=== PATIENT | female | born 1950 | race Two or more races ===

== ENCOUNTER 2016-12-11 08:07 | Day surgery (SDC) | payer OTHER, MEDICAID ==
[~2016-12-11] VITALS: Ht 160 cm; Wt 79.8 kg
[~2016-12-11 08:07] MED LIST: ASCO500T11 PO; ASPI325T4 PO; CAR3125T PO; CLOP75TA28 PO; DOC100C PO; INSLANTI SC; INSUINJ9 SC; IODIXANOL 320MG/ML 100ML BTL IV ONE; LEVO750T64 PO; LIDOCAINE 2%HCL (LOCAL ANESTH.) INJ 20ML MDV ONE; LISI10TA6 PO; METF-372 PO; OMEP20CA74 PO; RANI-229 PO; RANI300C7 PO; SITA100T7 PO; SUCR1TAB PO; TRIA75TA55 PO
[2016-12-11] MEDS ORDERED: fentaNYL CITRATE 100 MCG/2 ML VL ONE (08:45)
[2016-12-11] MEDS ORDERED: ANGIOMAX 250 MG VIAL IV ONE (08:45)
[2016-12-11] MEDS ORDERED: SODIUM CHL 0.9% 50 ML ONE (08:46)
[2016-12-11] MEDS ORDERED: MIDAZOLAM HCL 1MG/1ML-2 ML VIAL ONE (08:46)
[2016-12-11] MEDS ORDERED: CLOPIDOGREL BISULFATE 75 MG TAB PO SCH (10:00)
== END 2016-12-11 14:50 | disposition home or self-care (01) ==
LOC: CATH 08:07
PROVIDERS: ATTEND Internal Medicine
DX: I20.9 Angina pectoris, unspecified (principal); Z95.1 Presence of aortocoronary bypass graft; F41.9 Anxiety disorder, unspecified; F32.9 Major depressive disorder, single episode, unspecified; N39.0 Urinary tract infection, site not specified; Z91.013 Allergy to seafood; Z88.6 Allergy status to analgesic agent; I25.2 Old myocardial infarction; I63.9 Cerebral infarction, unspecified
CPT/HCPCS: 36247; 82962; 93005; C1725; C1760; C1769; C1887; C1894; J0583; J1644; J2250; J3010; J7030; Q9967; 99152; 99153

== ENCOUNTER 2018-03-27 18:38 | Emergency (ER) | payer OTHER, MEDICAID ==
[~2018-03-27] VITALS: Ht 157.5 cm; Wt 77.1 kg
[~2018-03-27 18:38] MED LIST changes: -IODIXANOL 320MG/ML 100ML BTL IV ONE; -LIDOCAINE 2%HCL (LOCAL ANESTH.) INJ 20ML MDV ONE
[2018-03-27] MEDS ORDERED: ONDANSETRON HCL 4 MG/2 ML VIAL IV ONE (20:45)
[2018-03-27] MEDS ORDERED: HYDROmorphone HCL 2 MG/ML VL IV ONE ×2 (20:45→23:45)
[2018-03-28 00:21] VITALS: BP 146/52
== END 2018-03-28 00:42 | disposition short-term general hospital (02) ==
LOC: EDBD 18:38 → ER 18:42
DX: S42.222A 2-part displaced fracture of surgical neck of left humerus, initial encounter for closed fracture (principal); S50.02XA Contusion of left elbow, initial encounter; E11.9 Type 2 diabetes mellitus without complications; E78.5 Hyperlipidemia, unspecified; I10 Essential (primary) hypertension; J45.909 Unspecified asthma, uncomplicated; Z86.73 Personal history of transient ischemic attack (TIA), and cerebral infarction without residual deficits; Z79.4 Long term (current) use of insulin; Z79.899 Other long term (current) drug therapy; Z88.6 Allergy status to analgesic agent; Z91.013 Allergy to seafood; W01.0XXA Fall on same level from slipping, tripping and stumbling without subsequent striking against object, initial encounter; Y93.89 Activity, other specified; Y99.8 Other external cause status; Y92.009 Unspecified place in unspecified non-institutional (private) residence as the place of occurrence of the external cause
CPT/HCPCS: 29105; 73030; 73070; 93005; 96374; 96375; 96376; 99285; J1170; J2405

== ENCOUNTER 2021-08-13 20:11 | Emergency (ER) | payer OTHER, MEDICAID ==
[~2021-08-13] VITALS: Ht 157.5 cm; Wt 89.1 kg
[~2021-08-13 20:11] MED LIST changes: +LISI-716 PO; -LISI10TA6 PO; -RANI-229 PO; +RANI300T PO
[2021-08-13 22:26] LABS: Basophils # (auto) 0 10 ^3/uL (0-0.2); Basophils % (auto) 0.4 % (0.0-2.0); Eosinophils # (auto) 0.3 10 ^3/uL (0-0.8); Eosinophils % (auto) 3.8 % (0.0-7.0); Hemoglobin 11.4 g/dL (12.2-16.2); Lymphocytes # (auto) 3.1 10 ^3/uL (0.4-5.4); Lymphocytes % (auto) 41.4 % (10.0-50.0); Mean Corpuscular Hemoglobin 29.7 pg (28.0-32.0); Mean Corpuscular Hgb Conc. 32.6 g/dL (32.0-36.0); Mean Corpuscular Volume 91.2 fL (80.0-100.0); Monocytes # (auto) 0.4 10 ^3/uL (0-1.3); Monocytes % (auto) 5.8 % (0.0-12.0); Neutrophils # (auto) 3.6 10 ^3/uL (1.6-8.6); Neutrophils % (auto) 48.6 % (37.0-80.0); Nucleated Red Blood Cells % 0.1 %; Red Blood Cells 3.84 10^6/uL (4.0-5.20); Red Cell Distribution Width 13.5 % (11.8-14.3); White Blood Cell 7.4 10^3/uL (4.4-10.8)
[2021-08-13 22:43] LABS: Albumin 3.6 g/dL (3.4-5.0); Calcium 8.7 mg/dL (8.5-10.1); Potassium 4.5 mmol/L (3.5-5.1)
[2021-08-13 22:47] LABS: Bilirubin, Total 0.2 mg/dL (0.2-1.0); Total Protein 7.6 g/dL (6.4-8.2)
[2021-08-14 00:25] LABS: Urine Bacteria NONE SEEN /hpf (None Seen); Urine Blood TRACE /uL (Negative); Urine Specific Gravity 1.018 (1.001-1.035); Urine WBC 1 /hpf (0 - 5)
[2021-08-14 01:33] VITALS: BP 147/68
== END 2021-08-14 05:00 | disposition left against medical advice (07) ==
LOC: ER 20:11
DX: I10 Essential (primary) hypertension (principal); Z53.21 Procedure and treatment not carried out due to patient leaving prior to being seen by health care provider
CPT/HCPCS: 36415; 80053; 81001; 84484; 85025; 93005

== ENCOUNTER 2025-01-16 11:06 | Inpatient (IN) | payer MEDICARE, MEDICAID ==
[~2025-01-16] VITALS: Ht 157.5 cm; Wt 84.6 kg
[~2025-01-16 11:06] MED LIST changes: -ASPI325T4 PO; +ASPI325T6 PO; +LEVO750T40 PO; -LEVO750T64 PO; -LISI-716 PO; +LISI10TA34 PO
--- NOTE | 2025-01-16 11:46 | ED.PDOC ---
History of Present Illness(SKN HPI Comments 74y F who presents to the ED for chief complaint of wound care. Pt presents with caregiver who states pt had a wound to the L great toe for the past 1x month after suffering cut from unknown cause. Pt was seen by podiatry and admitted for wound care and discharged Wednesday, 2 days prior. Pt caregiver called [facility] who sent outpatient antibiotics and Pt was seen at urgent care today and sent to the ED for further evaluation. Pt now in the ED, has drainage from wound. PT otherwise denies any other symptoms at this time. Chief Complaint: Wound Check Time Seen by MD: 11:35 Primary Care Provider: HIRAM History of Present Illness: Medications, Allergies Allergies: Coded Allergies: Ceftriaxone (Verified Allergy, Unknown, 09/25/15) Morphine (Unverified Allergy, Unknown, 12/08/16) Shrimp Flavor Agent (non-screening) (Verified Allergy, Unknown, 12/08/16) Home Meds Reported Medications Triamterene & Hydrochlorothiaz (Maxzide) 1 Tab Tab, 1 TAB PO DAILY, #30 TAB 5 Refills 12/08/16 Ascorbic Acid (VITAMIN C TABLET) 500 Mg Tb, 1 TAB PO DAILY, #30 TAB 3 Refills 12/08/16 Ranitidine Hcl (Ranitidine Hcl) 300 Mg Cap, 1 CAP PO DAILY, #30 CAP 3 Refills 12/08/16 Levofloxacin Hemihydrate (LEVOFLOXACIN) 750 Mg Tab, 750 MG PO DAILY, MG 12/08/16 Sucralfate (Sucralfate) 1 Gm Tab, 1 GM PO DAILY, GM 12/08/16 Lisinopril (Lisinopril) 10 Mg Tab, 10 MG PO DAILY, TAB 10/26/15 Aspirin (Aspirin) 325 Mg Tab, 1 TAB PO DAILY, #30 TAB 5 Refills 10/26/15 Carvedilol (Coreg) 3.125 Mg Tab, 1 TAB PO BID, #180 TAB 1 Refill 10/26/15 Docusate Sodium (COLACE CAPSULE) 100 Mg Cp, 100 MG PO HS, CP 10/26/15 Omeprazole (PRILOSEC) 20 Mg Cap, 40 MG PO DAILY, CAP 10/26/15 Clopidogrel Bisulfate (Plavix) 75 Mg Tab, 1 TAB PO DAILY, #90 TAB 1 Refill 10/26/15 Sitagliptin Phosphate (Januvia) 100 Mg Tab, 1 TAB PO DAILY, #30 TAB 5 Refills 10/26/15 Ranitidine Hcl (Ranitidine Hcl) 300 Mg Tab, 1 TAB PO QPM, #90 TAB 3 Refills 10/26/15 Metformin Hydrochloride (Metformin Hcl) 1,000 Mg Tab, 1000 MG PO BID 04/15/12 Insulin Glulisine (Apidra Solostar) Solostar Inj, 5 SC TIDWM 04/15/12 Insulin Glargine (Lantus) 100 Units/Ml Vial, 40 UNITS SC BID 04/15/12 Information Source: Patient, Friend Mode of Arrival: Wheelchair Brought in by: caregiver Severity: Moderate Timing: Weeks Past Medical History PAST MEDICAL HISTORY: Asthma, CVA, Depression, DM, High Lipids, HTN Surgical History: 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: No 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 Family History Family History: No family hx of Cancer, No family hx of DM, No family hx of HTN Social History Smoker: Non-Smoker Alcohol: Denies ETOH Use Drugs: Denies Drug Use Lives In: Home Constitutional: denies: chills, diaphoresis, fatigue, fever, malaise, sweats, weakness, others EENTM: denies: blurred vision, double vision, ear bleeding, ear discharge, ear drainage, ear pain, ear ringing, eye pain, eye redness, hearing loss, mouth pain, mouth swelling, nasal discharge, nose bleeding, nose congestion, nose pain, photophobia, tearing, throat pain, throat swelling, voice changes, others Respiratory: denies: cough, hemoptysis, orthopnea, SOB at rest, shortness of breath, SOB with excertion, stridor, wheezing, others Cardiovascular: denies: chest pain, dizzy spells, diaphoresis, Dyspnea on exertion, edema, irregular heart beat, left arm pain, lightheadedness, palpitations, PND, syncope, others Gastrointestinal: denies: abdomen distended, abdominal pain, blood streaked bowels, constipated, diarrhea, dysphagia, difficulty swallowing, hematemesis, melena, nausea, poor appetite, poor fluid intake, rectal bleeding, rectal pain, vomiting, others Genitourinary: denies: abnormal vagina bleeding, burning, dyspareunia, dysuria, flank pain, frequency, hematuria, incontinence, pain, , vagina discharge, urgency, others Neurological: denies: dizziness, fainting, headache, left sided numbness, left sided weakness, numbness, paresthesia, pre-existing deficit, right sided numbness, right sided weakness, seizure, speech problems, tingling, tremors, weakness, others Musculoskeletal: denies: back pain, gout, joint pain, joint swelling, muscle pain, muscle stiffness, neck pain, others Integumetry: reports: wounds (L great toe); denies: bruises, change in color, change in hair/nails, dryness, laceration, lesions, lumps, rash, others Allergic/Immunocompromised: denies: Difficulty Healing, Frequent Infections, Hives, Itching, others Hematologic/Lymphatic: denies: anemia, blood clots, easy bleeding, easy bruising, swollen glands, others Endocrine: denies: excessive hunger, excessive sweating, excessive thirst, excessive urination, flushing, intolerance to cold, intolerance to heat, unexpl ained weight gain, unexplained weight loss, others Psychiatric: denies: anxiety, bipolar disorder, depression, hopeless, panic disorder, schizophrenia, sleepless, suicidal, others All Other Systems: Reviewed and Negative Physical Exam General Appearance: No Apparent Distress, Normal HEENT: Normal ENT Inspection, Pharynx Normal, TMs Normal Neck: Full Range of Motion, Non-Tender, Normal, Normal Inspection Respiratory: Chest Non-Tender, Lungs Clear, No Accessory Muscle Use, No Respiratory Distress, Normal Breath Sounds Cardiovascular: No Edema, No JVD, No Murmur, No Gallop, Normal Peripheral Pulses, Regular Rate/Rhythm Breast Exam: Deferred Gastrointestinal: No Organomegaly, Non Tender, No Pulsatile Mass, Normal Bowel Sounds, Soft Genitalia: Deferred Pelvic: Deferred Rectal: Deferred Extremities: No calf tenderness, Normal capillary refill, Normal inspection, Normal range of motion, Non-tender, No pedal edema Musculoskeletal : Apperance: Normal Neurologic: Alert, greens tier II-XII nml as Tested, No Motor Deficits, Normal Affect, Normal Mood, No Sensory Deficits Cerebellar Function: Normal Reflexes: Normal Skin: Wounds (2 fiuld filler blisters 1x1 cm to lst metatarsal joint, cap refill less than 3 sec, neurovasculary intact) Lymphatic: No Adenopathy Was a procedure done? Was a procedure done?: No Differential Diagnosis (INTG) Differential Diagnosis: Puncture Wound Abscess: Abscess, Bacteremia, Cellulitis Differential Diagnosis: Osteomyelitis X-Ray, Labs, Meds, VS Vital Signs Date Time Temp Pulse Resp B/P (MAP) Pulse Ox O2 Delivery O2 Flow Rate FiO2 01/16/25 16:20 97.0 59 16 163/67 (99) 100 97.0 01/16/25 11:09 96.9 70 16 150/75 98 96.9 Lab Test 01/16/25 15:08 01/16/25 13:59 01/16/25 13:50 01/16/25 13:18 Range/Units Erythrocyte Sedimentation Rate 46 H 0-20 mm/hr Thyroid Stimulating Hormone (TSH) 1.46 0.55-4.78 uIU/mL Lactic Acid Level 0.8 0.4-2.0 mmol/L White Blood Count 7.2 4.4-10.8 10^3/uL Red Blood Count 3.76 L 4.0-5.20 10^6/uL Hemoglobin 11.5 L 12.2-16.2 g/dL Hematocrit 36.3 36.0-46.0 % Mean Corpuscular Volume 96.4 80.0-100.0 fL Mean Corpuscular Hemoglobin 30.5 28.0-32.0 pg Mean Corpuscular Hemoglobin Concent 31.7 L 32.0-36.0 g/dL Red Cell Distribution Width 14.6 H 11.8-14.3 % Platelet Count 341 140-450 10^3/uL Mean Platelet Volume 7.9 6.9-10.8 fL Neutrophils (%) (Auto) 53.4 37.0-80.0 % Lymphocytes (%) (Auto) 33.9 10.0-50.0 % Monocytes (%) (Auto) 8.5 0.0-12.0 % Eosinophils (%) (Auto) 3.5 0.0-7.0 % Basophils (%) (Auto) 0.7 0.0-2.0 % Neutrophils # (Auto) 3.8 1.6-8.6 10 ^3/uL Lymphocytes # (Auto) 2.4 0.4-5.4 10 ^3/uL Monocytes # (Auto) 0.6 0-1.3 10 ^3/uL Eosinophils # (Auto) 0.2 0-0.8 10 ^3/uL Basophils # (Auto) 0.1 0-0.2 10 ^3/uL Nucleated Red Blood Cells 0.1 % Prothrombin Time 10.2 9.3-11.8 sec Prothrombin Time INR 0.96 0.9-1.15 Activated Partial Thromboplast Time 25.1 24.5-34.5 SEC Sodium Level 138 136-145 mmol/L Potassium Level 4.9 3.5-5.1 mmol/L Chloride Level 108 H 98-107 mmol/L Carbon Dioxide Level 20 20-31 mmol/L Anion Gap 10 5-15 Blood Urea Nitrogen 29 H 9-23 mg/dL Creatinine 1.20 H 0.550-1.02 mg/dL Glomerular Filtration Rate Calc 47 >90 mL/min BUN/Creatinine Ratio 24.2 H 10.0-20.0 Serum Glucose 396 H 74-106 mg/dL Hemoglobin A1c 10.2 H <5.7 % A1C Calcium Level 9.0 8.7-10.4 mg/dL Phosphorus Level 3.9 2.4-5.1 mg/dL Magnesium Level 2.0 1.6-2.6 mg/dL C-Reactive Protein High Sensitivity 1.66 H <1.0 mg/dL Triglycerides Level 215 H < 150 mg/dL Cholesterol Level 134 < 200 mg/dL LDL Cholesterol 73 < 100 mg/dL HDL Cholesterol 32 L 40-59 mg/dL Vitamin B12 Level 680 211-911 pg/mL Vitamin D 25-Hydroxy 43.8 30.0-100 ng/mL Microbiology Date/Time Source Procedure Growth Status 01/16/25 13:59 Blood Blood Culture - Final NO GROWTH AFTER 5 DAYS OF INCUBATION. Complete 01/16/25 13:51 Blood Blood Culture - Final NO GROWTH AFTER 5 DAYS OF INCUBATION. [facility] [id number] [place] [address] Ph: [phone] DIAGNOSTIC IMAGING Diagnostic Imaging Report : [id number] Signed PATIENT: KP COMBS ACCT: [id number] UNIT: [id number] : 1950 LOC: ER ROOM / BED: / AGE / SEX: 74 / F ADM STATUS: REG ER SERVICE 1145 ORDERING PHYSICIAN: HONORIO TORRES NP PROCEDURE(s): LFTCT - CT L FOOT WO CONTRAST REASON: Toe pain & R/o OM of the great toe ORDER NUMBER(s): [id number], ACCESSION NUMBER(s): [id number] CLINICAL INDICATION: Toe pain R/o OM of the great toe. TECHNIQUE: Noncontrast CT of the left foot was performed. Sagittal and coronal reformatted images are provided. COMPARISON: None CT Dose: CTDI volume is 7.75 mGy. Dose-length product is 195.1 mGy*cm FINDINGS: No acute fracture. There is some cortical destruction in the 1st metatarsal head, adjacent to soft tissue swelling and subcutaneous gas in the great toe at the level of the IP joint. There are 2nd, 3rd, 4th and 5th hammertoe deformities. There is midfoot and forefoot arthrosis. There is fatty replacement in the muscles of the lower extremity. IMPRESSION: 1. Findings which may represent osteomyelitis in the 1st metatarsal bone, adjace nt to soft tissue inflammatory changes which may reflect cellulitis. MRI of the left foot is recommended for further evaluation. 2. Hammertoe deformities. All CT scans at this medical facility are performed using dose modulation techniques as appropriate to a performed exam including the following: Automated exposure control was utilized; adjustment of the MA and/or KV according to patient size; and use of iterative reconstruction technique. ATED BY: CHINEDU LU MD DICTATED DATE/TIME: 01/16/25 125 SIGNED BY: CHINEDU LU MD SIGNED DATE/TIME: 01/16/25 125 CC: X-Ray, Labs, Meds, VS Comment Patient arrives alert and oriented, ABC's intact, afebrile, vital signs stable, saturating well in room air Peripheral IV insertion+ labs were ordered. CBC was ordered to exclude anemia, blood loss, or infection. BMP was ordered to exclude electrolyte abnormalities, renal failure, dehydration, hyperglycemia Acid, sed rate, CRP, blood cultures were ordered Diagnostic imaging ordered by me and results interpreted by radiology : CT L foot 1. Findings which may represent osteomyelitis in the 1st metatarsal bone, adjace nt to soft tissue inflammatory changes which may reflect cellulitis. MRI of the left foot is recommended for further evaluation. 2. Hammertoe deformities. Patient well appearing. VSS. Given History, Exam, and Workup I have low suspicion for Necrotizing Fasciitis, Abscess, or DVT as cause of symptoms. Presentation consistent with Ostomyelitis Interventions: Vancomycin 1g IV Admit for IV abx, tissue evaluation/possible debridement, and continued monitoring Time of 1ST Reevaluation: 12:05 Reevaluation 1ST: Improved Patient Education/Counseling: Diagnosis, Treatment Family Education/Counseling: Diagnosis, Treatment SEPSIS Sepsis Screen Date sepsis recognized/suspect: Jan 16, 2025 Time Sepsis recognized/suspect: 1113 Recent Procedure: No On Antibiotic Therapy: No Respiratory Rate >20: No Heart Rate >90: No Temp<36 C (96.8 F) or >38.3 C: No SBP <90 or MAP <65 mmHG: No New Acute Mental Status Change: No Is the patient on CPAP, BIPAP,: No Physician Orders Ct L Foot Wo Contrast (01/16/25 11:45) Vital Signs Date Time Temp Pulse Resp B/P (MAP) Pulse Ox O2 Delivery O2 Flow Rate FiO2 01/16/25 16:20 97.0 59 16 163/67 (99) 100 97.0 01/16/25 11:09 96.9 70 16 150/75 98 96.9 Laboratory Tests Test 01/16/25 13:18 01/16/25 13:50 White Blood Count 7.2 10^3/uL (4.4-10.8) Lactic Acid Level 0.8 mmol/L (0.4-2.0) Departure 1 Departure Time of Disposition: 13:23 Impression: Primary Impression: Osteomyelitis of great toe of left foot Disposition: ADMITTED INPATIENT Condition: Fair Critical Care Note Critical Care Time?: No Stability Stability form required: No Heart Score Heart Score: Heart Score Response (Comments) Value History N/A 0 EKG N/A 0 Age N/A 0 Risk Factors N/A 0 Troponin N/A 0 Total 0 I personally scribed for HONORIO TORRES NP ([email or web address]) on 01/16/25 at 11:46. Electronically submitted by Feliberto Restrepo ([email or web address]). I personally scribed for HONORIO TORRES NP ([email or web address]) on 01/16/25 at 12:13. Electronically submitted by Feliberto Restrepo ([employer] I personally scribed for HONORIO TORRES NP ([email or web address]) on 01/16/25 at 13:12. Electronically submitted by Feliberto Restrepo ([email or web address]). HONORIO TORRES NP Jan 16, 2025 11:46
--- NOTE | 2025-01-16 12:54 | DVH ---
CLINICAL INDICATION: Toe pain R/o OM of the great toe. TECHNIQUE: Noncontrast CT of the left foot was performed. Sagittal and coronal reformatted images are provided. COMPARISON: None CT Dose: CTDI volume is 7.75 mGy. Dose-length product is 195.1 mGy*cm FINDINGS: No acute fracture. There is some cortical destruction in the 1st metatarsal head, adjacent to soft tissue swelling and subcutaneous gas in the great toe at the level of the IP joint. There are 2nd, 3rd, 4th and 5th hammertoe deformities. There is midfoot and forefoot arthrosis. There is fatty replacement in the muscles of the lower extremity. IMPRESSION: 1. Findings which may represent osteomyelitis in the 1st metatarsal bone, adjacent to soft tissue inflammatory changes which may reflect cellulitis. MRI of the left foot is recommended for further evaluation. 2. Hammertoe deformities. All CT scans at this medical facility are performed using dose modulation techniques as appropriate to a performed exam including the following: Automated exposure control was utilized; adjustment of the MA and/or KV according to patient size; and use of iterative reconstruction technique.
[2025-01-16] MEDS ORDERED: VANCOMYCIN PER PHARMACY 0 MG IV SCH ×2 (13:30→16:45)
[2025-01-16 13:36] LABS: Hematocrit 36.3 % (36.0-46.0); Hemoglobin 11.5 g/dL (12.2-16.2); Mean Corpuscular Hemoglobin 30.5 pg (28.0-32.0); Mean Corpuscular Volume 96.4 fL (80.0-100.0); Nucleated Red Blood Cells % 0.1 %
[2025-01-16 13:43] LABS: Potassium 4.9 mmol/L (3.5-5.1); Sodium 138 mmol/L (136-145)
[2025-01-16 13:44] LABS: Anion Gap 10 (5-15); Carbon Dioxide 20 mmol/L (20-31)
[2025-01-16 13:47] LABS: Chloride 108 mmol/L (98-107)
[2025-01-16 13:50] LABS: BUN/Creatinine Ratio 24.2 (10.0-20.0); Blood Urea Nitrogen 29 mg/dL (9-23); Glucose 396 mg/dL (74-106)
[2025-01-16 13:52] LABS: Calcium 9.0 mg/dL (8.7-10.4)
--- NOTE | 2025-01-16 16:41 | DVHHPRES ---
History of Present Illness Resident Creating Document: BYRON YOO RESIDENT History of Present Illness Kelly Mcarthur is a 74 year old female patient who presents to the ED with chief complaint of nausea, non bloody vomiting with c;ear emesis, fever, headaches and non healing left foot wound, which started 1 week before her admission. PAtient went to seek assistance at another hospital 1 week ago due to these symptoms, was hospitalized, but did not improve her symptoms after discharge. Denies any other associated symptoms. Past medical history: Hypertension, dyslipidemia, diabetes, CAD s/p CABG in 2015 and PCI (last one 2023), asthma, brain bleed in 2015, diabetic foot s/p right toes amputation, arthritis and CKD Surgical history: CABG 2015, PCI 2023, multiple staged right toes amputation last one 9 years ago, right ankle repair with plates placed. Family history: mother and father had heart disease Social history: Lives in [place] alone, has cargiver that goes from 4pm until 4 am (NOK son, Emre Rhodes). Denies current tobacco, alcohol and other drug abuse. Allergies: Ceftriaxone, morphine, shrimp Home medication: Does not recall PAtient seen and examined at bedside. Currently has no new complains. Patient admitted for further management Past Medical History Per HPI Past Surgical History Per HPI Family History PEr HPI Past Social History Per HPI Review of Systems Review of Systems Per HPI Allergies: Coded Allergies: Ceftriaxone (Verified Allergy, Unknown, 09/25/15) Morphine (Unverified Allergy, Unknown, 12/08/16) Shrimp Flavor Agent (non-screening) (Verified Allergy, Unknown, 12/08/16) Medications Current Medications Medications Dose Ordered Sig/Bree Route Start Time Stop Time Status Last Admin Dose Admin Vancomycin HCl 0 ml @ 0 mls/hr PER PHARMACY IV 01/16/25 13:30 UNV Exam Vital Signs Vital Signs Date Time Temp Pulse Resp B/P (MAP) Pulse Ox O2 Delivery O2 Flow Rate FiO2 01/16/25 16:20 97.0 59 16 163/67 (99) 100 97.0 Exam Patient lying in bed, in no acute distress General: Lucid, afebrile, mucosae are moist Cardiovascular: Normal S1 and S2. No murmurs, gallops or rubs Respiratory: Normal ventilation mechanics. Clear lung sounds on auscultation Abdomen: Soft, nontender, no organomegaly, normal bowel sounds MSK/skin: Mobilizes 4 limbs. Skin is dry and warm. Right toes amputaed, no purulent discharge nor erythema. Left foot has erythema on first metatarsal region. Diminished pedial and posterior tibial pulses. Neurological: Oriented in 3 spheres. No motor no sensitive deficits. Pupils are isocoric and reactive Labs/Xrays Labs Test 01/16/25 15:08 01/16/25 13:50 01/16/25 13:18 Range/Units Lactic Acid Level 0.8 0.4-2.0 mmol/L White Blood Count 7.2 4.4-10.8 10^3/uL Red Blood Count 3.76 L 4.0-5.20 10^6/uL Hemoglobin 11.5 L 12.2-16.2 g/dL Hematocrit 36.3 36.0-46.0 % Mean Corpuscular Volume 96.4 80.0-100.0 fL Mean Corpuscular Hemoglobin 30.5 28.0-32.0 pg Mean Corpuscular Hemoglobin Concent 31.7 L 32.0-36.0 g/dL Red Cell Distribution Width 14.6 H 11.8-14.3 % Platelet Count 341 140-450 10^3/uL Mean Platelet Volume 7.9 6.9-10.8 fL Neutrophils (%) (Auto) 53.4 37.0-80.0 % Lymphocytes (%) (Auto) 33.9 10.0-50.0 % Monocytes (%) (Auto) 8.5 0.0-12.0 % Eosinophils (%) (Auto) 3.5 0.0-7.0 % Basophils (%) (Auto) 0.7 0.0-2.0 % Neutrophils # (Auto) 3.8 1.6-8.6 10 ^3/uL Lymphocytes # (Auto) 2.4 0.4-5.4 10 ^3/uL Monocytes # (Auto) 0.6 0-1.3 10 ^3/uL Eosinophils # (Auto) 0.2 0-0.8 10 ^3/uL Basophils # (Auto) 0.1 0-0.2 10 ^3/uL Nucleated Red Blood Cells 0.1 % Sodium Level 138 136-145 mmol/L Potassium Level 4.9 3.5-5.1 mmol/L Chloride Level 108 H 98-107 mmol/L Carbon Dioxide Level 20 20-31 mmol/L Anion Gap 10 5-15 Blood Urea Nitrogen 29 H 9-23 mg/dL Creatinine 1.20 H 0.550-1.02 mg/dL Glomerular Filtration Rate Calc 47 >90 mL/min BUN/Creatinine Ratio 24.2 H 10.0-20.0 Serum Glucose 396 H 74-106 mg/dL Calcium Level 9.0 8.7-10.4 mg/dL C-Reactive Protein High Sensitivity 1.66 H <1.0 mg/dL SEPSIS Sepsis Screen Date sepsis recognized/suspect: Jan 16, 2025 Time Sepsis recognized/suspect: 1112 Recent Procedure: No On Antibiotic Therapy: No Respiratory Rate >20: No Heart Rate >90: No Temp<36 C (96.8 F) or >38.3 C: No SBP <90 or MAP <65 mmHG: No New Acute Mental Status Change: No Is the patient on CPAP, BIPAP,: No Physician Orders Ct L Foot Wo Contrast (01/16/25 11:45) Blood Culture (01/16/25 13:20) Erythrocyte Sedimentation Rate (01/16/25 13:20) Vancomycin Per Pharmacy (01/16/25 13:30) Admit (01/16/25 16:31) Code Status (01/16/25 16:31) Acetaminophen Tablet (Tylenol Tablet) (01/16/25 16:45) Ondansetron Hcl (Zofran) (01/16/25 16:45) Complete Blood Count (01/17/25 04:00) Comprehensive Metabolic Panel (01/17/25 04:00) Echo 2d Mode Cardiac Dop (01/16/25 16:31) Morphine Sulfate Injection (01/16/25 16:45) Lovenox 40mg (01/17/25 10:00) Oxygen By Nasal Cannula (01/16/25 16:31) Stat Ekg For Chest Pain (01/16/25 16:31) Notify Md Of Changes From Base (01/16/25 16:31) Elementary Vocal 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 Teacher For 24 Hours (01/16/25 16:31) Emergency Dysrhythmia Protocol (01/16/25 16:31) Rhythm Strips Once Every Shift (01/16/25 16:31) Urine Bacterial Culture (01/16/25 16:31) Respiratory Culture W/ Gs (01/16/25 16:31) Vitamin D, 25-Hydroxy (01/16/25 16:31) Vitamin B12 (01/16/25 16:31) Urinalysis (01/16/25 16:31) Thyroid Stimulating Hormone (01/16/25 16:31) PTPTT (01/16/25 16:31) Phosphorus (01/16/25 16:31) Magnesium (01/16/25 16:31) Lipid Panel (01/16/25 16:) Lactic Acid W/ Reflex Order (01/16/25 16:31) Hemoglobin A1c (01/16/25 16:31) Vancomycin (01/16/25 16:45) Zosyn Extended Infusion (01/16/25 22:00) NS (01/16/25 16:45) NS (01/16/25 16:45) *Podiatry Consult [facility](Dvmg) (01/16/25 16:31) * Wound Consult (01/16/25 ) Ascorbic Acid Tablet (Vitamin C Tablet) (01/17/25 10:00) Carvedilol Tablet (Coreg Tablet) (01/16/25 22:00) Clopidogrel Bisulfate (Plavix) (01/17/25 10:00) Docusate Sodium Capsule (Colace Capsule) (01/16/25 22:00) Insulin Lantus (Glargine) (Lantus) (01/16/25 22:00) Sucralfate Tab (Carafate Tab) (01/17/25 10:00) (Nf) Aspirin (01/17/25 10:00) (Nf) Lisinopril (01/17/25 10:00) (Nf) Omeprazole (Prilosec) (01/17/25 10:00) Wound Culture W/ Gs (01/16/25 16:31) Vital Signs Date Time Temp Pulse Resp B/P (MAP) Pulse Ox O2 Delivery O2 Flow Rate FiO2 01/16/25 16:20 97.0 59 16 163/67 (99) 100 97.0 01/16/25 11:09 96.9 70 16 150/75 98 96.9 Laboratory Tests Test 01/16/25 13:18 01/16/25 13:50 White Blood Count 7.2 10^3/uL (4.4-10.8) Lactic Acid Level 0.8 mmol/L (0.4-2.0) Assessment/Plan Assessment/Plan ASSESSMENT Osteomyelitis Cellulitis Diabetic foot complicated with osteomyelitis LEVI hemodynamically mediated (VMN) on CKD CAD s/p CABG and PCI Hypertension Dyslipidemia Diabetes Asthma History of hemorrhagic stroke Obese PLAN Admitted patient to [facility] Completed left foot CT: Osteomyelitis of 1st metatarsal and cellulitis Consulted podiatry and wound care Ordered cultures Currently under empiric IV antibiotics (Vancomycin and Zosyn) Ordered IV fluids Ordered echocardiogram and lower limb duplex US Goals of care discussed with patient for over 18 minutes: Full code status Discussed plan with Dr Robertson, patient and nurses: Admitted to [facility]. Under empiric IV antibiotics, IV fluids and with wound car. Consulted podiatry. Plan discussed with: Patient, Other My Orders Orders - BYRON YOO RESIDENT Procedure Category Date Status Time Admit ADMIT 01/16/25 Verified 16:31 Code Status CODE 01/16/25 Verified 16:31 Acetaminophen Tablet PHA 01/16/25 Verified (Tylenol Tablet) 16:45 Ondansetron Hcl PHA 01/16/25 Verified (Zofran) 16:45 Complete Blood Count LAB 01/17/25 Verified 04:00 Comprehensive LAB 01/17/25 Verified Metabolic Panel 04:00 Echo 2d Mode Cardiac US 01/16/25 Verified DOP 16:31 Morphine Sulfate PHA 01/16/25 Verified Injection 16:45 Lovenox 40mg PHA 01/17/25 Verified 10:00 Oxygen By Nasal RT 01/16/25 Verified Cannula 16:31 Stat Ekg For Chest [facility] 01/16/25 Verified Pain 16:31 Notify Of Changes [facility] 01/16/25 Verified From Base 16:31 Elementary Vocal Music Teacher For [facility] 01/16/25 Verified 24 Hours 16:31 Emergency Dysrhythmia [facility] 01/16/25 Verified Protocol 16:31 Rhythm Strips Once [facility] 01/16/25 Verified Every Shift 16:31 Urine Bacterial [facility] 01/16/25 Verified Culture 16:31 Respiratory Culture [facility] 01/16/25 Verified W/ Gs 16:31 Vitamin D, 25-Hydroxy LAB 01/16/25 Verified 16:31 Vitamin B12 LAB 01/16/25 Verified 16:31 Urinalysis LAB 01/16/25 Verified 16:31 Thyroid Stimulating LAB 01/16/25 Verified Hormone 16:31 PTPTT LAB 01/16/25 Verified 16:31 Phosphorus LAB 01/16/25 Verified 16:31 Magnesium LAB 01/16/25 Verified 16:31 Lipid Panel LAB 01/16/25 Verified 16:31 Lactic Acid W/ Reflex LAB 01/16/25 Verified Order 16:31 Hemoglobin A1c LAB 01/16/25 Verified 16:31 Vancomycin PHA 01/16/25 Verified 16:45 Zosyn Extended PHA 01/16/25 Verified Infusion 22:00 NS PHA 01/16/25 Verified 16:45 NS PHA 01/16/25 Verified 16:45 *Podiatry Consult CONS 01/16/25 Verified [facility]uss[facility](Dvmg) 16:31 * Wound Consult CONS 01/16/25 Verified Ascorbic Acid Tablet PHA 01/17/25 Verified (Vitamin C Tablet) 10:00 Carvedilol Tablet PHA 01/16/25 Verified (Coreg Tablet) 22:00 Clopidogrel Bisulfate PHA 01/17/25 Verified (Plavix) 10:00 Docusate Sodium PHA 01/16/25 Verified Capsule (Colace 22:00 Insulin Lantus PHA 01/16/25 Verified (Glargine) (Lantus) 22:00 Sucralfate Tab PHA 01/17/25 Verified (Carafate Tab) 10:00 (Nf) Aspirin PHA 01/17/25 Verified 10:00 (Nf) Lisinopril PHA 01/17/25 Verified 10:00 (Nf) Omeprazole PHA 01/17/25 Verified (Prilosec) 10:00 Wound Culture W/ Gs [facility] 01/16/25 Verified 16:31 Date of Service: Jan 16, 2025 Billing Provider: KALEIGH DO MD Common Visit Codes: [id number] INP/OBS CARE (HIGH) Secondary Visit Codes: 90225-[id number] CARE PLAN 30 MINUTES BYRON YOO RESIDENT Jan 16, 2025 16:41
[2025-01-16] MEDS ORDERED: DEXTROSE (50%) 50ML SYRG IV PRN ×2 (16:45→19:45)
[2025-01-16] MEDS ORDERED: MORPHINE SULFATE INJ 2 MG/ml SYRG IV PRN (16:45)
[2025-01-16] MEDS: ACCU-CHEK COMFORT CURVE STRIP VI SCH ×2 (17:00→22:24)
[2025-01-16] MEDS ORDERED: InsuLIN REG 1unit/0.01ml Soln (100units/ml) SC SCH (17:00)
[2025-01-16 17:08] LABS: Magnesium 2.0 mg/dL (1.6-2.6); Triglycerides 215.0 mg/dL (< 150)
[2025-01-16 17:09] LABS: Cholesterol 134.0 mg/dL (< 200)
[2025-01-16 17:10] LABS: HDL Cholesterol 32.0 mg/dL (40-59)
[2025-01-16 17:12] LABS: INR 0.96 (0.9-1.15); Partial Thromboplastin Time 25.1 SEC (24.5-34.5); Prothrombin Time 10.2 sec (9.3-11.8)
[2025-01-16] MEDS: SODIUM CHLORIDE 0.9% 1,000 ML IV SCH (19:41)
[2025-01-16] MEDS: SODIUM CHLORIDE 0.9% 500 ML IV ONE (19:58)
[2025-01-16] MEDS: PIPERACILLIN-TAZOB 3.375GM 100 ML IV ONE (19:59)
[2025-01-16 20:19] LABS: Urine Protein, UAD TRACE (Negative)
[2025-01-16 20:37] VITALS: BP 117/69; PULSE 67; RESP 16; RESP 18; TEMP 97.2; O2SAT 97
[2025-01-16] MEDS: INSULIN LANTUS (GLARGINE) 1 /0.01ml (100units/ml) SC SCH (21:00)
[2025-01-16] MEDS: DOCUSATE SOD 100 MG CAP PO SCH (22:00)
[2025-01-16] MEDS ORDERED: INSULIN LANTUS (GLARGINE) 1 /0.01ml (100units/ml) SC SCH (22:00)
[2025-01-16] MEDS: VANCOMYCIN 1GM/250ML KIT 250 ML IV ONE (22:19)
[2025-01-16] MEDS: InsuLIN REG 1unit/0.01ml Soln (100units/ml) SC SCH (22:21)
[2025-01-17] VITALS (11 sets, daily range): BP systolic 151–161; BP diastolic 47–84; PULSE 61–79; RESP 14–20; TEMP 97.5–98.6; O2SAT 94–98
[2025-01-17] MEDS: PIPERACILLIN-TAZOB 3.375GM 100 ML IV SCH (01:07)
[2025-01-17] MEDS: ACETAMINOPHEN 325 MG TAB PO PRN (02:48)
[2025-01-17 06:36] LABS: Hematocrit 31.2 % (36.0-46.0); Hemoglobin 10.6 g/dL (12.2-16.2); Mean Corpuscular Hemoglobin 30.8 pg (28.0-32.0); Mean Corpuscular Volume 90.4 fL (80.0-100.0); Nucleated Red Blood Cells % 0.0 %
[2025-01-17 07:06] LABS: Alanine Aminotransferase 22 U/L (7-40); Alkaline Phosphatase 68 U/L (46-116); Anion Gap 13 (5-15); BUN/Creatinine Ratio 27.2 (10.0-20.0); Calcium 8.8 mg/dL (8.7-10.4); Carbon Dioxide 21 mmol/L (20-31); Potassium 4.4 mmol/L (3.5-5.1); Sodium 142 mmol/L (136-145); Total Protein 6.9 g/dL (5.7-8.2)
[2025-01-17 07:08] LABS: Albumin 3.7 g/dL (3.2-4.8); Bilirubin, Total 0.3 mg/dL (0.2-1.0)
[2025-01-17 07:09] LABS: Blood Urea Nitrogen 31 mg/dL (9-23); Chloride 108 mmol/L (98-107); Glucose 116 mg/dL (74-106)
--- NOTE | 2025-01-17 08:19 | DVH ---
Bilateral Lower Extremity Arterial Duplex Clinical History: PAD Comparison: None Technique: Duplex Doppler evaluation including color Doppler and spectral/pulsed waveform analysis of the lower extremity arteries was performed. Findings: RIGHT: Peak systolic velocities are as follows: HEEL SPRAYER FIRST 176 cm/s Deep femoral 242 cm/s SFA proximal 150 cm/s SFA mid-portion 136 cm/s SFA distal 112 cm/s Popliteal 77 cm/s Posterior tibial 43 cm/s Anterior tibial 48 cm/s Peroneal N/V cm/s Dorsalis pedis 116 cm/s The waveforms are monophasic with diastolic flow. LEFT: Peak systolic velocities are as follows: HEEL SPRAYER FIRST 165 cm/s Deep femoral 152 cm/s SFA proximal 107 cm/s SFA mid-portion 124 cm/s SFA distal 125 cm/s Popliteal 173 cm/s Posterior tibial 131 cm/s Anterior tibial 108 cm/s Peroneal N/V cm/s Dorsalis pedis 143 cm/s The waveforms are monophasic with diastolic flow. IMPRESSION: 20-49% stenosis of bilateral common femoral arteries, right proximal superficial femoral artery, left popliteal artery based on peak systolic velocity criteria. Bilateral Abnormal monophasic arterial waveforms are present suggesting underlying peripheral arterial disease. REFERENCE VALUES, [facility] ([facility]) vascular Imaging Lab Criteria: Peak systolic velocity ranges (in cm/sec) are as follows: <150 cm/s - <20 % stenosis 150-200 cm/s - 20-49% stenosis 200-300 cm/s - 50-75% stenosis >300 cm/s -> 75% stenosis
[2025-01-17] MEDS ORDERED: LIDOCAINE 1% INJ PF 5ML AMP ONE (08:37)
[2025-01-17] MEDS ORDERED: GLYCOPYRROLATE 0.2 MG/ML 1ML VIAL ONE (08:37)
[2025-01-17] MEDS ORDERED: PROPOFOL 10 MG/ML 20 ML IV ONE (08:37)
[2025-01-17] MEDS ORDERED: ONDANSETRON HCL 4 MG/2 ML VIAL ONE (08:37)
--- NOTE | 2025-01-17 09:04 | DVHCONRES ---
Date Seen: Jan 17, 2025 Reason for Consultation Left foot wound History of Present Illness Kelly Mcarthur is a 74 year old female patient who presents to the ED with chief complaint of nausea, non bloody vomiting with c;ear emesis, fever, headaches and non healing left foot wound, which started 1 week before her ad mission. PAtient went to seek assistance at another hospital 1 week ago due to these symptoms, was hospitalized, but did not improve her symptoms after discharge. Denies any other associated symptoms. Past Medical History See H&P Past Surgical History See H&P Family History: Cancer G8 MOTHER G8 FATHER FH: heart attack G8 FATHER Family history: Diabetes mellitus G8 MOTHER G8 FATHER Allergies: Coded Allergies: Ceftriaxone (Verified Allergy, Unknown, 09/25/15) Morphine (Unverified Allergy, Unknown, 12/08/16) Shrimp Flavor Agent (non-screening) (Verified Allergy, Unknown, 12/08/16) Home Meds Reported Medications Triamterene & Hydrochlorothiaz (Maxzide) 1 Tab Tab, 1 TAB PO DAILY, #30 TAB 5 Refills 12/08/16 Ascorbic Acid (VITAMIN C TABLET) 500 Mg Tb, 1 TAB PO DAILY, #30 TAB 3 Refills 12/08/16 Ranitidine Hcl (Ranitidine Hcl) 300 Mg Cap, 1 CAP PO DAILY, #30 CAP 3 Refills 12/08/16 Levofloxacin Hemihydrate (LEVOFLOXACIN) 750 Mg Tab, 750 MG PO DAILY, MG 12/08/16 Sucralfate (Sucralfate) 1 Gm Tab, 1 GM PO DAILY, GM 12/08/16 Lisinopril (Lisinopril) 10 Mg Tab, 10 MG PO DAILY, TAB 10/26/15 Aspirin (Aspirin) 325 Mg Tab, 1 TAB PO DAILY, #30 TAB 5 Refills 10/26/15 Carvedilol (Coreg) 3.125 Mg Tab, 1 TAB PO BID, #180 TAB 1 Refill 10/26/15 Docusate Sodium (COLACE CAPSULE) 100 Mg Cp, 100 MG PO HS, CP 10/26/15 Omeprazole (PRILOSEC) 20 Mg Cap, 40 MG PO DAILY, CAP 10/26/15 Clopidogrel Bisulfate (Plavix) 75 Mg Tab, 1 TAB PO DAILY, #90 TAB 1 Refill 10/26/15 Sitagliptin Phosphate (Januvia) 100 Mg Tab, 1 TAB PO DAILY, #30 TAB 5 Refills 10/26/15 Ranitidine Hcl (Ranitidine Hcl) 300 Mg Tab, 1 TAB PO QPM, #90 TAB 3 Refills 10/26/15 Metformin Hydrochloride (Metformin Hcl) 1,000 Mg Tab, 1000 MG PO BID 04/15/12 Insulin Glulisine (Apidra Solostar) Solostar Inj, 5 SC TIDWM 04/15/12 Insulin Glargine (Lantus) 100 Units/Ml Vial, 40 UNITS SC BID 04/15/12 Current Medications Current Medications Medications (Trade) Dose Ordered Sig/Bree Route PRN Reason Start Time Stop Time Status Last Admin Vancomycin HCl 0 ml @ 0 mls/hr PER PHARMACY IV 01/16/25 13:30 01/16/25 17:47 DC Acetaminophen (Tylenol Tablet) 325 mg Q4HP PRN PO MILD PAIN (1-3 PAIN SCALE) 01/16/25 16:45 01/17/25 02:48 Ondansetron HCl (Zofran) 4 mg Q4HP PRN IV NAUSEA / VOMITING 01/16/25 16:45 Morphine Sulfate 2 mg Q4HPRN PRN IV SEVERE PAIN (7-10 PAIN SCALE) 01/16/25 16:45 Hold Enoxaparin Sodium (Lovenox) 40 mg DAILY SC 01/17/25 10:00 Vancomycin HCl 0 ml @ 0 mls/hr PER PHARMACY IV 01/16/25 16:45 Piperacillin Sod/ Tazobactam Sod 100 ml @ 25 mls/hr Q8H IV 01/17/25 02:00 01/17/25 01:07 Sodium Chloride 1,000 ml @ 75 mls/hr [id number] IV 01/16/25 16:45 Ascorbic Acid (Vitamin C Tablet) 500 mg DAILY PO 01/17/25 10:00 Carvedilol (Coreg Tablet) 3.125 mg BID PO 01/16/25 22:00 Hold Clopidogrel Bisulfate (Plavix) 75 mg DAILY PO 01/17/25 10:00 Future Hold Docusate Sodium (Colace Capsule) 100 mg HS PO 01/16/25 22:00 Insulin Glargine (Lantus) 40 units BID SC 01/16/25 22:00 01/16/25 19:54 DC Sucralfate (Carafate Tab) 1 gm DAILY PO 01/17/25 10:00 Future Hold Aspirin 325 mg DAILY PO 01/17/25 10:00 01/17/25 02:37 DC Lisinopril (Zestril Tablet) 10 mg DAILY PO 01/17/25 10:00 Future Hold Patient Own Medication 40 mg DAILY PO 01/17/25 10:00 Future Hold Diagnostic Test (Pha) (Accu-Chek Comfort Curve T) 1 strip ACHS 01/16/25 17:00 01/16/25 20:51 DC 01/16/25 17:00 Insulin Human Regular (InsuLIN R) ACHS SC 01/16/25 17:00 01/16/25 19:48 DC Dextrose 50 ml UD PRN IV Blood Sugar LESS THAN 60 01/16/25 16:45 Cancel Diagnostic Test (Pha) (Accu-Chek Comfort Curve T) 1 strip IQ4HR 01/16/25 20:00 01/17/25 04:30 Insulin Human Regular (InsuLIN R) IQ4HR SC 01/16/25 20:00 01/17/25 01:08 Dextrose 50 ml UD PRN IV Blood Sugar LESS THAN 60 01/16/25 19:45 Insulin Glargine (Lantus) 40 units BID SC 01/16/25 21:00 01/16/25 22:25 Aspirin (Ecotrin Enteric Coated Tablet) 81 mg DAILY PO 01/17/25 10:00 Vital Signs Vital Signs Date Time Temp Pulse Resp B/P (MAP) Pulse Ox O2 Delivery O2 Flow Rate FiO2 01/17/25 05:00 97.6 79 14 151/47 (81) 95 97.6 01/16/25 20:37 Room Air* 0 21 Physical Exam Dermatological: Skin is dry with mild erythema and some maceration around the wound site No gross deformities noted Mild non-pitting edema present bilaterally Foot plantar foot wound with cellulitis and purulent drainage Vascular: Dorsalis pedis and posterior tibial pulses are 1+ bilaterally Capillary refill is under 2 seconds Skin temperature is warm bilaterally Neurologic: Protective sensation is absent on the plantar forefoot bilaterally Monofilament testing reveals decreased sensation in multiple plantar sites Musculoskeletal: Range of motion at the ankle and MTP joints is within normal limits. Strength is 5/5 in all tested muscle groups. Gait is antalgic due to offloading of the affected limb. Labs/Diagnostic Data Labs Test 01/17/25 05:43 01/17/25 05:14 01/16/25 20:07 01/16/25 15:08 Range/Units White Blood Count 8.3 4.4-10.8 10^3/uL Red Blood Count 3.45 L 4.0-5.20 10^6/uL Hemoglobin 10.6 L 12.2-16.2 g/dL Hematocrit 31.2 #L 36.0-46.0 % Mean Corpuscular Volume 90.4 # 80.0-100.0 fL Mean Corpuscular Hemoglobin 30.8 28.0-32.0 pg Mean Corpuscular Hemoglobin Concent 34.1 32.0-36.0 g/dL Red Cell Distribution Width 13.8 11.8-14.3 % Platelet Count 306 140-450 10^3/uL Mean Platelet Volume 7.6 6.9-10.8 fL Neutrophils (%) (Auto) 72.3 37.0-80.0 % Lymphocytes (%) (Auto) 17.6 10.0-50.0 % Monocytes (%) (Auto) 7.4 0.0-12.0 % Eosinophils (%) (Auto) 2.3 0.0-7.0 % Basophils (%) (Auto) 0.4 0.0-2.0 % Neutrophils # (Auto) 6.0 1.6-8.6 10 ^3/uL Lymphocytes # (Auto) 1.5 0.4-5.4 10 ^3/uL Monocytes # (Auto) 0.6 0-1.3 10 ^3/uL Eosinophils # (Auto) 0.2 0-0.8 10 ^3/uL Basophils # (Auto) 0 0-0.2 10 ^3/uL Nucleated Red Blood Cells 0.0 % Sodium Level 142 136-145 mmol/L Potassium Level 4.4 3.5-5.1 mmol/L Chloride Level 108 H 98-107 mmol/L Carbon Dioxide Level 21 20-31 mmol/L Anion Gap 13 5-15 Blood Urea Nitrogen 31 H 9-23 mg/dL Creatinine 1.14 H 0.550-1.02 mg/dL Glomerular Filtration Rate Calc 50 >90 mL/min BUN/Creatinine Ratio 27.2 H 10.0-20.0 Serum Glucose 116 H 74-106 mg/dL Calcium Level 8.8 8.7-10.4 mg/dL Total Bilirubin 0.3 0.2-1.0 mg/dL Aspartate Amino Transferase (AST) 25 13-40 U/L Alanine Aminotransferase (ALT) 22 7-40 U/L Alkaline Phosphatase 68 46-116 U/L Total Protein 6.9 5.7-8.2 g/dL Albumin 3.7 3.2-4.8 g/dL Random Vancomycin Level 12.8 H 5-10 ug/mL POC Glucose 120 H 70-106 mg/dl Urine Color Light-yellow Yellow Urine Clarity Clear Clear Urine pH 6.0 5.0-9.0 Urine Specific [place] 1.018 1.001-1.035 Urine Protein Trace H Negative Urine Ketones Negative Negative Urine Blood 3+ H Negative /uL Urine Nitrite 1+ H Negative Urine Bilirubin Negative Negative Urine Urobilinogen Normal Negative mg/dL Urine Leukocyte Esterase 2+ Negative /uL Urine RBC 47 0 - 4 /hpf Urine Microscopic WBC 37 H 0-5 /HPF Urine Squamous Epithelial Cells Few <5 /hpf Urine Bacteria Few H None Seen /hpf Urine Glucose 4+ H Normal mg/dL Erythrocyte Sedimentation Rate 46 H 0-20 mm/hr Test 01/16/25 13:59 01/16/25 13:50 01/16/25 13:18 Range/Units Thyroid Stimulating Hormone (TSH) 1.46 0.55-4.78 uIU/mL Lactic Acid Level 0.8 0.4-2.0 mmol/L Prothrombin Time 10.2 9.3-11.8 sec Prothrombin Time INR 0.96 0.9-1.15 Activated Partial Thromboplast Time 25.1 24.5-34.5 SEC Hemoglobin A1c 10.2 H <5.7 % A1C Phosphorus Level 3.9 2.4-5.1 mg/dL Magnesium Level 2.0 1.6-2.6 mg/dL C-Reactive Protein High Sensitivity 1.66 H <1.0 mg/dL Triglycerides Level 215 H < 150 mg/dL Cholesterol Level 134 < 200 mg/dL LDL Cholesterol 73 < 100 mg/dL HDL Cholesterol 32 L 40-59 mg/dL Vitamin B12 Level 680 211-911 pg/mL Vitamin D 25-Hydroxy 43.8 30.0-100 ng/mL Problems(with codes): (1) Partial bowel obstruction (2) Acute abdominal pain (3) NSTEMI (non-ST elevated myocardial infarction) (4) Acute severe exacerbation of asthma (5) Hematemesis (6) Moderate malnutrition (7) Dehydration (8) Chronic anemia (9) Essential hypertension (10) Osteomyelitis of great toe of left foot (11) Acute bronchitis (12) Acute gastritis (13) Chronic back pain (14) Diabetes uncontrolled (15) Diabetic ulcer of left foot associated with diabetes mellitus due to underlying condition (16) Cellulitis of left foot (17) Hyperlipidemia (18) Diabetes mellitus (19) SWELLING OF LIMB (20) SEPTICEMIA NOS Plan/Recommendation ASSESSMENT: Patient is a 74 year old seen on the floor for a worsening ulcer PLAN: - The patients chart was reviewed, clinical findings were discussed with the patient, the etiologies of the conditions were discussed in detail, and a treatment plan was agreed to at this time, with both oral and written instructions provided. - reviewed advanced imaging - discussed plan is to perform an incision and drainage - patient has been NPO since midnight - take him to the OR today - we will get cultures in the OR - can weightbear as tolerated in postoperative shoe All questions were answered and concerns addressed to the patient's satisfaction. The patient was given the phone number to the clinic and was told how to make contact with the clinic should any concerns or questions arise. Patient understands that if any questions or concerns arise prior to the next appointment, we should be contacted immediately. FOLLOW-UP: Continue to follow while inpatient Plan discussed with: Patient Visit Coding Podiatry Date of Service if different f: Jan 17, 2025 Billing Provider: NINA WALTON DPM Podiatry Common Visit Codes: CONSULT ONLY Podiatry Consult Codes: 84205-PL/OBS [id number] NEW/EST HI 80 NINA WALTON DPM Jan 17, 2025 09:04
[2025-01-17] MEDS ORDERED: KETAMINE 50mg/ML 1ml syringe ONE (09:54)
[2025-01-17] MEDS ORDERED: SUCRALFATE 1 GM TAB PO SCH (10:00)
[2025-01-17] MEDS ORDERED: CLOPIDOGREL BISULFATE 75 MG TAB PO SCH (10:00)
[2025-01-17] MEDS: BUPIVACAINE 0.5% P/F INJ 10 ML VIAL ONE (10:04)
--- NOTE | 2025-01-17 10:19 | DVHOP2 ---
Operative Report - 2 Report Details Date: 01/17/25 Preop Diagnosis: 1. Left foot osteomyelitis 2. Left foot abscess 3. Left foot cellulitis 4. Left foot diabetic ulcer Postop Diagnosis: Same as preop Surgeon: Nina Walton MD Anesthesiologist: See anesthesia Anesthesia: Mac Consent: The patient was informed of the risks and benefits of the procedure. These include but are not limited to complications of anesthesia, postoperative infection, incomplete relief of symptoms, recurrence of symptoms, damage to blood vessels, nerves and tendons, deep venous thrombosis, pulmonary embolism and possible need for repeat surgery in the future. Complications: None Estimated Blood Loss: Minimal Fluids: See anesthesia Findings: Consistent with diagnosis Indications for Surgery: Worsening foot wound Name of Procedure Performed 1. Left foot I&D to bone () 2. Left foot bone biopsy () Procedure Details Procedure Details: PRE-PROCEDURE INFORMATION: In the pre-op holding area, the extremity to be operated on was clearly marked and the patient verified correct laterality of the marking. The patient was transferred to the OR table and placed in a supine position. A timeout was performed in which identification of the correct patient, procedure, location, and materials was done. The left foot and leg were prepped and draped in normal sterile fashion. DESCRIPTION OF PROCEDURE: Attention was directed to the left where area of fluctuance was noted. An incision was made over this area and was deepened through blunt dissection. The incision was deepened to the level of abscess and bone. Care was taken to the dissection to avoid any neurovascular and tendinous structures. The incision was deepened to the bone, and the abscess appeared to be purulent fluid consistent with pus. The cortices of the bone was then removed with rongeur an all necrotic tissue. After the abscess was drained, the area was irrigated with 3 L normal saline using cysto tubing. Deep cultures were then obtained from the wound. The area was then inspected and any areas of tracking, especially along the tendons were also drained. A bone biopsy was then taken of the 1st metatarsal which was deepened to the muscle belly and tendons. The bone was then sent to pathology to determine the extent of osteomyelitis. The wound was packed with Betadine-soaked gauze and we will need to be closed at a later date. POSTOPERATIVE INFORMATION: The patient tolerated the above noted procedure and anesthesia well and was transferred to the PACU with vital signs stable, and vascular status intact with capillary refill intact to all digits. Bone biopsy was taken deep cultures were taken. Patient will return to the OR on Wednesday for delayed closure. Patient will need 6 weeks IV antibiotics. Specimen: First metatarsal Condition Good Disposition Still a Patient Visit Coding Podiatry Date of Service if different f: Jan 17, 2025 Billing Provider: NINA WALTON DPM Podiatry Common Visit Codes: PROCEDURE ONLY NINA WALTON DPM Jan 17, 2025 10:19
[2025-01-17] MEDS ORDERED: HYDROmorphone HCL 2 MG/ML VL/or syr IV PRN (10:30)
[2025-01-17] MEDS ORDERED: fentaNYL CITRATE 100 MCG/2 ML VL IV PRN (10:30)
[2025-01-17] MEDS ORDERED: FLUMAZENIL 0.1 MG/ML INJ 10ML MDV IV PRN (10:30)
[2025-01-17] MEDS ORDERED: NALOXONE HCL 0.4 MG/ML VIAL IV PRN (10:30)
[2025-01-17] MEDS ORDERED: hydrALAZINE HCL 20 MG/ML VL IV PRN (10:30)
[2025-01-17] MEDS ORDERED: ONDANSETRON HCL 4 MG/2 ML VIAL IV PRN (10:30)
[2025-01-17] MEDS: VANCOMYCIN 500mg/100mL 100 ML IV SCH (11:33)
[2025-01-17] MEDS: ASPirin-EC 81 mg tab PO SCH (11:34)
[2025-01-17] MEDS: ENOXAPARIN SOD 40 MG/0.4 ML SYRINGE SC SCH (11:34)
[2025-01-17] MEDS: ASCORBIC ACID 500 MG TAB PO SCH (11:34)
[2025-01-17] MEDS: HYDROcodone-ACET 5/325MG TAB PO PRN (12:37)
--- NOTE | 2025-01-17 13:44 | ECG ---
[facility] Test Date: 2025-01-17 Test Time: 09:39:46 Pat Name: KP COMBS Department: Room: 0279 A Gender: F Patent Litigation Associate: MELVIN : 1950 Requested By: CHARLI SHUKLA Order Number: [id number] Reading MD: Oswaldo Cowan Measurements Intervals [place] Rate: 69 P: 47 UT: 238 QRS: 87 QRSD: 86 T: 61 QT: 414 QTc: 443 Interpretive Statements Sinus rhythm with 1st degree AV block Septal infarct , age undetermined Electronically Signed On 01-17-2025 17:38:16 PST by Oswaldo Cowan Please click the below link to view image of tracing.
--- NOTE | 2025-01-17 15:55 | DVHPNRES ---
Progress Note Date Seen: Jan 17, 2025 Resident Creating Document: MARK WOOTEN Medical Necessity Reason Pt with a Central, PICC or Fol: No Subjective Review of Systems Patient is a 74-year-old Portuguese-speaking female with past medical history of HTN, HLD, DM, diabetic foot, arthritis, CAD, PCI, asthma and CKD, presented to [facility] ED with complaint of nausea, non-bloody vomiting with clear emesis, fever, headaches, and a non-healing left foot wound that started one week prior to admission. The patient sought care at another hospital one week ago for these symptoms and was hospitalized but did not experience improvement after discharge. She denies any other associated symptoms. On evaluation today, patient is afebrile, blood pressure was 151/47 mmHg. Labs show normocytic anemia, creatinine 1.14 and serum glucose 116. Foot CT shows osteomyelitis in the 1st metatarsal bone, adjacent to soft tissue inflammatory changes which may reflect cellulitis and hammertoe deformities. Past medical history: Hypertension, dyslipidemia, diabetes, CAD s/p CABG in 2015 and PCI (last one 2023), asthma, brain bleed in 2015, diabetic foot s/p right toes amputation, arthritis and CKD Surgical history: CABG 2015, PCI 2023, multiple staged right toes amputation last one 9 years ago, right ankle repair with plates placed. Family history: mother and father had heart disease Social history: Lives in [place] alone, has cargiver that goes from 4pm until 4 am (NOK son, Emre Rhodes). Denies current tobacco, alcohol and other drug abuse. Allergies: Ceftriaxone, morphine, shrimp Home medication: Does not recall Patient seen and examined at bedside. Patient is alert and oriented to time, place person and responding to all questions. Eyes: No Pain, No Vision change, No Conjunctivae inflammation, No Eyelid inflammation, No Other, No Redness ENT: No Ear pain, No Ear discharge, No Nose pain, No Nose discharge, No Nose congestion, No Mouth pain, No Mouth swelling, No Throat pain, No Throat swelling, No Other Cardiovascular: No Chest Pain, No Palpitations, No Orthopnea, No Paroxysmal No Dyspnea, No Edema, No Lt Headedness, No Other Respiratory: No Cough, No Dry, No Shortness of breath, No SOB with exertion, No Wheezing, No Hemoptysis, No Pleuritic Pain, No Sputum, No Other Gastrointestinal: Nausea, Vomiting, No Abdominal Pain, No Diarrhea, No Constipation, No Melena, No Hematochezia, No Other Genitourinary: No Dysuria, No Frequency, No Incontinence, No Hematuria, No Retention, No Other Musculoskeletal: No other, No neck pain, No shoulder pain, No arm pain, No back pain, No hand pain, leg pain, foot pain Skin: No Rash, No Lesions, No Jaundice, No Bruising, No Other Objective vital signs Vital Sign Date Time Temp Pulse Resp B/P (MAP) Pulse Ox O2 Delivery O2 Flow Rate FiO2 01/17/25 12:50 98.1 70 18 158/84 (108) 96 98.1 01/17/25 10:15 Room Air 0 98 Total Intake and Output 01/16/25 01/16/25 01/17/25 15:00 23:00 07:00 Intake Total 350 ml Output Total 0 ml Balance 350 ml medications Current Medications Medications Dose Ordered Sig/Bree Route Start Time Stop Time Status Last Admin Dose Admin Acetaminophen 325 mg Q4HP PRN PO 01/16/25 16:45 01/17/25 02:48 325 MG Ondansetron HCl 4 mg Q4HP PRN IV 01/16/25 16:45 Enoxaparin Sodium 40 mg DAILY SC 01/17/25 10:00 01/17/25 11:34 40 MG Vancomycin HCl 0 ml @ 0 mls/hr PER PHARMACY IV 01/16/25 16:45 Piperacillin Sod/ Tazobactam Sod 100 ml @ 25 mls/hr Q8H IV 01/17/25 02:00 01/17/25 13:41 25 MLS/HR Sodium Chloride 1,000 ml @ 75 mls/hr [id number] IV 01/16/25 16:45 Ascorbic Acid 500 mg DAILY PO 01/17/25 10:00 01/17/25 11:34 500 MG Carvedilol 3.125 mg BID PO 01/16/25 22:00 Hold Clopidogrel Bisulfate 75 mg DAILY PO 01/17/25 10:00 Hold Docusate Sodium 100 mg HS PO 01/16/25 22:00 Sucralfate 1 gm DAILY PO 01/17/25 10:00 Hold Lisinopril 10 mg DAILY PO 01/17/25 10:00 Hold Patient Own Medication 40 mg DAILY PO 01/17/25 10:00 Hold Dextrose 50 ml UD PRN IV 01/16/25 16:45 Cancel Diagnostic Test (Pha) 1 strip IQ4HR 01/16/25 20:00 01/17/25 11:34 1 STRIP Insulin Human Regular IQ4HR SC 01/16/25 20:00 01/17/25 01:08 15 UNITS Dextrose 50 ml UD PRN IV 01/16/25 19:45 Insulin Glargine 40 units BID SC 01/16/25 21:00 01/16/25 22:25 40 UNITS Aspirin 81 mg DAILY PO 01/17/25 10:00 01/17/25 11:34 81 MG Vancomycin HCl 100 ml @ 200 mls/hr Q12H IV 01/17/25 10:00 01/17/25 11:33 200 MLS/HR Acetaminophen/ Hydrocodone Bitart 1 tab Q8HPRN PRN PO 01/17/25 11:45 01/17/25 12:37 1 TAB Examination General Appearance: Cooperative. Well developed. Well nourished. NAD Head Exam: Normal inspection Neck Exam: Normal inspection. Non-tender. Normal alignment Pulmonary/Respiratory: Chest non-tender. Clear bilateral breath sounds, no crackles, no wheezing. Cardiovascular/Chest: Regular rate and rhythm. No murmurs. No JVD. Peripheral Pulses: 2+ Radial (R). 2+ Radial (L). 2+ Pedal (R). 2+ Pedal (L) Abdominal Exam: Normal bowel sounds. Soft. normal abdomen, no visible veins, Nontender. No hepatospenomegaly. No masses Ankle Exam: Negative ankle edema Lower extremities: Negative lower extremity edema Neuro/Mental Status: A&O x4. Coherent. Thoughts/Psych: Normal thought pattern. Appropriate mood and affect. Good judgement and insight MSK/skin exam: Mobilizes 4 limbs. Skin is dry and warm. Right toes amputaed, no purulent discharge nor erythema. Left foot has erythema on first metatarsal region. Diminished pedial and posterior tibial pulses. laboratory and microbiology Laboratory Tests 01/17/25 05:43 Test 01/17/25 05:43 Range/Units Serum Glucose 116 H 74-106 mg/dL Microbiology Date/Time Source Procedure Growth Status 01/16/25 20:07 Voided Urine Urine Culture - Preliminary Resulted 01/16/25 13:59 Blood Blood Culture - Preliminary NO GROWTH AFTER 24 HOURS OF INCUBATION. Resulted Labs and/or images reviewed: Labs reviewed by me, Image(s) reviewed by me Problem List/Assessment/Plan Problem List/Assessment/Plan Left foot osteomyelitis in the 1st metatarsal bone Left foot abscess in the 1st metatarsal bone Left foot cellulitis in the 1st metatarsal bone Left foot diabetic ulcer in the 1st metatarsal bone Type 2 diabetes mellitus with hyperglycemia, uncontrolled Hammertoe deformities Status post incision and drainage to bone and bone biopsy Foot CT: Findings which may represent osteomyelitis in the 1st metatarsal bone, adjacent to soft tissue inflammatory changes which may reflect cellulitis. Hammertoe deformities. Bilateral Lower Extremity Arterial Duplex: 20-49% stenosis of bilateral common femoral arteries, right proximal superficial femoral artery, left popliteal artery based on peak systolic velocity criteria. Pain management with Tylenol and [place] Vancomycin per pharmacy Zosyn IV q8h IV NS 75 MLS/HR Zofran 4 MG Iv q4h Colace 100 MG PO hs Vitamin C 500 MG PO daily Accu-check Insulin Lantus Moderate Insulin SS Dextrose 50% dyringe Cretinine Wound consult Podiatry consult Lovenox 40 MG SC daily History of hemorrhagic stroke Aspirin 81 mg p.o. 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 Valdez Plan discussed with: Patient Date of Service: Jan 17, 2025 Billing Provider: KALEIGH VALDEZ MD Common Visit Codes: [id number] INP/OBS CARE(HIGH) MARK WOOTEN RESIDENT Jan 17, 2025 15:55 FREEDOM SINGH RESIDENT Jan 19, 2025 16:29
--- NOTE | 2025-01-17 19:31 | DVHSR ---
APPROVED REPORT EXAM: Two-dimensional and M-mode echocardiogram with Doppler and color Doppler. Blood Pressure: 151/47 mmHg INDICATION Sepsis RISK FACTORS Height: 5'2, Weight: 180 DIMENSIONS LVDd 5.1 (3.8-5.7cm) LA (2D) 4.2 (1.9-4.0cm) Aortic Root 2.6 (2.0-3.7cm) LVDs 3.3 (2.5-4.0cm) LA (MM) (1.9-4.0cm) Aortic Cusp Exc 0.7 (1.5-2.0cm) EF (%) 63.0 (55-70%) Rt. Atrium 4.1 (1.9-4.0cm) Asc. Aorta 3.4 cm IVSd 0.8 (0.7-1.1cm) RV (D) (1.8-2.4cm) PWd 1.0 (0.7-1.1cm) Mitral Valve Mitral Mitral Stenosis E wave 0.89m/s MV Mean GR. mmHg A wave 0.89m/s MV Peak GR. mmHg E/A ratio 1.0 2D MVA cm2 DECEL Time 113ms PRESS 1/2 Time ms Aortic Valve Aortic Valve Aortic Stenosis V1 1.01m/s AO Mean GR. 5mmHg V2 1.45m/s AO Peak GR. 8mmHg LVOT Diameter 1.9 (1.8-2.4cm) Doppler TRISTA 1.97cm2 Other Information Technically limited study due to body habitus and patient position. Conclusion Sinus rhythm. Biatrial enlargement. Mild aortic root enlargement. Mild aortic sclerosis. Left ventricular function is borderline at 45 to 50% with normal RV function. Doppler is unremarkable. No pericardial effusion masses or vegetations.
[2025-01-18] VITALS (8 sets, daily range): BP systolic 135–163; BP diastolic 63–73; PULSE 58–68; RESP 16–19; TEMP 97.9–98.4; O2SAT 94–99
[2025-01-18] MEDS: VANCOMYCIN 500mg/100mL 100 ML IV SCH (01:18)
[2025-01-18] MEDS ORDERED: LISINOPRIL 5 MG TAB PO ONE (02:30)
[2025-01-18] MEDS: LISINOPRIL 5 MG TAB PO ONE (03:25)
[2025-01-18 06:15] LABS: Hematocrit 32.4 % (36.0-46.0); Hemoglobin 11.0 g/dL (12.2-16.2); Mean Corpuscular Hemoglobin 31.0 pg (28.0-32.0); Mean Corpuscular Volume 91.5 fL (80.0-100.0); Nucleated Red Blood Cells % 0.1 %
[2025-01-18 06:33] LABS: Alanine Aminotransferase 21 U/L (7-40); Albumin 3.8 g/dL (3.2-4.8); Alkaline Phosphatase 73 U/L (46-116); Anion Gap 11 (5-15); BUN/Creatinine Ratio 20.9 (10.0-20.0); Calcium 9.2 mg/dL (8.7-10.4); Chloride 104 mmol/L (98-107); Potassium 4.5 mmol/L (3.5-5.1); Total Protein 7.2 g/dL (5.7-8.2)
[2025-01-18 06:34] LABS: Bilirubin, Total 0.4 mg/dL (0.2-1.0)
[2025-01-18 06:35] LABS: Blood Urea Nitrogen 27 mg/dL (9-23); Carbon Dioxide 20 mmol/L (20-31); Glucose 275 mg/dL (74-106); Sodium 135 mmol/L (136-145)
[2025-01-18] MEDS: LISINOPRIL 5 MG TAB PO SCH (10:58)
--- NOTE | 2025-01-18 16:41 | DVHPNRES ---
Progress Note Date Seen: Jan 18, 2025 Resident Creating Document: MARK WOOTEN Medical Necessity Reason Pt with a Central, PICC or Fol: No Subjective Review of Systems Patient is a 74-year-old Indonesian-speaking female with past medical history of HTN, HLD, DM, diabetic foot, arthritis, CAD, PCI, asthma and CKD, presented to [facility] ED with complaint of nausea, non-bloody vomiting with clear emesis, fever, headaches, and a non-healing left foot wound that started one week prior to admission. The patient sought care at another hospital one week ago for these symptoms and was hospitalized but did not experience improvement after discharge. She denies any other associated symptoms. On evaluation today, patient is afebrile, blood pressure was 151/47 mmHg. Labs show normocytic anemia, creatinine 1.14 and serum glucose 116. Foot CT shows osteomyelitis in the 1st metatarsal bone, adjacent to soft tissue inflammatory changes which may reflect cellulitis and hammertoe deformities. On 01/18/25, Patient was seen and examined at bedside. Overnight events were reviewed. The patient reports improvement in her symptoms after procedure. A PICC line is recommended for long-term access. The consult has been initiated for PICC line placement Past medical history: Hypertension, dyslipidemia, diabetes, CAD s/p CABG in 2015 and PCI (last one 2023), asthma, brain bleed in 2015, diabetic foot s/p right toes amputation, arthritis and CKD Surgical history: CABG 2015, PCI 2023, multiple staged right toes amputation last one 9 years ago, right ankle repair with plates placed. Family history: mother and father had heart disease Social history: Lives in [place] alone, has cargiver that goes from 4pm until 4 am (NOK son, Emre Rhodes). Denies current tobacco, alcohol and other drug abuse. Allergies: Ceftriaxone, morphine, shrimp Home medication: Does not recall Patient seen and examined at bedside. Patient is alert and oriented to time, place person and responding to all questions. Eyes: No Pain, No Vision change, No Conjunctivae inflammation, No Eyelid inflammation, No Other, No Redness ENT: No Ear pain, No Ear discharge, No Nose pain, No Nose discharge, No Nose congestion, No Mouth pain, No Mouth swelling, No Throat pain, No Throat swelling, No Other Cardiovascular: No Chest Pain, No Palpitations, No Orthopnea, No Paroxysmal No Dyspnea, No Edema, No Lt Headedness, No Other Respiratory: No Cough, No Dry, No Shortness of breath, No SOB with exertion, No Wheezing, No Hemoptysis, No Pleuritic Pain, No Sputum, No Other Gastrointestinal: Nausea, Vomiting, No Abdominal Pain, No Diarrhea, No Constipation, No Melena, No Hematochezia, No Other Genitourinary: No Dysuria, No Frequency, No Incontinence, No Hematuria, No Retention, No Other Musculoskeletal: No other, No neck pain, No shoulder pain, No arm pain, No back pain, No hand pain, leg pain, foot pain Skin: No Rash, No Lesions, No Jaundice, No Bruising, No Other Objective vital signs Vital Sign Date Time Temp Pulse Resp B/P (MAP) Pulse Ox O2 Delivery O2 Flow Rate FiO2 01/18/25 13:00 98.4 65 17 154/70 (98) 97 98.4 01/18/25 07:55 Room Air* 0 21 Total Intake and Output 01/17/25 01/17/25 01/18/25 15:00 23:00 07:00 Intake Total 265 ml 600 ml 1000 ml Balance 265 ml 600 ml 1000 ml medications Current Medications Medications Dose Ordered Sig/Bree Route Start Time Stop Time Status Last Admin Dose Admin Acetaminophen 325 mg Q4HP PRN PO 01/16/25 16:45 01/18/25 01:27 325 MG Ondansetron HCl 4 mg Q4HP PRN IV 01/16/25 16:45 Enoxaparin Sodium 40 mg DAILY SC 01/17/25 10:00 01/18/25 10:58 40 MG Vancomycin HCl 0 ml @ 0 mls/hr PER PHARMACY IV 01/16/25 16:45 Piperacillin Sod/ Tazobactam Sod 100 ml @ 25 mls/hr Q8H IV 01/17/25 02:00 01/18/25 10:57 25 MLS/HR Sodium Chloride 1,000 ml @ 75 mls/hr [id number] IV 01/16/25 16:45 01/18/25 11:12 75 MLS/HR Ascorbic Acid 500 mg DAILY PO 01/17/25 10:00 01/18/25 10:57 500 MG Carvedilol 3.125 mg BID PO 01/16/25 22:00 Hold Clopidogrel Bisulfate 75 mg DAILY PO 01/17/25 10:00 Hold Docusate Sodium 100 mg HS PO 01/16/25 22:00 Sucralfate 1 gm DAILY PO 01/17/25 10:00 Hold Lisinopril 10 mg DAILY PO 01/17/25 10:00 01/18/25 10:58 10 MG Patient Own Medication 40 mg DAILY PO 01/17/25 10:00 Hold Dextrose 50 ml UD PRN IV 01/16/25 16:45 Cancel Diagnostic Test (Pha) 1 strip IQ4HR 01/16/25 20:00 01/18/25 12:11 1 STRIP Insulin Human Regular IQ4HR SC 01/16/25 20:00 01/18/25 12:14 2 UNITS Dextrose 50 ml UD PRN IV 01/16/25 19:45 Insulin Glargine 40 units BID SC 01/16/25 21:00 Hold 01/18/25 10:55 40 UNITS Aspirin 81 mg DAILY PO 01/17/25 10:00 01/18/25 10:57 81 MG Acetaminophen/ Hydrocodone Bitart 1 tab Q8HPRN PRN PO 01/17/25 11:45 01/17/25 12:37 1 TAB Vancomycin HCl 100 ml @ 200 mls/hr Q12H IV 01/18/25 01:00 01/18/25 14:36 200 MLS/HR Examination General Appearance: Cooperative. Well developed. Well nourished. NAD Head Exam: Normal inspection Neck Exam: Normal inspection. Non-tender. Normal alignment Pulmonary/Respiratory: Chest non-tender. Clear bilateral breath sounds, no crackles, no wheezing. Cardiovascular/Chest: Regular rate and rhythm. No murmurs. No JVD. Peripheral Pulses: 2+ Radial (R). 2+ Radial (L). 2+ Pedal (R). 2+ Pedal (L) Abdominal Exam: Normal bowel sounds. Soft. normal abdomen, no visible veins, Nontender. No hepatospenomegaly. No masses Ankle Exam: Negative ankle edema Lower extremities: Negative lower extremity edema Neuro/Mental Status: A&O x4. Coherent. Thoughts/Psych: Normal thought pattern. Appropriate mood and affect. Good judgement and insight MSK/skin exam: Mobilizes 4 limbs. Skin is dry and warm. Right toes amputaed, no purulent discharge nor erythema. Left foot has erythema on first metatarsal region. Diminished pedial and posterior tibial pulses. laboratory and microbiology Laboratory Tests 01/18/25 05:05 Test 01/18/25 05:05 Range/Units Serum Glucose 275 H 74-106 mg/dL Microbiology Date/Time Source Procedure Growth Status 01/17/25 11:02 Foot Left Gram Stain - Final Resulted 01/17/25 11:02 Foot Left Anaerobic Culture - Preliminary No growth Resulted 01/17/25 11:02 Foot Left Aerobic Culture - Preliminary Resulted 01/16/25 20:07 Voided Urine Urine Culture - Final Complete 01/16/25 13:59 Blood Blood Culture - Preliminary NO GROWTH AFTER 48 HOURS OF INCUBATION. Resulted Labs and/or images reviewed: Labs reviewed by me, Image(s) reviewed by me Problem List/Assessment/Plan Problem List/Assessment/Plan Left foot osteomyelitis in the 1st metatarsal bone Left foot abscess in the 1st metatarsal bone Left foot cellulitis in the 1st metatarsal bone Left foot diabetic ulcer in the 1st metatarsal bone Type 2 diabetes mellitus with hyperglycemia, uncontrolled Hammertoe deformities Status post incision and drainage to bone and bone biopsy Echocardiogram: Sinus rhythm. Biatrial enlargement. Mild aortic root enlargement. Mild aortic sclerosis. Left ventricular function is borderline at 45 to 50% with normal RV function. Doppler is unremarkable. No pericardial effusion masses or vegetations. Foot CT: Findings which may represent osteomyelitis in the 1st metatarsal bone, adjacent to soft tissue inflammatory changes which may reflect cellulitis. Hammertoe deformities. Bilateral Lower Extremity Arterial Duplex: 20-49% stenosis of bilateral common femoral arteries, right proximal superficial femoral artery, left popliteal artery based on peak systolic velocity criteria. Pain management with Tylenol and [place] Vancomycin per pharmacy Zosyn IV q8h IV NS 75 MLS/HR Zofran 4 MG Iv q4h Colace 100 MG PO hs Vitamin C 500 MG PO daily Accu-check Insulin Lantus Moderate Insulin SS Dextrose 50% dyringe Cretinine Podiatry consult Lovenox 40 MG SC daily MRSA screen negative Blood culture negative Urine culture negative Wound culture Anaerobic negative History of hemorrhagic stroke Aspirin 81 mg p.o. 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 Do Plan discussed with: Patient, Son Dietary Evaluation Review Comments: Nutrition Recommendation: 1) Pankaj 1 pk BID 2) CCHo 60gm + cardiac diet 3) Monitor PO intake, lab values, weight trend, and I/O Expected Outcomes/Goals: Wound to improve Intake to meet >75% estimated needs FU 3-5 days Date of Service: Jan 18, 2025 Billing Provider: KALEIGH DO MD Common Visit Codes: [id number] INP/OBS CARE(HIGH) MARK WOOTEN RESIDENT Jan 18, 2025 16:41
[2025-01-18] MEDS ORDERED: PANTOPRAZOLE 40 MG TAB PO SCH (20:00)
[2025-01-18] MEDS: PANTOPRAZOLE 40 MG TAB PO SCH (21:50)
[2025-01-19] VITALS (7 sets, daily range): BP systolic 129–157; BP diastolic 60–89; PULSE 56–68; RESP 17–18; TEMP 97.1–97.9; O2SAT 95–98
[2025-01-19 07:09] LABS: Hematocrit 31.6 % (36.0-46.0); Hemoglobin 10.7 g/dL (12.2-16.2); Mean Corpuscular Hemoglobin 30.9 pg (28.0-32.0); Mean Corpuscular Volume 91.2 fL (80.0-100.0); Nucleated Red Blood Cells % 0.1 %
[2025-01-19 07:30] LABS: Alanine Aminotransferase 22 U/L (7-40); Albumin 3.5 g/dL (3.2-4.8); Alkaline Phosphatase 62 U/L (46-116); Anion Gap 10 (5-15); BUN/Creatinine Ratio 23.7 (10.0-20.0); Bilirubin, Total 0.3 mg/dL (0.2-1.0); Calcium 9.0 mg/dL (8.7-10.4); Carbon Dioxide 23 mmol/L (20-31); Glucose 86 mg/dL (74-106); Potassium 4.3 mmol/L (3.5-5.1); Sodium 144 mmol/L (136-145); Total Protein 6.8 g/dL (5.7-8.2)
[2025-01-19 07:37] LABS: Blood Urea Nitrogen 31 mg/dL (9-23); Chloride 111 mmol/L (98-107)
--- NOTE | 2025-01-19 11:57 | DVHPNRES ---
Progress Note Date Seen: Jan 19, 2025 Resident Creating Document: MARK WOOTEN Medical Necessity Reason Pt with a Central, PICC or Fol: No Subjective Review of Systems Patient is a 74-year-old Hebrew-speaking female with past medical history of HTN, HLD, DM, diabetic foot, arthritis, CAD, PCI, asthma and CKD, presented to [facility] ED with complaint of nausea, non-bloody vomiting with clear emesis, fever, headaches, and a non-healing left foot wound that started one week prior to admission. The patient sought care at another hospital one week ago for these symptoms and was hospitalized but did not experience improvement after discharge. She denies any other associated symptoms. On evaluation today, patient is afebrile, blood pressure was 151/47 mmHg. Labs show normocytic anemia, creatinine 1.14 and serum glucose 116. Foot CT shows osteomyelitis in the 1st metatarsal bone, adjacent to soft tissue inflammatory changes which may reflect cellulitis and hammertoe deformities. On 01/18/25, Patient was seen and examined at bedside. Overnight events were reviewed. The patient reports improvement in her symptoms after procedure. A PICC line is recommended for long-term access. The consult has been initiated for PICC line placement On 01/19/25, Patient was seen and examined at bedside. Overnight events were reviewed. The patient underwent delayed closure of the left foot wound today as planned. The wound was previously packed with Betadine-soaked gauze and now closed after thorough irrigation and debridement. Past medical history: Hypertension, dyslipidemia, diabetes, CAD s/p CABG in 2015 and PCI (last one 2023), asthma, brain bleed in 2015, diabetic foot s/p right toes amputation, arthritis and CKD Surgical history: CABG 2015, PCI 2023, multiple staged right toes amputation last one 9 years ago, right ankle repair with plates placed. Family history: mother and father had heart disease Social history: Lives in [place] alone, has cargiver that goes from 4pm until 4 am (NOK son, Emre Rhodes). Denies current tobacco, alcohol and other drug abuse. Allergies: Ceftriaxone, morphine, shrimp Home medication: Does not recall Patient seen and examined at bedside. Patient is alert and oriented to time, place person and responding to all questions. Eyes: No Pain, No Vision change, No Conjunctivae inflammation, No Eyelid inflammation, No Other, No Redness ENT: No Ear pain, No Ear discharge, No Nose pain, No Nose discharge, No Nose congestion, No Mouth pain, No Mouth swelling, No Throat pain, No Throat swelling, No Other Cardiovascular: No Chest Pain, No Palpitations, No Orthopnea, No Paroxysmal No Dyspnea, No Edema, No Lt Headedness, No Other Respiratory: No Cough, No Dry, No Shortness of breath, No SOB with exertion, No Wheezing, No Hemoptysis, No Pleuritic Pain, No Sputum, No Other Gastrointestinal: Nausea, Vomiting, No Abdominal Pain, No Diarrhea, No Constipation, No Melena, No Hematochezia, No Other Genitourinary: No Dysuria, No Frequency, No Incontinence, No Hematuria, No Retention, No Other Musculoskeletal: No other, No neck pain, No shoulder pain, No arm pain, No back pain, No hand pain, leg pain, foot pain Skin: No Rash, No Lesions, No Jaundice, No Bruising, No Other Objective vital signs Vital Sign Date Time Temp Pulse Resp B/P (MAP) Pulse Ox O2 Delivery O2 Flow Rate FiO2 01/19/25 09:00 97.1 68 17 149/89 (109) 96 97.1 01/19/25 08:00 Room Air* 0 21 Total Intake and Output 01/18/25 01/18/25 01/19/25 15:00 23:00 07:00 Intake Total 600 ml 1280 ml 600 ml Balance 600 ml 1280 ml 600 ml medications Current Medications Medications Dose Ordered Sig/Bree Route Start Time Stop Time Status Last Admin Dose Admin Acetaminophen 325 mg Q4HP PRN PO 01/16/25 16:45 01/19/25 00:31 325 MG Ondansetron HCl 4 mg Q4HP PRN IV 01/16/25 16:45 Enoxaparin Sodium 40 mg DAILY SC 01/17/25 10:00 01/18/25 10:58 40 MG Vancomycin HCl 0 ml @ 0 mls/hr PER PHARMACY IV 01/16/25 16:45 Piperacillin Sod/ Tazobactam Sod 100 ml @ 25 mls/hr Q8H IV 01/17/25 02:00 01/19/25 11:29 25 MLS/HR Sodium Chloride 1,000 ml @ 75 mls/hr [id number] IV 01/16/25 16:45 01/19/25 11:31 75 MLS/HR Ascorbic Acid 500 mg DAILY PO 01/17/25 10:00 01/18/25 10:57 500 MG Carvedilol 3.125 mg BID PO 01/16/25 22:00 Hold Clopidogrel Bisulfate 75 mg DAILY PO 01/17/25 10:00 Hold Docusate Sodium 100 mg HS PO 01/16/25 22:00 Sucralfate 1 gm DAILY PO 01/17/25 10:00 Hold Lisinopril 10 mg DAILY PO 01/17/25 10:00 01/18/25 10:58 10 MG Dextrose 50 ml UD PRN IV 01/16/25 16:45 Cancel Diagnostic Test (Pha) 1 strip IQ4HR 01/16/25 20:00 01/19/25 11:31 1 STRIP Insulin Human Regular IQ4HR SC 01/16/25 20:00 01/19/25 00:38 6 UNITS Dextrose 50 ml UD PRN IV 01/16/25 19:45 Insulin Glargine 40 units BID SC 01/16/25 21:00 01/18/25 10:55 40 UNITS Aspirin 81 mg DAILY PO 01/17/25 10:00 01/18/25 10:57 81 MG Acetaminophen/ Hydrocodone Bitart 1 tab Q8HPRN PRN PO 01/17/25 11:45 01/17/25 12:37 1 TAB Vancomycin HCl 100 ml @ 200 mls/hr Q12H IV 01/18/25 01:00 01/19/25 01:06 200 MLS/HR Pantoprazole Sodium 40 mg Q24H PO 01/18/25 22:00 01/18/25 21:50 40 MG Examination General Appearance: Cooperative. Well developed. Well nourished. NAD Head Exam: Normal inspection Neck Exam: Normal inspection. Non-tender. Normal alignment Pulmonary/Respiratory: Chest non-tender. Clear bilateral breath sounds, no crackles, no wheezing. Cardiovascular/Chest: Regular rate and rhythm. No murmurs. No JVD. Peripheral Pulses: 2+ Radial (R). 2+ Radial (L). 2+ Pedal (R). 2+ Pedal (L) Abdominal Exam: Normal bowel sounds. Soft. normal abdomen, no visible veins, Nontender. No hepatospenomegaly. No masses Ankle Exam: Negative ankle edema Lower extremities: Negative lower extremity edema Neuro/Mental Status: A&O x4. Coherent. Thoughts/Psych: Normal thought pattern. Appropriate mood and affect. Good judgement and insight MSK/skin exam: Mobilizes 4 limbs. Skin is dry and warm. Right toes amputaed, no purulent discharge nor erythema. Left foot has erythema on first metatarsal region. Diminished pedial and posterior tibial pulses. laboratory and microbiology Laboratory Tests 01/19/25 06:05 Test 01/19/25 06:05 Range/Units Serum Glucose 86 74-106 mg/dL Microbiology Date/Time Source Procedure Growth Status 01/17/25 11:02 Foot Left Gram Stain - Final Resulted 01/17/25 11:02 Foot Left Anaerobic Culture - Preliminary Resulted 01/17/25 11:02 Foot Left Aerobic Culture - Preliminary Resulted 01/16/25 20:07 Voided Urine Urine Culture - Final Complete 01/16/25 13:59 Blood Blood Culture - Preliminary NO GROWTH AFTER 48 HOURS OF INCUBATION. Resulted Labs and/or images reviewed: Labs reviewed by me, Image(s) reviewed by me Problem List/Assessment/Plan Problem List/Assessment/Plan Left foot osteomyelitis in the 1st metatarsal bone Left foot abscess in the 1st metatarsal bone Left foot cellulitis in the 1st metatarsal bone Left foot diabetic ulcer in the 1st metatarsal bone Type 2 diabetes mellitus with hyperglycemia, uncontrolled Hammertoe deformities Status post incision and drainage to bone and bone biopsy Echocardiogram: Sinus rhythm. Biatrial enlargement. Mild aortic root enlargement. Mild aortic sclerosis. Left ventricular function is borderline at 45 to 50% with normal RV function. Doppler is unremarkable. No pericardial effusion masses or vegetations. Foot CT: Findings which may represent osteomyelitis in the 1st metatarsal bone, adjacent to soft tissue inflammatory changes which may reflect cellulitis. Hammertoe deformities. Bilateral Lower Extremity Arterial Duplex: 20-49% stenosis of bilateral common femoral arteries, right proximal superficial femoral artery, left popliteal artery based on peak systolic velocity criteria. Pain management with Tylenol and [place] Vancomycin per pharmacy Zosyn IV q8h IV NS 75 MLS/HR Zofran 4 MG Iv q4h Colace 100 MG PO hs Vitamin C 500 MG PO daily Accu-check Insulin Lantus Moderate Insulin SS Dextrose 50% dyringe Cretinine Podiatry consult Lovenox 40 MG SC daily MRSA screen negative Blood culture negative Urine culture negative Wound culture Anaerobic negative History of hemorrhagic stroke Aspirin 81 mg p.o. 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 Do Plan discussed with: Patient Dietary Evaluation Review Comments: Nutrition Recommendation: 1) Pankaj 1 pk BID 2) CCHo 60gm + cardiac diet 3) Monitor PO intake, lab values, weight trend, and I/O Expected Outcomes/Goals: Wound to improve Intake to meet >75% estimated needs FU 3-5 days Date of Service: Jan 19, 2025 Billing Provider: KALEIGH DO MD Common Visit Codes: [id number] INP/OBS CARE(HIGH) MARK WOOTEN RESIDENT Jan 19, 2025 11:57 KALEIGH DO MD Jan 23, 2025 20:25
[2025-01-20] VITALS (8 sets, daily range): BP systolic 135–172; BP diastolic 62–78; PULSE 58–72; RESP 16–19; TEMP 97.1–98; O2SAT 96–99
[2025-01-20 07:03] LABS: Hematocrit 35.1 % (36.0-46.0); Hemoglobin 11.4 g/dL (12.2-16.2); Mean Corpuscular Hemoglobin 30.2 pg (28.0-32.0); Mean Corpuscular Volume 92.8 fL (80.0-100.0); Nucleated Red Blood Cells % 0.2 %
[2025-01-20 07:18] LABS: Alanine Aminotransferase 20 U/L (7-40); Albumin 3.5 g/dL (3.2-4.8); Anion Gap 9 (5-15); BUN/Creatinine Ratio 18.8 (10.0-20.0); Bilirubin, Total 0.4 mg/dL (0.2-1.0); Calcium 8.7 mg/dL (8.7-10.4); Carbon Dioxide 22 mmol/L (20-31); Glucose 75 mg/dL (74-106); Potassium 4.5 mmol/L (3.5-5.1); Sodium 144 mmol/L (136-145); Total Protein 6.8 g/dL (5.7-8.2)
[2025-01-20 07:19] LABS: Blood Urea Nitrogen 25 mg/dL (9-23); Chloride 113 mmol/L (98-107)
[2025-01-20 07:34] LABS: Alkaline Phosphatase 58 U/L (46-116)
[2025-01-20] MEDS ORDERED: SODIUM CHLORIDE 0.9% 500 ML IV ONE (09:00)
[2025-01-20] MEDS: INSULIN LANTUS (GLARGINE) 1 /0.01ml (100units/ml) SC SCH (10:56)
--- NOTE | 2025-01-20 15:25 | DVHPNRES ---
Progress Note Date Seen: Jan 20, 2025 Resident Creating Document: OMAR MACEDO Medical Necessity Reason Pt with a Central, PICC or Fol: No Subjective Review of Systems Patient was seen today at bedside Labs and chart reviewed Serum creatinine 1.33 Blood sugar around 8:00 a.m. was 76, reduced dose of Lantus Wound culture possible anaerobes and few lactobacillus species Patient is due for wound closure on Wednesday01/22/2025 by Podiatry Objective vital signs Vital Sign Date Time Temp Pulse Resp B/P (MAP) Pulse Ox O2 Delivery O2 Flow Rate FiO2 01/20/25 13:00 97.4 62 16 162/78 (106) 98 97.4 01/20/25 07:50 Room Air* 0 21 Total Intake and Output 01/19/25 01/19/25 01/20/25 15:00 23:00 07:00 Intake Total 540 ml 960 ml 400 ml Balance 540 ml 960 ml 400 ml medications Current Medications Medications Dose Ordered Sig/Bree Route Start Time Stop Time Status Last Admin Dose Admin Acetaminophen 325 mg Q4HP PRN PO 01/16/25 16:45 01/19/25 00:31 325 MG Ondansetron HCl 4 mg Q4HP PRN IV 01/16/25 16:45 Enoxaparin Sodium 40 mg DAILY SC 01/17/25 10:00 01/20/25 10:47 40 MG Vancomycin HCl 0 ml @ 0 mls/hr PER PHARMACY IV 01/16/25 16:45 Piperacillin Sod/ Tazobactam Sod 100 ml @ 25 mls/hr Q8H IV 01/17/25 02:00 01/20/25 10:41 25 MLS/HR Sodium Chloride 1,000 ml @ 75 mls/hr [id number] IV 01/16/25 16:45 01/19/25 11:31 75 MLS/HR Ascorbic Acid 500 mg DAILY PO 01/17/25 10:00 01/20/25 10:46 500 MG Carvedilol 3.125 mg BID PO 01/16/25 22:00 Hold Clopidogrel Bisulfate 75 mg DAILY PO 01/17/25 10:00 Hold Docusate Sodium 100 mg HS PO 01/16/25 22:00 Sucralfate 1 gm DAILY PO 01/17/25 10:00 Hold Lisinopril 10 mg DAILY PO 01/17/25 10:00 01/20/25 10:46 10 MG Dextrose 50 ml UD PRN IV 01/16/25 16:45 Cancel Diagnostic Test (Pha) 1 strip IQ4HR 01/16/25 20:00 01/20/25 12:00 1 STRIP Insulin Human Regular IQ4HR SC 01/16/25 20:00 01/20/25 12:00 3 UNITS Dextrose 50 ml UD PRN IV 01/16/25 19:45 Aspirin 81 mg DAILY PO 01/17/25 10:00 01/20/25 10:46 81 MG Acetaminophen/ Hydrocodone Bitart 1 tab Q8HPRN PRN PO 01/17/25 11:45 01/17/25 12:37 1 TAB Vancomycin HCl 100 ml @ 200 mls/hr Q12H IV 01/18/25 01:00 01/20/25 13:21 200 MLS/HR Pantoprazole Sodium 40 mg Q24H PO 01/18/25 22:00 01/19/25 22:10 40 MG Insulin Glargine 20 units BID SC 01/20/25 10:00 01/20/25 10:56 20 UNITS Examination General examination- awake, alert, oriented HEENT- PEERLA, no acute nasal discharge Cardiovascular- S1-S2 audible, rate and rhythm regular, no murmur Respiratory- CTAB, no wheeze or rhonchi Gastrointestinal-nontender, bowel sound+. Nondistended Musculoskeletal-no acute joint swelling or tenderness or redness Lower extremity- bandage in the left foot, status post incision and drainage of the wound of the left foot Neurological- cranial nerves intact, no acute dysarthria or dysphagia Psychiatry- denies depression or SI or HI Skin- no acute rash or purpura laboratory and microbiology Laboratory Tests 01/20/25 05:51 Test 01/20/25 05:51 Range/Units Serum Glucose 75 74-106 mg/dL Microbiology Date/Time Source Procedure Growth Status 01/17/25 11:02 Foot Left Gram Stain - Final Resulted 01/17/25 11:02 Foot Left Anaerobic Culture - Preliminary Resulted 01/17/25 11:02 Foot Left Aerobic Culture - Preliminary Resulted 01/16/25 20:07 Voided Urine Urine Culture - Final Complete 01/16/25 13:59 Blood Blood Culture - Preliminary NO GROWTH AFTER 72 HOURS OF INCUBATION. Resulted Problem List/Assessment/Plan Problem List/Assessment/Plan Problem List/Assessment/Plan Left foot osteomyelitis in the 1st metatarsal bone Left foot abscess in the 1st metatarsal bone Left foot cellulitis in the 1st metatarsal bone Left foot diabetic ulcer in the 1st metatarsal bone Type 2 diabetes mellitus with hyperglycemia, uncontrolled Hammertoe deformities Status post incision and drainage to bone and bone biopsy Echocardiogram: Sinus rhythm. Biatrial enlargement. Mild aortic root enlargement. Mild aortic sclerosis. Left ventricular function is borderline at 45 to 50% with normal RV function. Doppler is unremarkable. No pericardial effusion masses or vegetations. Foot CT: Findings which may represent osteomyelitis in the 1st metatarsal bone, adjacent to soft tissue inflammatory changes which may reflect cellulitis. Hammertoe deformities. Bilateral Lower Extremity Arterial Duplex: 20-49% stenosis of bilateral common femoral arteries, right proximal superficial femoral artery, left popliteal artery based on peak systolic velocity criteria. Pain management with Tylenol and [place] Vancomycin per pharmacy Zosyn IV q8h IV NS 75 MLS/HR Zofran 4 MG Iv q4h Colace 100 MG PO hs Vitamin C 500 MG PO daily Accu-check Insulin Lantus Moderate Insulin SS Cretinine Podiatry consult Lovenox 40 MG SC daily MRSA screen negative Blood culture negative Urine culture negative Wound culture possible anaerobes and few lactobacillus species -patient is due for wound closure on 01/23/2020 History of hemorrhagic stroke Aspirin 81 mg p.o. 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 Valdez Plan discussed with: Patient Plan discussed with: Patient, Other (RN) My Orders My Orders Orders - OMAR MACEDO RESIDENT Procedure Category Date Status Time Insulin Lantus PHA 01/20/25 In Process (Glargine) (Lantus) 10:00 Dietary Evaluation Review Comments: Nutrition Recommendation: 1) Pankaj 1 pk BID 2) CCHo 60gm + cardiac diet 3) Monitor PO intake, lab values, weight trend, and I/O Expected Outcomes/Goals: Wound to improve Intake to meet >75% estimated needs FU 3-5 days Date of Service: Jan 20, 2025 Billing Provider: KALEIGH VALDEZ MD Common Visit Codes: [id number] INP/OBS CARE(HIGH) OMAR MACEDO RESIDENT Jan 20, 2025 15:25 KALEIGH VALDEZ MD Jan 23, 2025 21:25
[2025-01-21] VITALS (7 sets, daily range): BP systolic 143–153; BP diastolic 62–74; PULSE 61–71; RESP 16–19; TEMP 97.1–97.6; O2SAT 96–100
[2025-01-21 06:59] LABS: Hematocrit 33.5 % (36.0-46.0); Hemoglobin 11.0 g/dL (12.2-16.2); Mean Corpuscular Hemoglobin 30.4 pg (28.0-32.0); Mean Corpuscular Volume 92.1 fL (80.0-100.0); Nucleated Red Blood Cells % 0.2 %
[2025-01-21 07:07] LABS: Potassium 4.8 mmol/L (3.5-5.1); Sodium 143 mmol/L (136-145)
[2025-01-21 07:08] LABS: Anion Gap 9 (5-15); Calcium 8.8 mg/dL (8.7-10.4); Carbon Dioxide 22 mmol/L (20-31)
[2025-01-21 07:09] LABS: Chloride 112 mmol/L (98-107)
[2025-01-21 07:13] LABS: BUN/Creatinine Ratio 22.6 (10.0-20.0)
[2025-01-21 07:14] LABS: Magnesium 1.9 mg/dL (1.6-2.6)
[2025-01-21 07:15] LABS: Blood Urea Nitrogen 28 mg/dL (9-23); Glucose 145 mg/dL (74-106)
--- NOTE | 2025-01-21 11:37 | DVHPNRES ---
Progress Note Date Seen: Jan 21, 2025 Resident Creating Document: MARK WOOTEN Medical Necessity Reason Pt with a Central, PICC or Fol: No Subjective Review of Systems Patient is a 74-year-old Turkmen-speaking female with past medical history of HTN, HLD, DM, diabetic foot, arthritis, CAD, PCI, asthma and CKD, presented to [facility] ED with complaint of nausea, non-bloody vomiting with clear emesis, fever, headaches, and a non-healing left foot wound that started one week prior to admission. The patient sought care at another hospital one week ago for these symptoms and was hospitalized but did not experience improvement after discharge. She denies any other associated symptoms. On evaluation today, patient is afebrile, blood pressure was 151/47 mmHg. Labs show normocytic anemia, creatinine 1.14 and serum glucose 116. Foot CT shows osteomyelitis in the 1st metatarsal bone, adjacent to soft tissue inflammatory changes which may reflect cellulitis and hammertoe deformities. On 01/18/25, Patient was seen and examined at bedside. Overnight events were reviewed. The patient reports improvement in her symptoms after procedure. A PICC line is recommended for long-term access. The consult has been initiated for PICC line placement On 01/19/25, Patient was seen and examined at bedside. Overnight events were reviewed. The patient underwent delayed closure of the left foot wound today as planned. The wound was previously packed with Betadine-soaked gauze and now closed after thorough irrigation and debridement. On 01/21/25, Patient was seen today at bedside. Labs and chart were reviewed. Serum creatinine is 1.24. Wound culture shows possible anaerobes and few lactobacillus species. The patient is scheduled for wound closure on 01/22/2025, by Podiatry. Past medical history: Hypertension, dyslipidemia, diabetes, CAD s/p CABG in 2016 and PCI (last one 2023), asthma, brain bleed in 2016, diabetic foot s/p right toes amputation, arthritis and CKD Surgical history: CABG 2015, PCI 2023, multiple staged right toes amputation last one 9 years ago, right ankle repair with plates placed. Family history: mother and father had heart disease Social history: Lives in [place] alone, has cargiver that goes from 4pm until 4 am (NOK son, Emre Rhodes). Denies current tobacco, alcohol and other drug abuse. Allergies: Ceftriaxone, morphine, shrimp Home medication: Does not recall Patient seen and examined at bedside. Patient is alert and oriented to time, place person and responding to all questions. Eyes: No Pain, No Vision change, No Conjunctivae inflammation, No Eyelid inflammation, No Other, No Redness ENT: No Ear pain, No Ear discharge, No Nose pain, No Nose discharge, No Nose congestion, No Mouth pain, No Mouth swelling, No Throat pain, No Throat swelling, No Other Cardiovascular: No Chest Pain, No Palpitations, No Orthopnea, No Paroxysmal No Dyspnea, No Edema, No Lt Headedness, No Other Respiratory: No Cough, No Dry, No Shortness of breath, No SOB with exertion, No Wheezing, No Hemoptysis, No Pleuritic Pain, No Sputum, No Other Gastrointestinal: Nausea, Vomiting, No Abdominal Pain, No Diarrhea, No Constipation, No Melena, No Hematochezia, No Other Genitourinary: No Dysuria, No Frequency, No Incontinence, No Hematuria, No Retention, No Other Musculoskeletal: No other, No neck pain, No shoulder pain, No arm pain, No back pain, No hand pain, leg pain, foot pain Skin: No Rash, No Lesions, No Jaundice, No Bruising, No Other Objective vital signs Vital Sign Date Time Temp Pulse Resp B/P (MAP) Pulse Ox O2 Delivery O2 Flow Rate FiO2 01/21/25 10:15 143/66 01/21/25 08:50 97.6 61 18 97 97.6 01/21/25 08:10 Room Air* 0 21 Total Intake and Output 01/20/25 01/20/25 01/21/25 15:00 23:00 07:00 Intake Total 200 ml 400 ml 540 ml Balance 200 ml 400 ml 540 ml medications Current Medications Medications Dose Ordered Sig/Bree Route Start Time Stop Time Status Last Admin Dose Admin Acetaminophen 325 mg Q4HP PRN PO 01/16/25 16:45 01/19/25 00:31 325 MG Ondansetron HCl 4 mg Q4HP PRN IV 01/16/25 16:45 Enoxaparin Sodium 40 mg DAILY SC 01/17/25 10:00 01/21/25 10:12 40 MG Vancomycin HCl 0 ml @ 0 mls/hr PER PHARMACY IV 01/16/25 16:45 Piperacillin Sod/ Tazobactam Sod 100 ml @ 25 mls/hr Q8H IV 01/17/25 02:00 01/21/25 10:10 25 MLS/HR Sodium Chloride 1,000 ml @ 75 mls/hr [id number] IV 01/16/25 16:45 01/21/25 03:25 75 MLS/HR Ascorbic Acid 500 mg DAILY PO 01/17/25 10:00 01/21/25 10:16 500 MG Carvedilol 3.125 mg BID PO 01/16/25 22:00 Hold Clopidogrel Bisulfate 75 mg DAILY PO 01/17/25 10:00 Hold Docusate Sodium 100 mg HS PO 01/16/25 22:00 Sucralfate 1 gm DAILY PO 01/17/25 10:00 Hold Lisinopril 10 mg DAILY PO 01/17/25 10:00 01/21/25 10:15 10 MG Dextrose 50 ml UD PRN IV 01/16/25 16:45 Cancel Diagnostic Test (Pha) 1 strip IQ4HR 01/16/25 20:00 01/21/25 08:15 1 STRIP Insulin Human Regular IQ4HR SC 01/16/25 20:00 01/20/25 20:00 12 UNITS Dextrose 50 ml UD PRN IV 01/16/25 19:45 Aspirin 81 mg DAILY PO 01/17/25 10:00 01/21/25 10:16 81 MG Acetaminophen/ Hydrocodone Bitart 1 tab Q8HPRN PRN PO 01/17/25 11:45 01/17/25 12:37 1 TAB Vancomycin HCl 100 ml @ 200 mls/hr Q12H IV 01/18/25 01:00 01/21/25 01:00 200 MLS/HR Pantoprazole Sodium 40 mg Q24H PO 01/18/25 22:00 01/20/25 22:29 40 MG Insulin Glargine 20 units BID SC 01/20/25 10:00 01/21/25 10:23 20 UNITS Examination General Appearance: Cooperative. Well developed. Well nourished. NAD Head Exam: Normal inspection Neck Exam: Normal inspection. Non-tender. Normal alignment Pulmonary/Respiratory: Chest non-tender. Clear bilateral breath sounds, no crackles, no wheezing. Cardiovascular/Chest: Regular rate and rhythm. No murmurs. No JVD. Peripheral Pulses: 2+ Radial (R). 2+ Radial (L). 2+ Pedal (R). 2+ Pedal (L) Abdominal Exam: Normal bowel sounds. Soft. normal abdomen, no visible veins, Nontender. No hepatospenomegaly. No masses Ankle Exam: Negative ankle edema Lower extremities: Negative lower extremity edema Neuro/Mental Status: A&O x4. Coherent. Thoughts/Psych: Normal thought pattern. Appropriate mood and affect. Good judgement and insight MSK/skin exam: Mobilizes 4 limbs. Skin is dry and warm. Right toes amputaed, no purulent discharge nor erythema. Left foot has erythema on first metatarsal region. Diminished pedial and posterior tibial pulses. laboratory and microbiology Laboratory Tests 01/21/25 06:27 Test 01/21/25 06:27 Range/Units Serum Glucose 145 H 74-106 mg/dL Microbiology Date/Time Source Procedure Growth Status 01/17/25 11:02 Foot Left Gram Stain - Final Resulted 01/17/25 11:02 Foot Left Anaerobic Culture - Preliminary Resulted 01/17/25 11:02 Foot Left Aerobic Culture - Preliminary Resulted 01/16/25 20:07 Voided Urine Urine Culture - Final Complete 01/16/25 13:59 Blood Blood Culture - Preliminary NO GROWTH AFTER 72 HOURS OF INCUBATION. Resulted Labs and/or images reviewed: Labs reviewed by me, Image(s) reviewed by me Problem List/Assessment/Plan Problem List/Assessment/Plan Left foot osteomyelitis in the 1st metatarsal bone Left foot abscess in the 1st metatarsal bone Left foot cellulitis in the 1st metatarsal bone Left foot diabetic ulcer in the 1st metatarsal bone Type 2 diabetes mellitus with hyperglycemia, uncontrolled Hammertoe deformities Status post incision and drainage to bone and bone biopsy Wound closure on Wednesday01/22/25 by Podiatry Echocardiogram: Sinus rhythm. Biatrial enlargement. Mild aortic root enlargement. Mild aortic sclerosis. Left ventricular function is borderline at 45 to 50% with normal RV function. Doppler is unremarkable. No pericardial effusion masses or vegetations. Foot CT: Findings which may represent osteomyelitis in the 1st metatarsal bone, adjacent to soft tissue inflammatory changes which may reflect cellulitis. Hammertoe deformities. Bilateral Lower Extremity Arterial Duplex: 20-49% stenosis of bilateral common femoral arteries, right proximal superficial femoral artery, left popliteal artery based on peak systolic velocity criteria. Pain management with Tylenol and [place] Vancomycin per pharmacy Zosyn IV q8h IV NS 75 MLS/HR Zofran 4 MG Iv q4h Colace 100 MG PO hs Vitamin C 500 MG PO daily Accu-check Insulin Lantus Moderate Insulin SS Dextrose 50% dyringe Cretinine Podiatry consult Lovenox 40 MG SC daily MRSA screen negative Blood culture negative Urine culture negative Wound culture Anaerobic negative History of hemorrhagic stroke Aspirin 81 mg p.o. daily Plavix 71 MG PO daily hold CAD s/p CABG and PCI Hypertension monitor BP Dyslipidemia monitor Asthma LEVI on CKD due to VMN Monitor renal function Avoid nephrotoxic drugs Obesity, BMI 33.1 kg/m2 I have counseled the patient on healthy lifestyle modifications Diet: Diabetes DVT prophylaxis: Lovenox 40mg Goals of care: Full code, discussed for >30 minutes on 01/21/25 Plan discussed with patient Plan discussed with Dr. Do Plan discussed with: Patient Dietary Evaluation Review Comments: Nutrition Recommendation: 1) Pankaj 1 pk BID 2) CCHo 60gm + cardiac diet 3) Monitor PO intake, lab values, weight trend, and I/O Expected Outcomes/Goals: Wound to improve Intake to meet >75% estimated needs FU 3-5 days Date of Service: Jan 21, 2025 Billing Provider: KALEIGH DO MD Common Visit Codes: [id number] INP/OBS CARE(HIGH) MARK WOOTEN RESIDENT Jan 21, 2025 11:37
[2025-01-22 01:00] VITALS: BP 133/69; PULSE 67; RESP 18; TEMP 97.7; O2SAT 98
[2025-01-22 05:00] VITALS: BP 153/67; PULSE 67; RESP 18; TEMP 97.8; O2SAT 98
--- NOTE | 2025-01-22 07:30 | DVH ---
CLINICAL INFORMATION: 74 years old, Female; pre-op. TECHNIQUE: Single AP portable chest radiograph was obtained. COMPARISON: XR CHEST 1 VIEW on DOS: 01/10/25 FINDINGS: Interstitial opacities in the left upper lung appears slightly increased compared to the prior exam. No focal consolidation. No other significant interval change. IMPRESSION: Interstitial opacities in the left upper lung, may be slightly increased compared to the prior exam. Possibly infectious or inflammatory in nature. No focal consolidation. Correlate with clinical findings.
[2025-01-22 08:29] LABS: Hematocrit 32.6 % (36.0-46.0); Hemoglobin 10.8 g/dL (12.2-16.2); Mean Corpuscular Hemoglobin 30.3 pg (28.0-32.0); Mean Corpuscular Volume 91.4 fL (80.0-100.0); Nucleated Red Blood Cells % 0.0 %
[2025-01-22 08:46] LABS: Alanine Aminotransferase 23 U/L (7-40); Alkaline Phosphatase 57 U/L (46-116); Anion Gap 10 (5-15); BUN/Creatinine Ratio 18.8 (10.0-20.0); Carbon Dioxide 24 mmol/L (20-31); Glucose 83 mg/dL (74-106); Potassium 4.6 mmol/L (3.5-5.1)
[2025-01-22 08:47] LABS: Total Protein 6.7 g/dL (5.7-8.2)
[2025-01-22 08:48] LABS: Albumin 3.6 g/dL (3.2-4.8); Bilirubin, Total 0.4 mg/dL (0.2-1.0); Blood Urea Nitrogen 25 mg/dL (9-23); Calcium 8.7 mg/dL (8.7-10.4); Chloride 113 mmol/L (98-107); Sodium 147 mmol/L (136-145)
[2025-01-22 08:49] LABS: INR 0.98 (0.9-1.15); Partial Thromboplastin Time 23.7 SEC (24.5-34.5); Prothrombin Time 10.4 sec (9.3-11.8)
[2025-01-22 09:00] VITALS: BP 168/70; PULSE 67; RESP 16; TEMP 97.6; O2SAT 97
[2025-01-22] MEDS ORDERED: LIDOCAINE 1% INJ PF 5ML AMP ONE (12:00)
[2025-01-22] MEDS ORDERED: fentaNYL CITRATE 100 MCG/2 ML VL ONE (12:00)
[2025-01-22] MEDS ORDERED: MIDAZOLAM HCL 2MG/2ML 2ml VIAL (1mg/ml) ONE (12:00)
[2025-01-22] MEDS ORDERED: KETAMINE 50mg/ML 1ml syringe ONE (12:00)
[2025-01-22] MEDS ORDERED: ONDANSETRON HCL 4 MG/2 ML VIAL ONE (12:00)
[2025-01-22] MEDS ORDERED: PROPOFOL 10 MG/ML 20 ML IV ONE (12:00)
[2025-01-22] MEDS ORDERED: KETOROLAC TROMETH 30 MG/ML 1ML VIAL IV ONE (12:15)
[2025-01-22] MEDS ORDERED: HYDROmorphone HCL 2 MG/ML VL/or syr IV PRN ×2 (12:15)
[2025-01-22] MEDS ORDERED: METOCLOPRAMIDE HCL 5MG/ml INJ 2ml VIAL IV PRN (12:15)
[2025-01-22] MEDS: VANCOMYCIN HCL 1000 MG VL ONE (12:21)
[2025-01-22 12:26] VITALS: PULSE 70; RESP 17; O2SAT 97
--- NOTE | 2025-01-22 12:48 | DVHPN2 ---
Subjective Kelly Mcarthur is a 74 year old female patient who presents to the ED with chief complaint of nausea, non bloody vomiting with c;ear emesis, fever, headaches and non healing left foot wound, which started 1 week before her admission. PAtient went to seek assistance at another hospital 1 week ago due to these symptoms, was hospitalized, but did not improve her symptoms after discharge. Denies any other associated symptoms. Changes from previous H/P or p: No Changes Objective Vitals Vital Signs Date Time Temp Pulse Resp B/P (MAP) Pulse Ox O2 Delivery O2 Flow Rate FiO2 01/22/25 12: 97.0 70 17 151/50 (83) 97 97.0 01/22/25 12:26 Room Air 0 97 Intake/Output Intake and Output 01/22/25 07:00 Intake Total 1675 ml Balance 1675 ml Intake Oral 950 ml IV Total 725 ml # Voids 4 # Bowel Movements 1 Exam Dermatological: Skin is dry with mild erythema and some maceration around the wound site No gross deformities noted Mild non-pitting edema present bilaterally Left hallux medial ulceration with cellulitis Vascular: Dorsalis pedis and posterior tibial pulses are 1+ bilaterally Capillary refill is under 2 seconds Skin temperature is warm bilaterally Neurologic: Protective sensation is absent on the plantar forefoot bilaterally Monofilament testing reveals decreased sensation in multiple plantar sites Musculoskeletal: Range of motion at the ankle and MTP joints is within normal limits. Strength is 5/5 in all tested muscle groups. Gait is antalgic due to offloading of the affected limb. Medications Current Medications Medications Dose Ordered Sig/Bree Route Start Time Stop Time Status Last Admin Dose Admin Acetaminophen 325 mg Q4HP PRN PO 01/16/25 16:45 01/19/25 00:31 325 MG Ondansetron HCl 4 mg Q4HP PRN IV 01/16/25 16:45 Enoxaparin Sodium 40 mg DAILY SC 01/17/25 10:00 01/21/25 10:12 40 MG Vancomycin HCl 0 ml @ 0 mls/hr PER PHARMACY IV 01/16/25 16:45 Piperacillin Sod/ Tazobactam Sod 100 ml @ 25 mls/hr Q8H IV 01/17/25 02:00 01/22/25 10:11 25 MLS/HR Sodium Chloride 1,000 ml @ 75 mls/hr [id number] IV 01/16/25 16:45 01/21/25 03:25 75 MLS/HR Ascorbic Acid 500 mg DAILY PO 01/17/25 10:00 01/21/25 10:16 500 MG Carvedilol 3.125 mg BID PO 01/16/25 22:00 Hold Clopidogrel Bisulfate 75 mg DAILY PO 01/17/25 10:00 Hold Docusate Sodium 100 mg HS PO 01/16/25 22:00 Sucralfate 1 gm DAILY PO 01/17/25 10:00 Hold Lisinopril 10 mg DAILY PO 01/17/25 10:00 01/21/25 10:15 10 MG Dextrose 50 ml UD PRN IV 01/16/25 16:45 Cancel Diagnostic Test (Pha) 1 strip IQ4HR 01/16/25 20:00 01/22/25 08:09 1 STRIP Insulin Human Regular IQ4HR SC 01/16/25 20:00 01/21/25 20:48 9 UNITS Dextrose 50 ml UD PRN IV 01/16/25 19:45 Aspirin 81 mg DAILY PO 01/17/25 10:00 01/21/25 10:16 81 MG Acetaminophen/ Hydrocodone Bitart 1 tab Q8HPRN PRN PO 01/17/25 11:45 01/17/25 12:37 1 TAB Vancomycin HCl 100 ml @ 200 mls/hr Q12H IV 01/18/25 01:00 01/22/25 01:58 200 MLS/HR Pantoprazole Sodium 40 mg Q24H PO 01/18/25 22:00 01/21/25 20:55 40 MG Insulin Glargine 20 units BID SC 01/20/25 10:00 01/21/25 20:49 20 UNITS Hydromorphone HCl 0.5 mg Q10M PRN IV 01/22/25 12:15 01/22/25 12:56 Laboratory Results Laboratory Tests 01/22/25 08:07 Chemistry Test 01/22/25 08:07 Albumin 3.6 g/dL (3.2-4.8) Calcium Level 8.7 mg/dL (8.7-10.4) Total Protein 6.7 g/dL (5.7-8.2) Coagulation Test 01/22/25 08:07 Prothrombin Time 10.4 sec (9.3-11.8) Prothrombin Time INR 0.98 (0.9-1.15) Activated Partial Thromboplast Time 23.7 SEC (24.5-34.5) L LFT Test 01/22/25 08:07 Alanine Aminotransferase (ALT) 23 U/L (7-40) Alkaline Phosphatase 57 U/L (46-116) Aspartate Amino Transferase (AST) 24 U/L (13-40) Total Bilirubin 0.4 mg/dL (0.2-1.0) Urinalysis Test 01/16/25 20:07 Urine Color Light-yellow (Yellow) Urine Clarity Clear (Clear) Urine pH 6.0 (5.0-9.0) Urine Specific [place] 1.018 (1.001-1.035) Urine Protein Trace (Negative) H Urine Ketones Negative (Negative) Urine Blood 3+ /uL (Negative) H Urine Nitrite 1+ (Negative) H Urine Bilirubin Negative (Negative) Urine Urobilinogen Normal mg/dL (Negative) Urine Leukocyte Esterase 2+ /uL (Negative) Urine RBC 47 /hpf (0 - 4) Urine Microscopic WBC 37 /HPF (0-5) H Urine Squamous Epithelial Cells Few /hpf (<5) Urine Bacteria Few /hpf (None Seen) H Urine Glucose 4+ mg/dL (Normal) H Microbiology Microbiology Date/Time Source Procedure Growth Status 01/17/25 11:02 Foot Left Gram Stain - Final Resulted 01/17/25 11:02 Foot Left Anaerobic Culture - Preliminary Resulted 01/17/25 11:02 Foot Left Aerobic Culture - Final Resulted 01/16/25 20:07 Voided Urine Urine Culture - Final Complete 01/16/25 13:59 Blood Blood Culture - Final NO GROWTH AFTER 5 DAYS OF INCUBATION. Complete Assessment/Plan Assessment/Plan ASSESSMENT: Patient is a 74 year old seen on the floor follow up s/p foot I&D PLAN: - The patients chart was reviewed, clinical findings were discussed with the patient, the etiologies of the conditions were discussed in detail, and a treatment plan was agreed to at this time, with both oral and written instructions provided. - reviewed advanced imaging - reviewed all of the labs and pathology - discussed plan is to perform a subsequent incision and drainage - patient has been NPO since midnight - take him to the OR today - it was determined that multiple I&Ds will be necessary to save the limb - can DC home after surgery today All questions were answered and concerns addressed to the patient's satisfaction. The patient was given the phone number to the clinic and was told how to make contact with the clinic should any concerns or questions arise. Patient understands that if any questions or concerns arise prior to the next appointment, we should be contacted immediately. FOLLOW-UP: Continue to follow while inpatient Plan discussed with: Patient My Orders Orders - NINA WALTON DPM Procedure Category Date Status Time Npo After Midnight HOLLY 01/21/25 In Process 22:11 Obtain Consent For: ORDERS 01/21/25 Transmitted 22:11 Consistent DIET 01/22/25 [facility] L[facility] Problem List: (1) Hematemesis (2) Dehydration (3) Acute abdominal pain (4) Essential hypertension (5) NSTEMI (non-ST elevated myocardial infarction) (6) Chronic anemia (7) Partial bowel obstruction (8) Moderate malnutrition (9) Acute severe exacerbation of asthma (10) Osteomyelitis of great toe of left foot (11) Acute bronchitis (12) Acute gastritis (13) Chronic back pain (14) Diabetes uncontrolled (15) Diabetic ulcer of left foot associated with diabetes mellitus due to underlying condition (16) Cellulitis of left foot (17) Hyperlipidemia (18) Diabetes mellitus (19) SWELLING OF LIMB (20) SEPTICEMIA NOS Visit Coding Podiatry Date of Service if different f: Jan 22, 2025 Billing Provider: NINA WALTON DPM Podiatry Common Visit Codes: PROCEDURE ONLY NINA WALTON DPM Jan 22, 2025 12:48
--- NOTE | 2025-01-22 12:49 | DVHOP2 ---
Operative Report - 2 Report Details Date: 01/22/25 Preop Diagnosis: 1. Left foot osteomyelitis 2. Left foot abscess 3. Left foot cellulitis 4. Left foot diabetic ulcer Postop Diagnosis: Same as preop Surgeon: Nina Walton MD Anesthesiologist: See anesthesia Anesthesia: Mac Consent: The patient was informed of the risks and benefits of the procedure. These include but are not limited to complications of anesthesia, postoperative infection, incomplete relief of symptoms, recurrence of symptoms, damage to blood vessels, nerves and tendons, deep venous thrombosis, pulmonary embolism and possible need for repeat surgery in the future. Complications: None Estimated Blood Loss: Minimal Fluids: See anesthesia Findings: Consistent with diagnosis Indications for Surgery: Worsening foot wound Name of Procedure Performed 1. Left foot I&D to bone (63466) 2. Left foot delayed closure (30851) Procedure Details Procedure Details: PRE-PROCEDURE INFORMATION: In the pre-op holding area, the extremity to be operated on was clearly marked and the patient verified correct laterality of the marking. The patient was transferred to the OR table and placed in a supine position. A timeout was performed in which identification of the correct patient, procedure, location, and materials was done. The left foot and leg were prepped and draped in normal sterile fashion. DESCRIPTION OF PROCEDURE: Attention was directed to the left where where previous incision was made. An incision was made over this area and was deepened through blunt dissection. The incision was deepened to the level of abscess and bone. Care was taken to the dissection to avoid any neurovascular and tendinous structures. The incision was deepened to the bone, and the abscess appeared to be purulent fluid consistent with pus. The cortices of the bone was then removed with rongeur an all necrotic tissue. After the abscess was drained, the area was irrigated with 3 L normal saline using cysto tubing. The area was then inspected and any areas of tracking, especially along the tendons were also drained. A delayed closure was then performed using 2-0 nylon after was deemed appropriate with no longer concern for infection. POSTOPERATIVE INFORMATION: The patient tolerated the above noted procedure and anesthesia well and was transferred to the PACU with vital signs stable, and vascular status intact with capillary refill intact to all digits. Can weightbear as tolerated in the postoperative shoe. Recommend 6 weeks IV antibiotics. Follow up with me in 1 week. Condition Good Disposition Still a Patient Visit Coding Podiatry Date of Service if different f: Jan 22, 2025 Billing Provider: NINA WALTON DPM Podiatry Common Visit Codes: PROCEDURE ONLY NINA WALTON DPM Jan 22, 2025 12:49
[2025-01-22] MEDS: LIDOCAINE 1% HCL (LOCAL ANESTH.) INJ 20ML MDV ONE (12:50)
[2025-01-22] MEDS: BUPIVACAINE HCL 50 ML ONE (12:50)
--- NOTE | 2025-01-22 15:29 | DVHPNRES ---
Progress Note Date Seen: Jan 22, 2025 Resident Creating Document: MARK WOOTEN Medical Necessity Reason Pt with a Central, PICC or Fol: No Subjective Review of Systems Patient is a 74-year-old Latvian-speaking female with past medical history of Hypertension, dyslipidemia, diabetes, CAD s/p CABG in 2015 and PCI (last one 2023), asthma, brain bleed in 2016, diabetic foot s/p right toes amputation, arthritis and CKD, presented to [facility] ED with complaint of nausea, non-bloody vomiting with clear emesis, fever, headaches, and a non- healing left foot wound that started one week prior to admission. The patient sought care at another hospital one week ago for these symptoms and was hospitalized but did not experience improvement after discharge. She denies any other associated symptoms. Upon admission, patient is afebrile, blood pressure was 151/47 mmHg. Labs show normocytic anemia, creatinine 1.14 and serum glucose 116. Foot CT shows osteomyelitis in the 1st metatarsal bone, adjacent to soft tissue inflammatory changes which may reflect cellulitis and hammertoe deformities. On 01/17/25, Patient presented left foot incision and drainage and left foot biopsy (for anatomy and culture) On 01/18/25, The patient reports improvement in her symptoms after procedure. A PICC line is recommended for long-term access. The consult has been initiated for PICC line placement On 01/19/25, Continue monitoring BMP On 01/21/25, Serum creatinine is 1.24. Wound culture shows possible anaerobes and few lactobacillus species. The patient is scheduled for wound closure on 01/22/2025, by Podiatry. On 01/22/25, Patient is status post left foot delayed wound closure performed by Podiatry earlier today. No new complaints reported. Denies pain, fever, or shortness of breath. Patient was waiting for clear by nephrology for PICC line insertion due to elevated creatinine (1.33 mg/dL) for planned 6-week IV antibiotic therapy. Surgical history: CABG 2015, PCI 2023, multiple staged right toes amputation last one 9 years ago, right ankle repair with plates placed. Family history: mother and father had heart disease Social history: Lives in [place] alone, has caregiver that goes from 4pm until 4 am (NOK son, Emre Rhodes). Denies current tobacco, alcohol and other drug abuse. Allergies: Ceftriaxone, morphine, shrimp Home medication: Does not recall Patient seen and examined at bedside. Patient is alert and oriented to time, place person and responding to all questions. Eyes: No Pain, No Vision change, No Conjunctivae inflammation, No Eyelid inflammation, No Other, No Redness ENT: No Ear pain, No Ear discharge, No Nose pain, No Nose discharge, No Nose congestion, No Mouth pain, No Mouth swelling, No Throat pain, No Throat swelling, No Other Cardiovascular: No Chest Pain, No Palpitations, No Orthopnea, No Paroxysmal No Dyspnea, No Edema, No Lt Headedness, No Other Respiratory: No Cough, No Dry, No Shortness of breath, No SOB with exertion, No Wheezing, No Hemoptysis, No Pleuritic Pain, No Sputum, No Other Gastrointestinal: Nausea, Vomiting, No Abdominal Pain, No Diarrhea, No Constipation, No Melena, No Hematochezia, No Other Genitourinary: No Dysuria, No Frequency, No Incontinence, No Hematuria, No Retention, No Other Musculoskeletal: No other, No neck pain, No shoulder pain, No arm pain, No back pain, No hand pain, leg pain, foot pain Skin: No Rash, No Lesions, No Jaundice, No Bruising, No Other Objective vital signs Vital Sign Date Time Temp Pulse Resp B/P (MAP) Pulse Ox O2 Delivery O2 Flow Rate FiO2 01/22/25 12:55 64 12 133/43 (73) 97 01/22/25 12:26 97.0 97.0 01/22/25 12:26 Room Air 0 97 Total Intake and Output 01/21/25 01/21/25 01/22/25 15:00 23:00 07:00 Intake Total 100 ml 975 ml 600 ml Balance 100 ml 975 ml 600 ml medications Current Medications Medications Dose Ordered Sig/Bree Route Start Time Stop Time Status Last Admin Dose Admin Acetaminophen 325 mg Q4HP PRN PO 01/16/25 16:45 01/19/25 00:31 325 MG Ondansetron HCl 4 mg Q4HP PRN IV 01/16/25 16:45 Enoxaparin Sodium 40 mg DAILY SC 01/17/25 10:00 01/21/25 10:12 40 MG Vancomycin HCl 0 ml @ 0 mls/hr PER PHARMACY IV 01/16/25 16:45 Piperacillin Sod/ Tazobactam Sod 100 ml @ 25 mls/hr Q8H IV 01/17/25 02:00 01/22/25 10:11 25 MLS/HR Sodium Chloride 1,000 ml @ 75 mls/hr [id number] IV 01/16/25 16:45 01/21/25 03:25 75 MLS/HR Ascorbic Acid 500 mg DAILY PO 01/17/25 10:00 01/21/25 10:16 500 MG Carvedilol 3.125 mg BID PO 01/16/25 22:00 Hold Clopidogrel Bisulfate 75 mg DAILY PO 01/17/25 10:00 Hold Docusate Sodium 100 mg HS PO 01/16/25 22:00 Sucralfate 1 gm DAILY PO 01/17/25 10:00 Hold Lisinopril 10 mg DAILY PO 01/17/25 10:00 01/21/25 10:15 10 MG Dextrose 50 ml UD PRN IV 01/16/25 16:45 Cancel Diagnostic Test (Pha) 1 strip IQ4HR 01/16/25 20:00 01/22/25 08:09 1 STRIP Insulin Human Regular IQ4HR SC 01/16/25 20:00 01/21/25 20:48 9 UNITS Dextrose 50 ml UD PRN IV 01/16/25 19:45 Aspirin 81 mg DAILY PO 01/17/25 10:00 01/21/25 10:16 81 MG Acetaminophen/ Hydrocodone Bitart 1 tab Q8HPRN PRN PO 01/17/25 11:45 01/17/25 12:37 1 TAB Vancomycin HCl 100 ml @ 200 mls/hr Q12H IV 01/18/25 01:00 01/22/25 13:49 200 MLS/HR Pantoprazole Sodium 40 mg Q24H PO 01/18/25 22:00 01/21/25 20:55 40 MG Insulin Glargine 20 units BID SC 01/20/25 10:00 01/21/25 20:49 20 UNITS Examination General Appearance: Cooperative. Well developed. Well nourished. NAD Head Exam: Normal inspection Neck Exam: Normal inspection. Non-tender. Normal alignment Pulmonary/Respiratory: Chest non-tender. Clear bilateral breath sounds, no crackles, no wheezing. Cardiovascular/Chest: Regular rate and rhythm. No murmurs. No JVD. Peripheral Pulses: 2+ Radial (R). 2+ Radial (L). 2+ Pedal (R). 2+ Pedal (L) Abdominal Exam: Normal bowel sounds. Soft. normal abdomen, no visible veins, Nontender. No hepatospenomegaly. No masses Ankle Exam: Negative ankle edema Lower extremities: Negative lower extremity edema Neuro/Mental Status: A&O x4. Coherent. Thoughts/Psych: Normal thought pattern. Appropriate mood and affect. Good judgement and insight MSK/skin exam: Mobilizes 4 limbs. Skin is dry and warm. Right toes amputaed, no purulent discharge nor erythema. Left foot has erythema on first metatarsal region. Diminished pedial and posterior tibial pulses. laboratory and microbiology Laboratory Tests 01/22/25 08:07 Test 01/22/25 08:07 Range/Units Serum Glucose 83 74-106 mg/dL Microbiology Date/Time Source Procedure Growth Status 01/17/25 11:02 Foot Left Gram Stain - Final Complete 01/17/25 11:02 Anaerobic Culture - Final Bacteroides fragilis Lactobacillus acidophilus Complete 01/17/25 11:02 Foot Left Aerobic Culture - Final Complete 01/16/25 20:07 Voided Urine Urine Culture - Final Complete 01/16/25 13:59 Blood Blood Culture - Final NO GROWTH AFTER 5 DAYS OF INCUBATION. Complete Labs and/or images reviewed: Labs reviewed by me, Image(s) reviewed by me Problem List/Assessment/Plan Problem List/Assessment/Plan Left foot osteomyelitis in the 1st metatarsal bone Left foot abscess in the 1st metatarsal bone Left foot cellulitis in the 1st metatarsal bone Left foot diabetic ulcer in the 1st metatarsal bone Type 2 diabetes mellitus with hyperglycemia, uncontrolled Hammertoe deformities Status post Left foot incision and drainage to bone and bone biopsy Status post Left foot delayed wound closure on 01/22/25 Podiatry consult: Weightbearing as tolerated in postoperative shoe. Recommend 6 weeks IV antibiotics. Follow-up with surgeon in 1 week. Renal US: Echogenic kidneys compatible with medical renal disease. Chest X-ray: Interstitial opacities in the left upper lung, may be slightly increased compared to the prior exam. Possibly infectious or inflammatory in nature. No focal consolidation. Correlate with clinical findings. Echocardiogram: Sinus rhythm. Biatrial enlargement. Mild aortic root enlargement. Mild aortic sclerosis. Left ventricular function is borderline at 45 to 50% with normal RV function. Doppler is unremarkable. No pericardial effusion masses or vegetations. Foot CT: Findings which may represent osteomyelitis in the 1st metatarsal bone, adjacent to soft tissue inflammatory changes which may reflect cellulitis. Hammertoe deformities. Bilateral Lower Extremity Arterial Duplex: 20-49% stenosis of bilateral common femoral arteries, right proximal superficial femoral artery, left popliteal artery based on peak systolic velocity criteria. Pain management with Tylenol and [place] Vancomycin per pharmacy Zosyn IV q8h IV NS 75 MLS/HR Zofran 4 MG Iv q4h Colace 100 MG PO hs Vitamin C 500 MG PO daily Accu-check Insulin Lantus Moderate Insulin SS Dextrose 50% dyringe Lovenox 40 MG SC daily MRSA screen negative Blood culture negative Urine Bacterial Culture: >100,000 CFU/mL Mixed Indu, >3 [place] Types Wound culture Anaerobic culture Bacteroides fraglis, lactobacillus acidophilus. pending PICC line insertion clearance by nephrology for IV antibiotics despite elevated creatinine (1.33 mg/dL) LEVI on CKD due to VMN Monitor renal function Avoid nephrotoxic drugs History of hemorrhagic stroke Monitor CAD s/p CABG and PCI Patient currently on aspirin and atorvastatin. Discontinued clopidogrel since last PCI was over one year ago. Hypertension monitor BP Dyslipidemia monitor Asthma, non exacerbated Monitor Obesity, BMI 33.1 kg/m2 I have counseled the patient on healthy lifestyle modifications Diet: Diabetes DVT prophylaxis: Lovenox 40mg Goals of care: Full code, discussed for >30 minutes Plan discussed with patient Plan discussed with Dr. Valdez Plan discussed with: Patient, Other (Nurses) My Orders My Orders Orders - MARK WOOTEN RESIDENT Procedure Category Date Status Time Chest Xray 1 View XY 01/22/25 Resulted 03:21 *Dr. Ocasio Group CONS 01/22/25 Transmitted -[place] 10:29 Dietary Evaluation Review Comments: Nutrition Recommendation: 1) Pankaj 1 pk BID 2) CCHo 60gm + cardiac diet 3) Monitor PO intake, lab values, weight trend, and I/O Expected Outcomes/Goals: Wound to improve Intake to meet >75% estimated needs FU 3-5 days Date of Service: Jan 22, 2025 Billing Provider: KALEIGH VALDEZ MD Common Visit Codes: [id number] INP/OBS CARE(HIGH) MARK WOOTEN RESIDENT Jan 22, 2025 15:29 BYRON YOO RESIDENT Jan 22, 2025 19:44
--- NOTE | 2025-01-22 15:51 | DVHCONRES ---
Date Seen: Jan 22, 2025 Resident Creating Document: KURTIS CHANEY RESIDENT Referring Physician Dr Ngo Reason for Consultation Clearance for PICC line History of Present Illness Kelly Mcarthur is a 74 year old female patient who presents to the ED with chief complaint of nausea, non bloody vomiting with clear emesis, fever, headaches and non healing left foot wound, which started 1 week before her admis timothy. PAtient went to seek assistance at another hospital 1 week ago due to these symptoms, was hospitalized, but did not improve her symptoms after discharge. Denies any other associated symptoms. PMH: HTN, DLD, DM, CAD s/p CABG in 2015 and PCI (last one 2023), asthma, CVA 2015, diabetic foot s/p right toes amputation, arthritis and CKD PSH: CABG 2015, PCI 2023, multiple right toes amputation last one 9 years ago, right ankle repair with plates placed. Family history: mother and father had heart disease Social history: Lives in [place] alone, has caregiver that goes from 4pm until 4 am (NOK son, Emre Rhodes). Denies current tobacco, alcohol and other drug abuse. Allergies: Ceftriaxone, morphine, shrimp Patient seen and examined at bedside. Currently has no new complains. Family History: Cancer G8 MOTHER G8 FATHER FH: heart attack G8 FATHER Family history: Diabetes mellitus G8 MOTHER G8 FATHER Allergies: Coded Allergies: Ceftriaxone (Verified Allergy, Unknown, 09/25/15) Morphine (Unverified Allergy, Unknown, 12/08/16) Shrimp Flavor Agent (non-screening) (Verified Allergy, Unknown, 12/08/16) Home Meds Reported Medications Triamterene & Hydrochlorothiaz (Maxzide) 1 Tab Tab, 1 TAB PO DAILY, #30 TAB 5 Refills 12/08/16 Ascorbic Acid (VITAMIN C TABLET) 500 Mg Tb, 1 TAB PO DAILY, #30 TAB 3 Refills 12/08/16 Ranitidine Hcl (Ranitidine Hcl) 300 Mg Cap, 1 CAP PO DAILY, #30 CAP 3 Refills 12/08/16 Levofloxacin Hemihydrate (LEVOFLOXACIN) 750 Mg Tab, 750 MG PO DAILY, MG 12/08/16 Sucralfate (Sucralfate) 1 Gm Tab, 1 GM PO DAILY, GM 12/08/16 Lisinopril (Lisinopril) 10 Mg Tab, 10 MG PO DAILY, TAB 10/26/15 Aspirin (Aspirin) 325 Mg Tab, 1 TAB PO DAILY, #30 TAB 5 Refills 10/26/15 Carvedilol (Coreg) 3.125 Mg Tab, 1 TAB PO BID, #180 TAB 1 Refill 10/26/15 Docusate Sodium (COLACE CAPSULE) 100 Mg Cp, 100 MG PO HS, CP 10/26/15 Omeprazole (PRILOSEC) 20 Mg Cap, 40 MG PO DAILY, CAP 10/26/15 Clopidogrel Bisulfate (Plavix) 75 Mg Tab, 1 TAB PO DAILY, #90 TAB 1 Refill 10/26/15 Sitagliptin Phosphate (Januvia) 100 Mg Tab, 1 TAB PO DAILY, #30 TAB 5 Refills 10/26/15 Ranitidine Hcl (Ranitidine Hcl) 300 Mg Tab, 1 TAB PO QPM, #90 TAB 3 Refills 10/26/15 Metformin Hydrochloride (Metformin Hcl) 1,000 Mg Tab, 1000 MG PO BID 04/15/12 Insulin Glulisine (Apidra Solostar) Solostar Inj, 5 SC TIDWM 04/15/12 Insulin Glargine (Lantus) 100 Units/Ml Vial, 40 UNITS SC BID 04/15/12 Current Medications Current Medications Medications (Trade) Dose Ordered Sig/Bree Route PRN Reason Start Time Stop Time Status Last Admin Metoclopramide HCl (Reglan Injection) 10 mg ONCE PRN IV NAUSEA / VOMITING 01/22/25 12:15 01/22/25 12:26 DC Hydromorphone HCl (Dilaudid Injection) 0.5 mg Q10M PRN IV SEVERE PAIN (7-10 PAIN SCALE) 01/22/25 12:15 01/22/25 12:56 DC Hydromorphone HCl (Dilaudid Injection) 0.25 mg Q10M PRN IV MODERATE PAIN (4-6 PAIN SCALE) 01/22/25 12:15 01/22/25 12:46 DC Vital Signs Vital Signs Date Time Temp Pulse Resp B/P (MAP) Pulse Ox O2 Delivery O2 Flow Rate FiO2 01/22/25 12:55 64 12 133/43 (73) 97 01/22/25 12:26 97.0 97.0 01/22/25 12:26 Room Air 0 97 Physical Exam General examination- awake, alert, oriented HEENT- PEERLA, no acute nasal discharge Cardiovascular- S1-S2 audible, rate and rhythm regular, no murmur Respiratory- CTAB, no wheeze or rhonchi Gastrointestinal-nontender, bowel sound+. Nondistended Musculoskeletal-no acute joint swelling or tenderness or redness Lower extremity- bandage in the left foot, status post incision and drainage of the wound of the left foot Neurological- cranial nerves intact, no acute dysarthria or dysphagia Psychiatry- denies depression or SI or HI Skin- no acute rash or purpura Labs/Diagnostic Data Labs Test 01/22/25 15:29 01/22/25 08:07 01/21/25 06:27 01/20/25 12:01 Range/Units POC Glucose 228 H 70-106 mg/dl White Blood Count 7.5 4.4-10.8 10^3/uL Red Blood Count 3.57 L 4.0-5.20 10^6/uL Hemoglobin 10.8 L 12.2-16.2 g/dL Hematocrit 32.6 L 36.0-46.0 % Mean Corpuscular Volume 91.4 80.0-100.0 fL Mean Corpuscular Hemoglobin 30.3 28.0-32.0 pg Mean Corpuscular Hemoglobin Concent 33.1 32.0-36.0 g/dL Red Cell Distribution Width 15.0 H 11.8-14.3 % Platelet Count 355 140-450 10^3/uL Mean Platelet Volume 7.4 6.9-10.8 fL Neutrophils (%) (Auto) 56.8 37.0-80.0 % Lymphocytes (%) (Auto) 31.8 10.0-50.0 % Monocytes (%) (Auto) 7.0 0.0-12.0 % Eosinophils (%) (Auto) 3.6 0.0-7.0 % Basophils (%) (Auto) 0.8 0.0-2.0 % Neutrophils # (Auto) 4.2 1.6-8.6 10 ^3/uL Lymphocytes # (Auto) 2.4 0.4-5.4 10 ^3/uL Monocytes # (Auto) 0.5 0-1.3 10 ^3/uL Eosinophils # (Auto) 0.3 0-0.8 10 ^3/uL Basophils # (Auto) 0.1 0-0.2 10 ^3/uL Nucleated Red Blood Cells 0.0 % Prothrombin Time 10.4 9.3-11.8 sec Prothrombin Time INR 0.98 0.9-1.15 Activated Partial Thromboplast Time 23.7 L 24.5-34.5 SEC Sodium Level 147 H 136-145 mmol/L Potassium Level 4.6 3.5-5.1 mmol/L Chloride Level 113 H 98-107 mmol/L Carbon Dioxide Level 24 20-31 mmol/L Anion Gap 10 5-15 Blood Urea Nitrogen 25 H 9-23 mg/dL Creatinine 1.33 H 0.550-1.02 mg/dL Glomerular Filtration Rate Calc 41 >90 mL/min BUN/Creatinine Ratio 18.8 10.0-20.0 Serum Glucose 83 74-106 mg/dL Calcium Level 8.7 8.7-10.4 mg/dL Total Bilirubin 0.4 0.2-1.0 mg/dL Aspartate Amino Transferase (AST) 24 13-40 U/L Alanine Aminotransferase (ALT) 23 7-40 U/L Alkaline Phosphatase 57 46-116 U/L Total Protein 6.7 5.7-8.2 g/dL Albumin 3.6 3.2-4.8 g/dL Magnesium Level 1.9 1.6-2.6 mg/dL Vancomycin Level Trough 19.3 H 5-10 ug/mL Test 01/17/25 05:43 01/16/25 20:07 01/16/25 15:08 01/16/25 13:59 Range/Units Random Vancomycin Level 12.8 H 5-10 ug/mL Urine Color Light-yellow Yellow Urine Clarity Clear Clear Urine pH 6.0 5.0-9.0 Urine Specific [place] 1.018 1.001-1.035 Urine Protein Trace H Negative Urine Ketones Negative Negative Urine Blood 3+ H Negative /uL Urine Nitrite 1+ H Negative Urine Bilirubin Negative Negative Urine Urobilinogen Normal Negative mg/dL Urine Leukocyte Esterase 2+ Negative /uL Urine RBC 47 0 - 4 /hpf Urine Microscopic WBC 37 H 0-5 /HPF Urine Squamous Epithelial Cells Few <5 /hpf Urine Bacteria Few H None Seen /hpf Urine Glucose 4+ H Normal mg/dL Erythrocyte Sedimentation Rate 46 H 0-20 mm/hr Thyroid Stimulating Hormone (TSH) 1.46 0.55-4.78 uIU/mL Test 01/16/25 13:50 01/16/25 13:18 Range/Units Lactic Acid Level 0.8 0.4-2.0 mmol/L Hemoglobin A1c 10.2 H <5.7 % A1C Phosphorus Level 3.9 2.4-5.1 mg/dL C-Reactive Protein High Sensitivity 1.66 H <1.0 mg/dL Triglycerides Level 215 H < 150 mg/dL Cholesterol Level 134 < 200 mg/dL LDL Cholesterol 73 < 100 mg/dL HDL Cholesterol 32 L 40-59 mg/dL Vitamin B12 Level 680 211-911 pg/mL Vitamin D 25-Hydroxy 43.8 30.0-100 ng/mL Microbiology Date/Time Source Procedure Growth Status 01/17/25 11:02 Foot Left Gram Stain - Final Complete 01/17/25 11:02 Anaerobic Culture - Final Bacteroides fragilis Lactobacillus acidophilus Complete 01/17/25 11:02 Foot Left Aerobic Culture - Final Complete 01/16/25 20:07 Voided Urine Urine Culture - Final Complete 01/16/25 13:59 Blood Blood Culture - Final NO GROWTH AFTER 5 DAYS OF INCUBATION. 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 CKD Left foot osteomyelitis Uncontrolled type 2 DM with the HbA1c 10.2 CAD s/p CABG and PCI Hypertension Dyslipidemia Asthma Hyponatremia due to dehydration Plan /recommendations Closely monitor fluid and electrolytes Avoid nephrotoxic medications Strict I&Os Renal ultrasound Strict glycemic control Daily monitor BUN & creatinine We will reassess tomorrow with a renal function test for clearance Accu-Cheks Blood pressure control Lifestyle modifications Podiatry consult Rest of management as per primary team Patient seen and examined by myself today on rounds with the medicine resident, I agree with his assessment and plan Case discussed with the dr Kaur Plan discussed with: Patient SHIV,KURTIS RESIDENT Jan 22, 2025 15:51 SHARON KAUR MD Jan 22, 2025 17:02
--- NOTE | 2025-01-22 16:25 | DVH ---
INDICATION: LEVI TECHNIQUE: Multiple real-time sonographic images of the kidneys and bladder were obtained. COMPARISON: None FINDINGS: RIGHT kidney measures 10.3 cm in length. LEFT kidney measures 10.4 cm in length. No hydronephrosis, urolithiasis, or mass. There is bilateral increase in renal cortical echogenicity. Urinary bladder is unremarkable. IMPRESSION: Echogenic kidneys compatible with medical renal disease.
[2025-01-22 17:00] VITALS: BP 154/69; PULSE 72; RESP 15; TEMP 98.2; O2SAT 96
[2025-01-22] MEDS: ONDANSETRON HCL 4 MG/2 ML VIAL IV PRN (20:11)
[2025-01-22 21:00] VITALS: BP 134/60; PULSE 70; RESP 18; TEMP 98.3; O2SAT 97
[2025-01-22] MEDS: CARVEDILOL 3.125 MG TAB PO SCH (22:06)
[2025-01-23 01:00] VITALS: BP 140/73; PULSE 68; RESP 18; TEMP 98.2; O2SAT 97
[2025-01-23 05:00] VITALS: BP 156/61; PULSE 62; RESP 18; TEMP 97.7; O2SAT 98
[2025-01-23 07:16] LABS: Calcium 8.9 mg/dL (8.7-10.4); Potassium 4.1 mmol/L (3.5-5.1); Sodium 141 mmol/L (136-145)
[2025-01-23 07:17] LABS: Anion Gap 11 (5-15); Carbon Dioxide 22 mmol/L (20-31)
[2025-01-23 07:21] LABS: Hematocrit 33.8 % (36.0-46.0); Hemoglobin 10.8 g/dL (12.2-16.2); Mean Corpuscular Hemoglobin 30.0 pg (28.0-32.0); Mean Corpuscular Volume 93.6 fL (80.0-100.0); Nucleated Red Blood Cells % 0.1 %
[2025-01-23 07:22] LABS: BUN/Creatinine Ratio 14.8 (10.0-20.0); Blood Urea Nitrogen 18 mg/dL (9-23)
[2025-01-23 07:23] LABS: Chloride 108 mmol/L (98-107); Glucose 112 mg/dL (74-106)
--- NOTE | 2025-01-23 07:51 | ECG ---
[facility] Test Date: 2025-01-17 Test Time: 09:40:13 Pat Name: PK COMBS Department: Room: 0279 A Gender: F It Application Administrator: MELVIN : [id number] Requested By: MARK YOU Order Number: [id number] Reading MD: Oswaldo Cowan Measurements Intervals Victor Rate: 69 P: 50 WV: 232 QRS: 85 QRSD: 88 T: 39 QT: 418 QTc: 447 Interpretive Statements Sinus rhythm with 1st degree AV block Septal infarct , age undetermined Electronically Signed On 01-23-2025 9:40:45 PST by Oswaldo Cowan Please click the below link to view image of tracing.
[2025-01-23 09:00] VITALS: BP 152/64; PULSE 59; RESP 16; TEMP 97.4; O2SAT 99
[2025-01-23] MEDS ORDERED: ERTAPENEM SOD INJ 1 GM in SODIUM CHL 0.9% 50 ML IV ONE (11:00)
--- NOTE | 2025-01-23 12:22 | DVHPN2 ---
Progress Note Date Seen: Jan 23, 2025 Resident Creating Document: KURTIS CHANEY RESIDENT Medical Necessity Reason Pt with a Central, PICC or Fol: No Subjective Review of Systems Patient seen and examined at bedside. Currently has no new complains. Other Systems: Patient seen and examined by myself today on rounds with the medicine resident, I agree with his assessment and plan Objective vital signs Vital Sign Date Time Temp Pulse Resp B/P (MAP) Pulse Ox O2 Delivery O2 Flow Rate FiO2 01/23/25 10:03 152/64 01/23/25 10:03 78 01/23/25 09:00 97.4 16 99 97.4 01/22/25 20:00 Room Air* 0 21 Total Intake and Output 01/22/25 01/22/25 01/23/25 15:00 23:00 07:00 Intake Total 200 ml 775 ml 650 ml Balance 200 ml 775 ml 650 ml medications Current Medications Medications Dose Ordered Sig/Bree Route Start Time Stop Time Status Last Admin Dose Admin Acetaminophen 325 mg Q4HP PRN PO 01/16/25 16:45 01/19/25 00:31 325 MG Ondansetron HCl 4 mg Q4HP PRN IV 01/16/25 16:45 01/22/25 20:11 4 MG Enoxaparin Sodium 40 mg DAILY SC 01/17/25 10:00 01/23/25 10:03 40 MG Ascorbic Acid 500 mg DAILY PO 01/17/25 10:00 01/23/25 10:03 500 MG Carvedilol 3.125 mg BID PO 01/16/25 22:00 01/23/25 10:03 3.125 MG Docusate Sodium 100 mg HS PO 01/16/25 22:00 Lisinopril 10 mg DAILY PO 01/17/25 10:00 01/23/25 10:03 10 MG Dextrose 50 ml UD PRN IV 01/16/25 16:45 Cancel Diagnostic Test (Pha) 1 strip IQ4HR 01/16/25 20:00 01/23/25 11:16 1 STRIP Insulin Human Regular IQ4HR SC 01/16/25 20:00 01/23/25 11:17 9 UNITS Dextrose 50 ml UD PRN IV 01/16/25 19:45 Aspirin 81 mg DAILY PO 01/17/25 10:00 01/23/25 10:03 81 MG Acetaminophen/ Hydrocodone Bitart 1 tab Q8HPRN PRN PO 01/17/25 11:45 01/22/25 18:29 1 TAB Pantoprazole Sodium 40 mg Q24H PO 01/18/25 22:00 01/22/25 22:04 40 MG Insulin Glargine 20 units BID SC 01/20/25 10:00 01/23/25 09:54 20 UNITS Ertapenem 1 gm/ Sodium Chloride 50 ml @ 50 mls/hr DAILY IV 01/23/25 13:00 Examination General examination- awake, alert, oriented HEENT- PEERLA, no acute nasal discharge Cardiovascular- S1-S2 audible, rate and rhythm regular, no murmur Respiratory- CTAB, no wheeze or rhonchi Gastrointestinal-nontender, bowel sound+. Nondistended Musculoskeletal-no acute joint swelling or tenderness or redness Lower extremity- bandage in the left foot, status post incision and drainage of the wound of the left foot Neurological- cranial nerves intact, no acute dysarthria or dysphagia Psychiatry- denies depression or SI or HI Skin- no acute rash or purpura laboratory and microbiology Laboratory Tests 01/23/25 06:00 Test 01/23/25 06:00 Range/Units Serum Glucose 112 H 74-106 mg/dL Microbiology Date/Time Source Procedure Growth Status 01/17/25 11:02 Foot Left Gram Stain - Final Complete 01/17/25 11:02 Anaerobic Culture - Final Bacteroides fragilis Lactobacillus acidophilus Complete 01/17/25 11:02 Foot Left Aerobic Culture - Final Complete 01/16/25 20:07 Voided Urine Urine Culture - Final Complete 01/16/25 13:59 Blood Blood Culture - Final NO GROWTH AFTER 5 DAYS OF INCUBATION. 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 Left foot osteomyelitis Uncontrolled type 2 DM with the HbA1c 10.2 CAD s/p CABG and PCI Hypertension Dyslipidemia Asthma Hyponatremia due to dehydration Plan /recommendations Closely monitor fluid and electrolytes Avoid nephrotoxic medications Strict I&Os Renal ultrasound Strict glycemic control Daily monitor BUN & creatinine Urine studies still pending in order to get clearance for PICC line Accu-Cheks Blood pressure control Lifestyle modifications Podiatry consult Rest of management as per primary team Case discussed with the dr Pierre Plan discussed with: Patient, Other (rn) My Orders My Orders Orders - KURTIS CHANEY Procedure Category Date Status Time Urine Sodium LAB 01/22/25 Logged 15:43 Kidney US 01/22/25 Resulted 15:43 Urine LAB 01/22/25 Logged Protein/Creatinine 15:43 Dietary Evaluation Review Comments: Nutrition Recommendation: 1) Pankaj 1 pk BID 2) CCHo 60gm + cardiac diet 3) Monitor PO intake, lab values, weight trend, and I/O Expected Outcomes/Goals: Wound to improve Intake to meet >75% estimated needs FU 3-5 days KURTIS CHANEY Jan 23, 2025 12:22 SHARON PIERRE MD Jan 23, 2025 16:07
[2025-01-23 13:00] VITALS: BP 142/83; PULSE 63; RESP 16; TEMP 97.6; O2SAT 98
[2025-01-23] MEDS: ERTAPENEM SOD INJ 1 GM in SODIUM CHL 0.9% 50 ML IV SCH (13:00)
--- NOTE | 2025-01-23 14:40 | DVHPNRES ---
Progress Note Date Seen: Jan 23, 2025 Resident Creating Document: MARK WOOTEN Medical Necessity Reason Pt with a Central, PICC or Fol: No Subjective Review of Systems Patient is a 74-year-old Pashto-speaking female with past medical history of Hypertension, dyslipidemia, diabetes, CAD s/p CABG in 2015 and PCI (last one 2023), asthma, brain bleed in 2016, diabetic foot s/p right toes amputation, arthritis and CKD, presented to [facility] ED with complaint of nausea, non-bloody vomiting with clear emesis, fever, headaches, and a non- healing left foot wound that started one week prior to admission. The patient sought care at another hospital one week ago for these symptoms and was hospitalized but did not experience improvement after discharge. She denies any other associated symptoms. Upon admission, patient is afebrile, blood pressure was 151/47 mmHg. Labs show normocytic anemia, creatinine 1.14 and serum glucose 116. Foot CT shows osteomyelitis in the 1st metatarsal bone, adjacent to soft tissue inflammatory changes which may reflect cellulitis and hammertoe deformities. On 01/17/25, Patient presented left foot incision and drainage and left foot biopsy (for anatomy and culture) On 01/18/25, The patient reports improvement in her symptoms after procedure. A PICC line is recommended for long-term access. The consult has been initiated for PICC line placement On 01/19/25, Continue monitoring BMP On 01/21/25, Serum creatinine is 1.24. Wound culture shows possible anaerobes and few lactobacillus species. The patient is scheduled for wound closure on 01/22/2025, by Podiatry. On 01/22/25, Patient is status post left foot delayed wound closure performed by Podiatry earlier today. No new complaints reported. Denies pain, fever, or shortness of breath. Patient was waiting for clear by nephrology for PICC line insertion due to elevated creatinine (1.33 mg/dL) for planned 6-week IV antibiotic therapy. On 01/23/25, No acute complaints reported today. Patient is currently being evaluated for nephrology clearance prior to PICC line insertion. Urine sample collected and sent to lab. Surgical history: CABG 2015, PCI 2023, multiple staged right toes amputation last one 9 years ago, right ankle repair with plates placed. Family history: mother and father had heart disease Social history: Lives in [place] alone, has caregiver that goes from 4pm until 4 am (NO[employer] son, Emre Rhodes). Denies current tobacco, alcohol and other drug abuse. Allergies: Ceftriaxone, morphine, shrimp Home medication: Does not recall Patient seen and examined at bedside. Patient is alert and oriented to time, place person and responding to all questions. Eyes: No Pain, No Vision change, No Conjunctivae inflammation, No Eyelid inflammation, No Other, No Redness ENT: No Ear pain, No Ear discharge, No Nose pain, No Nose discharge, No Nose congestion, No Mouth pain, No Mouth swelling, No Throat pain, No Throat swelling, No Other Cardiovascular: No Chest Pain, No Palpitations, No Orthopnea, No Paroxysmal No Dyspnea, No Edema, No Lt Headedness, No Other Respiratory: No Cough, No Dry, No Shortness of breath, No SOB with exertion, No Wheezing, No Hemoptysis, No Pleuritic Pain, No Sputum, No Other Gastrointestinal: No Abdominal Pain, No Diarrhea, No Constipation, No Melena, No Hematochezia, No Other Genitourinary: No Dysuria, No Frequency, No Incontinence, No Hematuria, No Retention, No Other Musculoskeletal: No other, No neck pain, No shoulder pain, No arm pain, No back pain, No hand pain, leg pain, foot pain Skin: No Rash, No Lesions, No Jaundice, No Bruising, No Other Objective vital signs Vital Sign Date Time Temp Pulse Resp B/P (MAP) Pulse Ox O2 Delivery O2 Flow Rate FiO2 01/23/25 10:03 152/64 01/23/25 10:03 78 01/23/25 09:00 97.4 16 99 97.4 01/22/25 20:00 Room Air* 0 21 Total Intake and Output 01/22/25 01/22/25 01/23/25 15:00 23:00 07:00 Intake Total 200 ml 775 ml 650 ml Balance 200 ml 775 ml 650 ml medications Current Medications Medications Dose Ordered Sig/Bree Route Start Time Stop Time Status Last Admin Dose Admin Acetaminophen 325 mg Q4HP PRN PO 01/16/25 16:45 01/19/25 00:31 325 MG Ondansetron HCl 4 mg Q4HP PRN IV 01/16/25 16:45 01/22/25 20:11 4 MG Enoxaparin Sodium 40 mg DAILY SC 01/17/25 10:00 01/23/25 10:03 40 MG Ascorbic Acid 500 mg DAILY PO 01/17/25 10:00 01/23/25 10:03 500 MG Carvedilol 3.125 mg BID PO 01/16/25 22:00 01/23/25 10:03 3.125 MG Docusate Sodium 100 mg HS PO 01/16/25 22:00 Lisinopril 10 mg DAILY PO 01/17/25 10:00 01/23/25 10:03 10 MG Dextrose 50 ml UD PRN IV 01/16/25 16:45 Cancel Diagnostic Test (Pha) 1 strip IQ4HR 01/16/25 20:00 01/23/25 11:16 1 STRIP Insulin Human Regular IQ4HR SC 01/16/25 20:00 01/23/25 11:17 9 UNITS Dextrose 50 ml UD PRN IV 01/16/25 19:45 Aspirin 81 mg DAILY PO 01/17/25 10:00 01/23/25 10:03 81 MG Acetaminophen/ Hydrocodone Bitart 1 tab Q8HPRN PRN PO 01/17/25 11:45 01/22/25 18:29 1 TAB Pantoprazole Sodium 40 mg Q24H PO 01/18/25 22:00 01/22/25 22:04 40 MG Insulin Glargine 20 units BID SC 01/20/25 10:00 01/23/25 09:54 20 UNITS Ertapenem 1 gm/ Sodium Chloride 50 ml @ 50 mls/hr DAILY IV 01/23/25 13:00 01/23/25 13:00 50 MLS/HR Examination General Appearance: Cooperative. Well developed. Well nourished. NAD Head Exam: Normal inspection Neck Exam: Normal inspection. Non-tender. Normal alignment Pulmonary/Respiratory: Chest non-tender. Clear bilateral breath sounds, no crackles, no wheezing. Cardiovascular/Chest: Regular rate and rhythm. No murmurs. No JVD. Peripheral Pulses: 2+ Radial (R). 2+ Radial (L). 2+ Pedal (R). 2+ Pedal (L) Abdominal Exam: Nontender, bowel sound+. Nondistended. Soft. normal abdomen, no visible veins, Nontender. No hepatospenomegaly. No masses Ankle Exam: Negative ankle edema Lower extremities: Negative lower extremity edema. Bandage in the left foot, status post incision and drainage of the wound of the left foot Neuro/Mental Status: A&O x4. Coherent. Thoughts/Psych: Normal thought pattern. Appropriate mood and affect. Good judgement and insight MSK/skin exam: Mobilizes 4 limbs. Skin is dry and warm. Right toes amputated, no purulent discharge nor erythema. Left foot has erythema on first metatarsal region. Diminished pedial and posterior tibial pulses. laboratory and microbiology Laboratory Tests 01/23/25 06:00 Test 01/23/25 06:00 Range/Units Serum Glucose 112 H 74-106 mg/dL Microbiology Date/Time Source Procedure Growth Status 01/17/25 11:02 Foot Left Gram Stain - Final Complete 01/17/25 11:02 Anaerobic Culture - Final Bacteroides fragilis Lactobacillus acidophilus Complete 01/17/25 11:02 Foot Left Aerobic Culture - Final Complete 01/16/25 20:07 Voided Urine Urine Culture - Final Complete 01/16/25 13:59 Blood Blood Culture - Final NO GROWTH AFTER 5 DAYS OF INCUBATION. Complete Labs and/or images reviewed: Labs reviewed by me, Image(s) reviewed by me Problem List/Assessment/Plan Problem List/Assessment/Plan Left foot osteomyelitis in the 1st metatarsal bone Left foot abscess in the 1st metatarsal bone Left foot cellulitis in the 1st metatarsal bone Left foot diabetic ulcer in the 1st metatarsal bone Type 2 diabetes mellitus with hyperglycemia, uncontrolled Hammertoe deformities Status post Left foot incision and drainage to bone and bone biopsy Status post Left foot delayed wound closure on 01/22/25 Podiatry consult: Weightbearing as tolerated in postoperative shoe. Recommend 6 weeks IV antibiotics. Follow-up with surgeon in 1 week. Renal US: Echogenic kidneys compatible with medical renal disease. Chest X-ray: Interstitial opacities in the left upper lung, may be slightly increased compared to the prior exam. Possibly infectious or inflammatory in nature. No focal consolidation. Correlate with clinical findings. Echocardiogram: Sinus rhythm. Biatrial enlargement. Mild aortic root enlargement. Mild aortic sclerosis. Left ventricular function is borderline at 45 to 50% with normal RV function. Doppler is unremarkable. No pericardial effusion masses or vegetations. Foot CT: Findings which may represent osteomyelitis in the 1st metatarsal bone, adjacent to soft tissue inflammatory changes which may reflect cellulitis. Hammertoe deformities. Bilateral Lower Extremity Arterial Duplex: 20-49% stenosis of bilateral common femoral arteries, right proximal superficial femoral artery, left popliteal artery based on peak systolic velocity criteria. Pain management with Tylenol and [place] IV NS 75 MLS/HR Zofran 4 MG Iv q4h Colace 100 MG PO hs Vitamin C 500 MG PO daily Accu-check Insulin Lantus Moderate Insulin SS Dextrose 50% dyringe Lovenox 40 MG SC daily MRSA screen negative Blood culture negative Urine Bacterial Culture: >100,000 CFU/mL Mixed Indu, >3 [place] Types Surgical culture Anaerobic culture Bacteroides fraglis, lactobacillus acidophilus. 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 Discontinued clopidogrel since last PCI was over one year ago. Hypertension monitor BP Dyslipidemia monitor Asthma, non exacerbated Monitor Obesity, BMI 33.1 kg/m2 I have counseled the patient on healthy lifestyle modifications Diet: Carb DVT prophylaxis: Lovenox 40mg Goals of care: Full code Plan discussed with patient Plan discussed with Dr. Valdez Plan discussed with: Patient, Other (RN) My Orders My Orders Orders - MARK WOOTEN Procedure Category Date Status Time Electrocardigram EKG 01/22/25 Resulted 19:28 Ertapenem Sod Inj PHA 01/23/25 In Process (Invanz) 13:00 Pt Request For Service PT 01/23/25 Logged 13:23 Dietary Evaluation Review Comments: Nutrition Recommendation: 1) Pankaj 1 pk BID 2) CCHo 60gm + cardiac diet 3) Monitor PO intake, lab values, weight trend, and I/O Expected Outcomes/Goals: Wound to improve Intake to meet >75% estimated needs FU 3-5 days Visit Coding STANDARD RES Billing Provider: KALEIGH VALDEZ MD Date of Service if different f: Jan 23, 2025 Common Visit Codes: [id number] INP/OBS CARE(HIGH) MARK WOOTEN RESIDENT Jan 23, 2025 14:40 BYRON YOO RESIDENT Jan 23, 2025 19:53
[2025-01-23 17:00] VITALS: BP 118/59; PULSE 59; RESP 16; TEMP 98.1; O2SAT 100
[2025-01-23 17:03] LABS: Protein, Urine 74.2 mg/dL (1-14)
[2025-01-23 21:00] VITALS: BP 150/81; PULSE 69; RESP 16; TEMP 96.5; O2SAT 99
[2025-01-24 01:00] VITALS: BP 121/78; PULSE 70; RESP 17; TEMP 98.3; O2SAT 94
[2025-01-24 04:56] VITALS: BP 126/81; PULSE 73; RESP 16; TEMP 98.3; O2SAT 93
[2025-01-24 06:32] LABS: Hematocrit 31.7 % (36.0-46.0); Hemoglobin 10.5 g/dL (12.2-16.2); Mean Corpuscular Hemoglobin 30.3 pg (28.0-32.0); Mean Corpuscular Volume 91.1 fL (80.0-100.0); Nucleated Red Blood Cells % 0.0 %
[2025-01-24 06:35] LABS: Calcium 8.9 mg/dL (8.7-10.4); Potassium 4.4 mmol/L (3.5-5.1); Sodium 141 mmol/L (136-145)
[2025-01-24 06:36] LABS: Anion Gap 10 (5-15); Carbon Dioxide 23 mmol/L (20-31)
[2025-01-24 06:41] LABS: BUN/Creatinine Ratio 20.3 (10.0-20.0); Glucose 106 mg/dL (74-106)
[2025-01-24 06:43] LABS: Blood Urea Nitrogen 24 mg/dL (9-23); Chloride 108 mmol/L (98-107)
[2025-01-24 08:46] VITALS: BP 137/70; PULSE 73; RESP 17; TEMP 98.1; O2SAT 92
[2025-01-24] MEDS ORDERED: ERTAPENEM SOD INJ 1 GM in SODIUM CHL 0.9% 50 ML IV SCH (10:00)
[2025-01-24 12:39] VITALS: BP 102/54; PULSE 71; RESP 17; TEMP 97.6; O2SAT 98
--- NOTE | 2025-01-24 14:15 | DVHPN2 ---
Progress Note Date Seen: Jan 24, 2025 Resident Creating Document: KURTIS CHANEY RESIDENT Medical Necessity Reason Pt with a Central, PICC or Fol: No Subjective Patient reports: No new complaints, Feels better Other Systems: Patient seen and examined by myself today in round with the medicien resident, I agree with his assessment and plan Objective vital signs Vital Sign Date Time Temp Pulse Resp B/P (MAP) Pulse Ox O2 Delivery O2 Flow Rate FiO2 01/24/25 12:39 97.6 71 17 102/54 (70) 98 97.6 01/24/25 07:57 Room Air* 0 21 Total Intake and Output 01/23/25 01/23/25 01/24/25 15:00 23:00 07:00 Intake Total 50 ml 800 ml 300 ml Balance 50 ml 800 ml 300 ml medications Current Medications Medications Dose Ordered Sig/Bree Route Start Time Stop Time Status Last Admin Dose Admin Acetaminophen 325 mg Q4HP PRN PO 01/16/25 16:45 01/24/25 08:43 325 MG Ondansetron HCl 4 mg Q4HP PRN IV 01/16/25 16:45 01/22/25 20:11 4 MG Enoxaparin Sodium 40 mg DAILY SC 01/17/25 10:00 01/24/25 08:42 40 MG Ascorbic Acid 500 mg DAILY PO 01/17/25 10:00 01/24/25 08:40 500 MG Carvedilol 3.125 mg BID PO 01/16/25 22:00 01/24/25 08:41 3.125 MG Docusate Sodium 100 mg HS PO 01/16/25 22:00 01/23/25 21:57 100 MG Lisinopril 10 mg DAILY PO 01/17/25 10:00 01/24/25 08:42 10 MG Dextrose 50 ml UD PRN IV 01/16/25 16:45 Cancel Diagnostic Test (Pha) 1 strip IQ4HR 01/16/25 20:00 01/24/25 10:47 1 STRIP Insulin Human Regular IQ4HR SC 01/16/25 20:00 01/24/25 10:51 6 UNITS Dextrose 50 ml UD PRN IV 01/16/25 19:45 Aspirin 81 mg DAILY PO 01/17/25 10:00 01/24/25 08:40 81 MG Acetaminophen/ Hydrocodone Bitart 1 tab Q8HPRN PRN PO 01/17/25 11:45 01/22/25 18:29 1 TAB Pantoprazole Sodium 40 mg Q24H PO 01/18/25 22:00 01/23/25 21:55 40 MG Insulin Glargine 20 units BID SC 01/20/25 10:00 01/24/25 08:31 20 UNITS Ertapenem 1 gm/ Sodium Chloride 50 ml @ 50 mls/hr DAILY IV 01/23/25 13:00 01/24/25 10:00 50 MLS/HR Examination General examination- awake, alert, oriented HEENT- PEERLA, no acute nasal discharge Cardiovascular- S1-S2 audible, rate and rhythm regular, no murmur Respiratory- CTAB, no wheeze or rhonchi Gastrointestinal-nontender, bowel sound+. Nondistended Musculoskeletal-no acute joint swelling or tenderness or redness Lower extremity- bandage in the left foot, status post incision and drainage of the wound of the left foot Neurological- cranial nerves intact, no acute dysarthria or dysphagia Psychiatry- denies depression or SI or HI Skin- no acute rash or purpura laboratory and microbiology Laboratory Tests 01/24/25 05:26 Test 01/24/25 05:26 Range/Units Serum Glucose 106 74-106 mg/dL Microbiology Date/Time Source Procedure Growth Status 01/17/25 11:02 Foot Left Gram Stain - Final Complete 01/17/25 11:02 Anaerobic Culture - Final Bacteroides fragilis Lactobacillus acidophilus Complete 01/17/25 11:02 Foot Left Aerobic Culture - Final Complete 01/16/25 20:07 Voided Urine Urine Culture - Final Complete 01/16/25 13:59 Blood Blood Culture - Final NO GROWTH AFTER 5 DAYS OF INCUBATION. 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 Left foot osteomyelitis Uncontrolled type 2 DM with the HbA1c 10.2 CAD s/p CABG and PCI Hypertension Dyslipidemia Asthma Hypernatremia due to dehydration, resolved Nephrotic proteinuria, diabetic nephropathy Plan /recommendations Kidney function slightly improving No urine output charted Strict I&Os Renal ultrasound Strict glycemic control Daily monitor BUN & creatinine Cleared for PICC line placement Outpatient follow up with Nephrology Accu-Cheks Blood pressure control Lifestyle modifications Podiatry consult Rest of management as per primary team Case discussed with the dr Pierre Plan discussed with: Patient Dietary Evaluation Review Comments: Nutrition Recommendation: 1) Pankaj 1 pk BID 2) CCHo 60gm + cardiac diet 3) Monitor PO intake, lab values, weight trend, and I/O Expected Outcomes/Goals: Wound to improve Intake to meet >75% estimated needs FU 3-5 days KURTIS CHANEY RESIDENT Jan 24, 2025 14:14 SAHRON PIERRE MD Jan 24, 2025 16:59
[2025-01-24] MEDS: LIDOCAINE 1% (LOCAL ANESTH.) PF 5ml SDV ID ONE (15:16)
--- NOTE | 2025-01-24 16:21 | DVHDSRES ---
Discharge Summary Date of Admission Resident Creating Document: MARK WOOTEN RESIDENT Jan 16, 2025 at 16:31 Date of Discharge: Jan 24, 2025 Admitting Diagnosis Left foot pain Labs/Diagnostic Data: Laboratory Results Test 01/24/25 08:09 01/24/25 05:26 01/23/25 16:40 01/23/25 01:14 POC Glucose 98 mg/dl (70-106) White Blood Count 5.7 10^3/uL (4.4-10.8) Red Blood Count 3.48 10^6/uL (4.0-5.20) Hemoglobin 10.5 g/dL (12.2-16.2) Hematocrit 31.7 % (36.0-46.0) Mean Corpuscular Volume 91.1 fL (80.0-100.0) Mean Corpuscular Hemoglobin 30.3 pg (28.0-32.0) Mean Corpuscular Hemoglobin Concent 33.2 g/dL (32.0-36.0) Red Cell Distribution Width 14.9 % (11.8-14.3) Platelet Count 312 10^3/uL (140-450) Mean Platelet Volume 7.7 fL (6.9-10.8) Neutrophils (%) (Auto) 71.8 % (37.0-80.0) Lymphocytes (%) (Auto) 20.3 % (10.0-50.0) Monocytes (%) (Auto) 4.4 % (0.0-12.0) Eosinophils (%) (Auto) 2.8 % (0.0-7.0) Basophils (%) (Auto) 0.7 % (0.0-2.0) Neutrophils # (Auto) 4.1 10 ^3/uL (1.6-8.6) Lymphocytes # (Auto) 1.2 10 ^3/uL (0.4-5.4) Monocytes # (Auto) 0.3 10 ^3/uL (0-1.3) Eosinophils # (Auto) 0.2 10 ^3/uL (0-0.8) Basophils # (Auto) 0 10 ^3/uL (0-0.2) Nucleated Red Blood Cells 0.0 % Sodium Level 141 mmol/L (136-145) Potassium Level 4.4 mmol/L (3.5-5.1) Chloride Level 108 mmol/L (98-107) Carbon Dioxide Level 23 mmol/L (20-31) Anion Gap 10 (5-15) Blood Urea Nitrogen 24 mg/dL (9-23) Creatinine 1.18 mg/dL (0.550-1.02) Glomerular Filtration Rate Calc 48 mL/min (>90) BUN/Creatinine Ratio 20.3 (10.0-20.0) Serum Glucose 106 mg/dL (74-106) Calcium Level 8.9 mg/dL (8.7-10.4) Urine Creatinine 67.51 mg/dL (30.0-125.0) Urine Microalbumin 268.0 mg/L (<30.0) Urine Protein/Creatinine Ratio 1.10 Urine Sodium 76 mmol/L (40-220) Urine Total Protein 74.2 mg/dL (1-14) Vancomycin Level Trough 17.8 ug/mL (5-10) Test 01/22/25 08:07 01/21/25 06:27 01/17/25 05:43 01/16/25 20:07 Prothrombin Time 10.4 sec (9.3-11.8) Prothrombin Time INR 0.98 (0.9-1.15) Activated Partial Thromboplast Time 23.7 SEC (24.5-34.5) Total Bilirubin 0.4 mg/dL (0.2-1.0) Aspartate Amino Transferase (AST) 24 U/L (13-40) Alanine Aminotransferase (ALT) 23 U/L (7-40) Alkaline Phosphatase 57 U/L (46-116) Total Protein 6.7 g/dL (5.7-8.2) Albumin 3.6 g/dL (3.2-4.8) Vitamin D 25-Hydroxy 38.7 ng/mL (30.0-100) Parathyroid Hormone (Intact) 78.1 pg/mL (18.4-80.1) Magnesium Level 1.9 mg/dL (1.6-2.6) Random Vancomycin Level 12.8 ug/mL (5-10) Urine Color Light-yellow (Yellow) Urine Clarity Clear (Clear) Urine pH 6.0 (5.0-9.0) Urine Specific [place] 1.018 (1.001-1.035) Urine Protein Trace (Negative) Urine Ketones Negative (Negative) Urine Blood 3+ /uL (Negative) Urine Nitrite 1+ (Negative) Urine Bilirubin Negative (Negative) Urine Urobilinogen Normal mg/dL (Negative) Urine Leukocyte Esterase 2+ /uL (Negative) Urine RBC 47 /hpf (0 - 4) Urine Microscopic WBC 37 /HPF (0-5) Urine Squamous Epithelial Cells Few /hpf (<5) Urine Bacteria Few /hpf (None Seen) Urine Glucose 4+ mg/dL (Normal) Test 01/16/25 15:08 01/16/25 13:59 01/16/25 13:50 01/16/25 13:18 Erythrocyte Sedimentation Rate 46 mm/hr (0-20) Thyroid Stimulating Hormone (TSH) 1.46 uIU/mL (0.55-4.78) Lactic Acid Level 0.8 mmol/L (0.4-2.0) Hemoglobin A1c 10.2 % A1C (<5.7) Phosphorus Level 3.9 mg/dL (2.4-5.1) C-Reactive Protein High Sensitivity 1.66 mg/dL (<1.0) Triglycerides Level 215 mg/dL (< 150) Cholesterol Level 134 mg/dL (< 200) LDL Cholesterol 73 mg/dL (< 100) HDL Cholesterol 32 mg/dL (40-59) Vitamin B12 Level 680 pg/mL (211-911) Other Laboratory Tests 01/24/25 05:26 Brief Hx & Hospital Course: The patient is a 74-year-old Maltese-speaking female with a history of hypertension, dyslipidemia, type 2 diabetes mellitus, coronary artery disease status post CABG in 2015 and PCI in 2023, asthma, prior intracranial hemorrhage in 2015, 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 She presented to [facility] with nausea, non-bloody vomiting, fever, headache, and a non-healing left foot wound that began one week prior. She was previously hospitalized at another facility without improvement. On admission, she was afebrile with a blood pressure of 151/47 mmHg. Laboratory studies revealed normocytic anemia, creatinine of 1.14 mg/dL, and serum glucose of 116 mg/dL. Imaging showed osteomyelitis of the first metatarsal with adjacent cellulitis and hammertoe deformities. Physical examination revealed dry, warm skin, prior right toe amputations, and erythema over the left first metatarsal region with diminished pedal pulses. Hospital course On January 17, 2025, the patient underwent incision and drainage of the left foot with bone biopsy. On January 18, she reported symptomatic improvement after the procedure, and a PICC line was recommended for long-term intravenous antibiotics. On January 19, her basic metabolic panel was monitored. On January 21, her creatinine was 1.24 mg/dL, and wound cultures grew anaerobes and lactobacillus species. She was scheduled for delayed wound closure. On January 22, she underwent delayed wound closure of the left foot and remained clinically stable without pain, fever, or shortness of breath. Nephrology clearance was pending for PICC line placement due to an elevated creatinine of 1.33 mg/dL. On January 23, she had no acute complaints and continued evaluation for PICC clearance. Urine culture was sent for analysis. On January 24, after receiving clearance from Nephrology for PICC line placement, a PICC line was successfully inserted into the right cephalic vein using sterile technique and confirmed with 3CG technology. The line is ready for use. The patient was assessed with the assistance of a Maltese-speaking co-worker and was alert, oriented, and able to communicate her needs. She feels safe returning to her prior living conditions and has a caregiver named Freya who assists her at home. The patient declined transfer to a long term facility and requested home IV antibiotic therapy. The patient agreed to receive home health services from [facility], and her caregiver will assist with IV antibiotic administration upon discharge. The patient is receiving intravenous ertapenem for six weeks, pain management with acetaminophen and [place], and supportive care including IV fluids, antiemetics, bowel regimen, insulin therapy, and DVT prophylaxis. She remains full code and has been counseled on lifestyle modifications. Examination General Appearance: Cooperative. Well developed. Well nourished. Head Exam: Normal inspection Neck Exam: Normal inspection. Non-tender. Normal alignment Pulmonary/Respiratory: Chest non-tender. Clear bilateral breath sounds, no crackles, no wheezing. Cardiovascular/Chest: Regular rate and rhythm. No murmurs. No JVD. Peripheral Pulses: 2+ Radial (R). 2+ Radial (L). 2+ Pedal (R). 2+ Pedal (L) Abdominal Exam: Nontender, bowel sound+. Nondistended. Soft. normal abdomen, no visible veins, Nontender. No hepatospenomegaly. No masses Ankle Exam: Negative ankle edema Lower extremities: Negative lower extremity edema. Bandage in the left foot, status post incision and drainage of the wound of the left foot Neuro/Mental Status: A&O x4. Coherent. Thoughts/Psych: Normal thought pattern. Appropriate mood and affect. Good judgement and insight MSK/skin exam: Mobilizes 4 limbs. Skin is dry and warm. Right toes amputated, no purulent discharge nor erythema. Left foot has erythema on first metatarsal region. Diminished pedial and posterior tibial pulses. Operations or Procedures PATIENT: KP COMBS ACCT: [id number] UNIT: [id number] : 1950 LOC: [facility] ROOM / BED: [facility] A AGE / SEX: 74 / F ADM STATUS: ADM IN SERVICE 1543 ORDERING PHYSICIAN: KURTIS CHANEY PROCEDURE(s): KIDUS - KIDNEY REASON: LEVI ORDER NUMBER(s): [id number], ACCESSION NUMBER(s): [id number] INDICATION: LEVI TECHNIQUE: Multiple real-time sonographic images of the kidneys and bladder were obtained. COMPARISON: None FINDINGS: RIGHT kidney measures 10.3 cm in length. LEFT kidney measures 10.4 cm in length. No hydronephrosis, urolithiasis, or mass. There is bilateral increase in renal cortical echogenicity. Urinary bladder is unremarkable. IMPRESSION: Echogenic kidneys compatible with medical renal disease. PATIENT: KP COMBS ACCT: [id number] UNIT: [id number] : 1950 LOC: [facility] ROOM / BED: [facility] A AGE / SEX: 74 / F ADM STATUS: ADM IN SERVICE 0321 ORDERING PHYSICIAN: MARK WOOTEN PROCEDURE(s): CXR1 - CHEST XRAY 1 VIEW REASON: pre-op ORDER NUMBER(s): [id number], ACCESSION NUMBER(s): [id number] CLINICAL INFORMATION: 74 years old, Female; pre-op. TECHNIQUE: Single AP portable chest radiograph was obtained. COMPARISON: XR CHEST 1 VIEW on DOS: 01/10/25 FINDINGS: Interstitial opacities in the left upper lung appears slightly increased compared to the prior exam. No focal consolidation. No other significant interval change. IMPRESSION: Interstitial opacities in the left upper lung, may be slightly increased compared to the prior exam. Possibly infectious or inflammatory in nature. No focal consolidation. Correlate with clinical findings. --- PATIENT: KP COMBS ACCT: [id number] UNIT: [id number] : 1950 LOC: [facility] ROOM / BED: [facility] / A AGE / SEX: 74 / F ADM STATUS: ADM IN SERVICE 023 ORDERING PHYSICIAN: BYRON YOO RESIDENT PROCEDURE(s): BLEAD - BiLat Low Ext Art Duplex REASON: PAD ORDER NUMBER(s): [id number], ACCESSION NUMBER(s): [id number] Bilateral Lower Extremity Arterial Duplex Clinical History: PAD Comparison: None Technique: Duplex Doppler evaluation including color Doppler and spectral/pulsed waveform analysis of the lower extremity arteries was performed. Findings: RIGHT: Peak systolic velocities are as follows: [facility] 176 cm/s Deep femoral 242 cm/s SFA proximal 150 cm/s SFA mid-portion 136 cm/s SFA distal 112 cm/s Popliteal 77 cm/s Posterior tibial 43 cm/s Anterior tibial 48 cm/s Peroneal N/V cm/s Dorsalis pedis 116 cm/s The waveforms are monophasic with diastolic flow. LEFT: Peak systolic velocities are as follows: [facility] 165 cm/s Deep femoral 152 cm/s SFA proximal 107 cm/s SFA mid-portion 124 cm/s SFA distal 125 cm/s Popliteal 173 cm/s Posterior tibial 131 cm/s Anterior tibial 108 cm/s Peroneal N/V cm/s Dorsalis pedis 143 cm/s The waveforms are monophasic with diastolic flow. IMPRESSION: 20-49% stenosis of bilateral common femoral arteries, right proximal superficial femoral artery, left popliteal artery based on peak systolic velocity criteria. Bilateral Abnormal monophasic arterial waveforms are present suggesting underlying peripheral arterial disease. REFERENCE VALUES, [facility] ([facility]) vascular Imaging Lab Criteria: Peak systolic velocity ranges (in cm/sec) are as follows: <150 cm/s - <20 % stenosis 150-200 cm/s - 20-49% stenosis 200-300 cm/s - 50-75% stenosis >300 cm/s -> 75% stenosis --- PATIENT: KP COMBS ACCT: [id number] UNIT: [id number] : 1950 LOC: ER ROOM / BED: / AGE / SEX: 74 / F ADM STATUS: REG ER SERVICE 1145 ORDERING PHYSICIAN: HONORIO TORRES NP PROCEDURE(s): LFTCT - CT L FOOT WO CONTRAST REASON: Toe pain & R/o OM of the great toe ORDER NUMBER(s): [id number], ACCESSION NUMBER(s): [id number] CLINICAL INDICATION: Toe pain R/o OM of the great toe. TECHNIQUE: Noncontrast CT of the left foot was performed. Sagittal and coronal reformatted images are provided. COMPARISON: None CT Dose: CTDI volume is 7.75 mGy. Dose-length product is 195.1 mGy*cm FINDINGS: No acute fracture. There is some cortical destruction in the 1st metatarsal head, adjacent to soft tissue swelling and subcutaneous gas in the great toe at the level of the IP joint. There are 2nd, 3rd, 4th and 5th hammertoe deformities. There is midfoot and forefoot arthrosis. There is fatty replacement in the muscles of the lower extremity. IMPRESSION: 1. Findings which may represent osteomyelitis in the 1st metatarsal bone, adjacent to soft tissue inflammatory changes which may reflect cellulitis. MRI of the left foot is recommended for further evaluation. 2. Hammertoe deformities. All CT scans at this medical facility are performed using dose modulation techniques as appropriate to a performed exam including the following: Automated exposure control was utilized; adjustment of the MA and/or KV according to patient size; and use of iterative reconstruction technique. --- Operative Report - 2 Report Details Date: 01/22/25 Preop Diagnosis: 1. Left foot osteomyelitis 2. Left foot abscess 3. Left foot cellulitis 4. Left foot diabetic ulcer Postop Diagnosis: Same as preop Surgeon: Johnny Bingham MD Anesthesiologist: See anesthesia Anesthesia: Mac Consent: The patient was informed of the risks and benefits of the procedure. These include but are not limited to complications of anesthesia, postoperative infection, incomplete relief of symptoms, recurrence of symptoms, damage to blood vessels, nerves and tendons, deep venous thrombosis, pulmonary embolism and possible need for repeat surgery in the future. Complications: None Estimated Blood Loss: Minimal Fluids: See anesthesia Findings: Consistent with diagnosis Indications for Surgery: Worsening foot wound Name of Procedure Performed 1. Left foot I&D to bone (36115) 2. Left foot delayed closure (32209) Procedure Details Procedure Details: PRE-PROCEDURE INFORMATION: In the pre-op holding area, the extremity to be operated on was clearly marked and the patient verified correct laterality of the marking. The patient was transferred to the OR table and placed in a supine position. A timeout was performed in which identification of the correct patient, procedure, location, and materials was done. The left foot and leg were prepped and draped in normal sterile fashion. DESCRIPTION OF PROCEDURE: Attention was directed to the left where where previous incision was made. An incision was made over this area and was deepened through blunt dissection. The incision was deepened to the level of abscess and bone. Care was taken to the dissection to avoid any neurovascular and tendinous structures. The incision was deepened to the bone, and the abscess appeared to be purulent fluid consistent with pus. The cortices of the bone was then removed with rongeur an all necrotic tissue. After the abscess was drained, the area was irrigated with 3 L normal saline using cysto tubing. The area was then inspected and any areas of tracking, especially along the tendons were also drained. A delayed closure was then performed using 2-0 nylon after was deemed appropriate with no longer concern for infection. POSTOPERATIVE INFORMATION: The patient tolerated the above noted procedure and anesthesia well and was transferred to the PACU with vital signs stable, and vascular status intact with capillary refill intact to all digits. Can weightbear as tolerated in the postoperative shoe. Recommend 6 weeks IV antibiotics. Follow up with me in 1 week. Condition Good Disposition Still a Patient Visit Coding Podiatry Date of Service if different f: Jan 22, 2025 Billing Provider: JOHNNY BINGHAM DPM Podiatry Common Visit Codes: PROCEDURE ONLY JOHNNY BINGHAM DPM Jan 22, 2025 12:49 DICTATED BY:JOHNNY BINGHAM DPM DICTATED DATE/TIME:01/22/25 1249 --- Operative Report - 2 Report Details Date: 01/17/25 Preop Diagnosis: 1. Left foot osteomyelitis 2. Left foot abscess 3. Left foot cellulitis 4. Left foot diabetic ulcer Postop Diagnosis: Same as preop Surgeon: Johnny Bingham MD Anesthesiologist: See anesthesia Anesthesia: Mac Consent: The patient was informed of the risks and benefits of the procedure. These include but are not limited to complications of anesthesia, postoperative infection, incomplete relief of symptoms, recurrence of symptoms, damage to blood vessels, nerves and tendons, deep venous thrombosis, pulmonary embolism and possible need for repeat surgery in the future. Complications: None Estimated Blood Loss: Minimal Fluids: See anesthesia Findings: Consistent with diagnosis Indications for Surgery: Worsening foot wound Name of Procedure Performed 1. Left foot I&D to bone () 2. Left foot bone biopsy () Procedure Details Procedure Details: PRE-PROCEDURE INFORMATION: In the pre-op holding area, the extremity to be operated on was clearly marked and the patient verified correct laterality of the marking. The patient was transferred to the OR table and placed in a supine position. A timeout was performed in which identification of the correct patient, procedure, location, and materials was done. The left foot and leg were prepped and draped in normal sterile fashion. DESCRIPTION OF PROCEDURE: Attention was directed to the left where area of fluctuance was noted. An incision was made over this area and was deepened through blunt dissection. The incision was deepened to the level of abscess and bone. Care was taken to the dissection to avoid any neurovascular and tendinous structures. The incision was deepened to the bone, and the abscess appeared to be purulent fluid consistent with pus. The cortices of the bone was then removed with rongeur an all necrotic tissue. After the abscess was drained, the area was irrigated with 3 L normal saline using cysto tubing. Deep cultures were then obtained from the wound. The area was then inspected and any areas of tracking, especially along the tendons were also drained. A bone biopsy was then taken of the 1st metatarsal which was deepened to the muscle belly and tendons. The bone was then sent to pathology to determine the extent of osteomyelitis. The wound was packed with Betadine-soaked gauze and we will need to be closed at a later date. POSTOPERATIVE INFORMATION: The patient tolerated the above noted procedure and anesthesia well and was transferred to the PACU with vital signs stable, and vascular status intact with capillary refill intact to all digits. Bone biopsy was taken deep cultures were taken. Patient will return to the OR on Wednesday for delayed closure. Patient will need 6 weeks IV antibiotics. Specimen: First metatarsal Condition Good Disposition Still a Patient Visit Coding Podiatry Date of Service if different f: Jan 17, 2025 Billing Provider: JOHNNY BINGHAM DPM Podiatry Common Visit Codes: PROCEDURE ONLY JOHNNY BINGHAM DPM Jan 17, 2025 10:19 DICTATED BY:JOHNNY BINGHAM DPM DICTATED DATE/TIME:01/17/25 1019 ELECTRONICALLY SIGNED BY:JOHNNY BINGHAM DPM 01/17/25 1019 Condition at Discharge: Stable (RN) Final Diagnosis/Problems List Left foot osteomyelitis in the 1st metatarsal bone Left foot abscess in the 1st metatarsal bone Left foot cellulitis in the 1st metatarsal bone Left foot diabetic ulcer in the 1st metatarsal bone Type 2 diabetes mellitus with hyperglycemia, uncontrolled Hammertoe deformities Status post Left foot incision and drainage to bone and bone biopsy Status post Left foot delayed wound closure on 01/22/25 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 Kaur outpatient clinic within 2 weeks Medications: see prescription continue home medications Scheduled Ascorbic Acid (Vitamin C Tablet), 1 TAB PO DAILY, (Reported) Aspirin (Aspirin), 1 TAB PO DAILY, (Reported) Carvedilol (Coreg), 1 TAB PO BID, (Reported) Clopidogrel Bisulfate (Plavix), 1 TAB PO DAILY, (Reported) Docusate Sodium (Colace Capsule), 100 MG PO HS, (Reported) Insulin Glargine (Lantus), 40 UNITS SC BID, (Reported) Insulin Glulisine (Apidra Solostar), 5 SC TIDWM, (Reported) Levofloxacin Hemihydrate (Levofloxacin), 750 MG PO DAILY, (Reported) Lisinopril (Lisinopril), 10 MG PO DAILY, (Reported) Metformin Hydrochloride (Metformin Hcl), 1,000 MG PO BID, (Reported) Omeprazole (Prilosec), 40 MG PO DAILY, (Reported) Ranitidine Hcl (Ranitidine Hcl), 1 TAB PO QPM, (Reported) Ranitidine Hcl (Ranitidine Hcl), 1 CAP PO DAILY, (Reported) Sitagliptin Phosphate (Januvia), 1 TAB PO DAILY, (Reported) Sucralfate (Sucralfate), 1 GM PO DAILY, (Reported) Triamterene & Hydrochlorothiaz (Maxzide), 1 TAB PO DAILY, (Reported) Discharge Statement: "Patient was advised to return to the ER or call 911 if any headaches, dizziness, shortness of breath, chest pain, abdominal pain, bleeding, fevers, or worsening of medical condition. Patient was counseled about treatment plan, medications, possible side effects, patientverbalized understanding. All questions were answered to the best of my ability. 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
[2025-01-24 16:38] VITALS: BP 117/64; PULSE 72; RESP 19; TEMP 97.9; O2SAT 99
[2025-01-24 21:10] VITALS: BP 132/58; PULSE 75; RESP 17; TEMP 98.5; O2SAT 95
[2025-01-24] MEDS: SODIUM CHLOR 0.9% PF (SALINE LOCK) 10ML VIAL/SYR IV SCH (22:38)
[2025-01-25 01:23] VITALS: BP 128/94; PULSE 80; RESP 17; TEMP 98.7; O2SAT 94
[2025-01-25 05:17] VITALS: BP 130/66; PULSE 70; RESP 18; TEMP 97.8; O2SAT 94
[2025-01-25 06:56] LABS: Hematocrit 31.6 % (36.0-46.0); Hemoglobin 10.5 g/dL (12.2-16.2); Mean Corpuscular Hemoglobin 30.6 pg (28.0-32.0); Mean Corpuscular Volume 92.4 fL (80.0-100.0); Nucleated Red Blood Cells % 0.0 %
[2025-01-25 07:07] LABS: Anion Gap 12 (5-15); Carbon Dioxide 22 mmol/L (20-31); Potassium 4.0 mmol/L (3.5-5.1); Sodium 142 mmol/L (136-145)
[2025-01-25 07:08] LABS: Calcium 9.1 mg/dL (8.7-10.4)
[2025-01-25 07:09] LABS: Chloride 108 mmol/L (98-107)
[2025-01-25 07:14] LABS: BUN/Creatinine Ratio 17.7 (10.0-20.0); Blood Urea Nitrogen 20 mg/dL (9-23)
[2025-01-25 07:15] LABS: Glucose 69 mg/dL (74-106)
[2025-01-25 09:00] VITALS: BP 145/56; PULSE 64; RESP 16; TEMP 97.8; O2SAT 98
--- NOTE | 2025-01-25 11:42 | DVHPNRES ---
Progress Note Date Seen: Jan 25, 2025 Resident Creating Document: MARK WOOTEN Medical Necessity Reason Pt with a Central, PICC or Fol: No Subjective Review of Systems Patient is a 74-year-old Occitan-speaking female with past medical history of Hypertension, dyslipidemia, diabetes, CAD s/p CABG in 2015 and PCI (last one 2023), asthma, brain bleed in 2016, diabetic foot s/p right toes amputation, arthritis and CKD, presented to [facility] ED with complaint of nausea, non-bloody vomiting with clear emesis, fever, headaches, and a non- healing left foot wound that started one week prior to admission. The patient sought care at another hospital one week ago for these symptoms and was hospitalized but did not experience improvement after discharge. She denies any other associated symptoms. Upon admission, patient is afebrile, blood pressure was 151/47 mmHg. Labs show normocytic anemia, creatinine 1.14 and serum glucose 116. Foot CT shows osteomyelitis in the 1st metatarsal bone, adjacent to soft tissue inflammatory changes which may reflect cellulitis and hammertoe deformities. On 01/17/25, Patient presented left foot incision and drainage and left foot biopsy (for anatomy and culture) On 01/18/25, The patient reports improvement in her symptoms after procedure. A PICC line is recommended for long-term access. The consult has been initiated for PICC line placement On 01/19/25, Continue monitoring BMP On 01/21/25, Serum creatinine is 1.24. Wound culture shows possible anaerobes and few lactobacillus species. The patient is scheduled for wound closure on 01/22/2025, by Podiatry. On 01/22/25, Patient is status post left foot delayed wound closure performed by Podiatry earlier today. No new complaints reported. Denies pain, fever, or shortness of breath. Patient was waiting for clear by nephrology for PICC line insertion due to elevated creatinine (1.33 mg/dL) for planned 6-week IV antibiotic therapy. On 01/23/25, No acute complaints reported today. Patient is currently being evaluated for nephrology clearance prior to PICC line insertion. Urine sample collected and sent to lab. On 01/25/25, on evaluation today, she states she is well, pain is manageable. Her vitals have remained stable for discharge home with home health services from [facility], and her caregiver will assist with IV antibiotic administration upon discharge. All medications and recommendations were thoroughly explained and the patient states she understands and agrees. Detailed discussion held with patient at bedside were all questions were answered and concerns were addressed. Surgical history: CABG 2015, PCI 2023, multiple staged right toes amputation last one 9 years ago, right ankle repair with plates placed. Family history: mother and father had heart disease Social history: Lives in [place] alone, has caregiver that goes from 4pm until 4 am ([employer] son, Emre Rhodes). Denies current tobacco, alcohol and other drug abuse. Allergies: Ceftriaxone, morphine, shrimp Home medication: Does not recall Patient seen and examined at bedside. Patient is alert and oriented to time, place person and responding to all questions. Eyes: No Pain, No Vision change, No Conjunctivae inflammation, No Eyelid inflammation, No Other, No Redness ENT: No Ear pain, No Ear discharge, No Nose pain, No Nose discharge, No Nose congestion, No Mouth pain, No Mouth swelling, No Throat pain, No Throat swelling, No Other Cardiovascular: No Chest Pain, No Palpitations, No Orthopnea, No Paroxysmal No Dyspnea, No Edema, No Lt Headedness, No Other Respiratory: No Cough, No Dry, No Shortness of breath, No SOB with exertion, No Wheezing, No Hemoptysis, No Pleuritic Pain, No Sputum, No Other Gastrointestinal: No Abdominal Pain, No Diarrhea, No Constipation, No Melena, No Hematochezia, No Other Genitourinary: No Dysuria, No Frequency, No Incontinence, No Hematuria, No Retention, No Other Musculoskeletal: No other, No neck pain, No shoulder pain, No arm pain, No back pain, No hand pain, No leg pain, No foot pain Skin: No Rash, No Lesions, No Jaundice, No Bruising, No Other Objective vital signs Vital Sign Date Time Temp Pulse Resp B/P (MAP) Pulse Ox O2 Delivery O2 Flow Rate FiO2 01/25/25 09:00 97.8 64 16 145/56 (85) 98 97.8 01/24/25 20:00 Room Air* 0 21 Total Intake and Output 01/24/25 01/24/25 01/25/25 15:00 23:00 07:00 Intake Total 50 ml 200 ml 330 ml Balance 50 ml 200 ml 330 ml medications Current Medications Medications Dose Ordered Sig/Bree Route Start Time Stop Time Status Last Admin Dose Admin Acetaminophen 325 mg Q4HP PRN PO 01/16/25 16:45 01/25/25 00:56 325 MG Ondansetron HCl 4 mg Q4HP PRN IV 01/16/25 16:45 01/22/25 20:11 4 MG Enoxaparin Sodium 40 mg DAILY SC 01/17/25 10:00 01/25/25 08:50 40 MG Ascorbic Acid 500 mg DAILY PO 01/17/25 10:00 01/25/25 08:53 500 MG Carvedilol 3.125 mg BID PO 01/16/25 22:00 01/25/25 08:52 3.125 MG Docusate Sodium 100 mg HS PO 01/16/25 22:00 01/24/25 22:34 100 MG Lisinopril 10 mg DAILY PO 01/17/25 10:00 01/25/25 08:51 10 MG Dextrose 50 ml UD PRN IV 01/16/25 16:45 Cancel Diagnostic Test (Pha) 1 strip IQ4HR 01/16/25 20:00 01/25/25 08:00 1 STRIP Insulin Human Regular IQ4HR SC 01/16/25 20:00 01/25/25 00:00 2 UNITS Dextrose 50 ml UD PRN IV 01/16/25 19:45 Aspirin 81 mg DAILY PO 01/17/25 10:00 01/25/25 08:52 81 MG Acetaminophen/ Hydrocodone Bitart 1 tab Q8HPRN PRN PO 01/17/25 11:45 01/22/25 18:29 1 TAB Pantoprazole Sodium 40 mg Q24H PO 01/18/25 22:00 01/24/25 22:34 40 MG Insulin Glargine 20 units BID SC 01/20/25 10:00 01/25/25 09:02 20 UNITS Ertapenem 1 gm/ Sodium Chloride 50 ml @ 50 mls/hr DAILY IV 01/23/25 13:00 01/25/25 09:01 50 MLS/HR Sodium Chloride 10 ml QSHIFT@10,22 IV 01/24/25 22:00 01/25/25 08:53 10 ML Examination General Appearance: Cooperative. Well developed. Well nourished. NAD Head Exam: Normal inspection Neck Exam: Normal inspection. Non-tender. Normal alignment Pulmonary/Respiratory: Chest non-tender. Clear bilateral breath sounds, no crackles, no wheezing. Cardiovascular/Chest: Regular rate and rhythm. No murmurs. No JVD. Peripheral Pulses: 2+ Radial (R). 2+ Radial (L). 2+ Pedal (R). 2+ Pedal (L) Abdominal Exam: Nontender, bowel sound+. Nondistended. Soft. normal abdomen, no visible veins, Nontender. No hepatospenomegaly. No masses Ankle Exam: Negative ankle edema Lower extremities: Negative lower extremity edema. Bandage in the left foot, status post incision and drainage of the wound of the left foot Neuro/Mental Status: A&O x4. Coherent. Thoughts/Psych: Normal thought pattern. Appropriate mood and affect. Good judgement and insight MSK/skin exam: Mobilizes 4 limbs. Skin is dry and warm. Right toes amputated, no purulent discharge nor erythema. Left foot has erythema on first metatarsal region. Diminished pedial and posterior tibial pulses. laboratory and microbiology Laboratory Tests 01/25/25 05:27 Test 01/25/25 05:27 Range/Units Serum Glucose 69 L 74-106 mg/dL Microbiology Date/Time Source Procedure Growth Status 01/17/25 11:02 Foot Left Gram Stain - Final Complete 01/17/25 11:02 Anaerobic Culture - Final Bacteroides fragilis Lactobacillus acidophilus Complete 01/17/25 11:02 Foot Left Aerobic Culture - Final Complete 01/16/25 20:07 Voided Urine Urine Culture - Final Complete 01/16/25 13:59 Blood Blood Culture - Final NO GROWTH AFTER 5 DAYS OF INCUBATION. Complete Labs and/or images reviewed: Labs reviewed by me, Image(s) reviewed by me Problem List/Assessment/Plan Problem List/Assessment/Plan Left foot osteomyelitis in the 1st metatarsal bone Left foot abscess in the 1st metatarsal bone Left foot cellulitis in the 1st metatarsal bone Left foot diabetic ulcer in the 1st metatarsal bone Type 2 diabetes mellitus with hyperglycemia, uncontrolled Hammertoe deformities Status post Left foot incision and drainage to bone and bone biopsy Status post Left foot delayed wound closure on 01/22/25 Podiatry consult: Weightbearing as tolerated in postoperative shoe. Recommend 6 weeks IV antibiotics. Follow-up with surgeon in 1 week. Renal US: Echogenic kidneys compatible with medical renal disease. Chest X-ray: Interstitial opacities in the left upper lung, may be slightly increased compared to the prior exam. Possibly infectious or inflammatory in nature. No focal consolidation. Correlate with clinical findings. Echocardiogram: Sinus rhythm. Biatrial enlargement. Mild aortic root enlargement. Mild aortic sclerosis. Left ventricular function is borderline at 45 to 50% with normal RV function. Doppler is unremarkable. No pericardial effusion masses or vegetations. Foot CT: Findings which may represent osteomyelitis in the 1st metatarsal bone, adjacent to soft tissue inflammatory changes which may reflect cellulitis. Hammertoe deformities. Bilateral Lower Extremity Arterial Duplex: 20-49% stenosis of bilateral common femoral arteries, right proximal superficial femoral artery, left popliteal artery based on peak systolic velocity criteria. Pain management with Tylenol and Purdys IV NS 75 MLS/HR Zofran 4 MG Iv q4h Colace 100 MG PO hs Vitamin C 500 MG PO daily Accu-check Insulin Lantus Moderate Insulin SS Dextrose 50% dyringe Lovenox 40 MG SC daily MRSA screen negative Blood culture negative Urine Bacterial Culture: >100,000 CFU/mL Mixed Indu, >3 [place] Types Wound culture Anaerobic culture Bacteroides fraglis, lactobacillus acidophilus. 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 Discontinued clopidogrel since last PCI was over one year ago. Hypertension monitor BP Dyslipidemia monitor Asthma, non exacerbated Monitor Obesity, BMI 33.1 kg/m2 I have counseled the patient on healthy lifestyle modifications Diet: Carb DVT prophylaxis: Lovenox 40mg Goals of care: Full code Plan discussed with patient Plan discussed with Dr. Do Plan discussed with: Patient, Other (RN) My Orders My Orders Orders - MARK WOOTEN Procedure Category Date Status Time Schedule For Dc [facility] 01/24/25 In Process Clinic F/U 15:27 Discharge DISCHARGE 01/24/25 Transmitted 17:47 Dietary Evaluation Review Comments: Nutrition Recommendation: 1) Pankaj 1 pk BID 2) CCHo 60gm + cardiac diet 3) Monitor PO intake, lab values, weight trend, and I/O Expected Outcomes/Goals: Wound to improve Intake to meet >75% estimated needs FU 3-5 days Visit Coding STANDARD RES Billing Provider: KALEIGH DO MD Date of Service if different f: Jan 25, 2025 Common Visit Codes: [id number] INP/OBS CARE(HIGH) [place] RESIDENT Jan 25, 2025 11:42
[2025-01-25 13:00] VITALS: BP 157/67; PULSE 64; RESP 16; TEMP 98.8; O2SAT 96
[2025-01-25 16:24] VITALS: BP 157/67; PULSE 62; TEMP 37.1
[2025-01-25 16:56] VITALS: BP 139/63; PULSE 87; RESP 14; TEMP 97.8; O2SAT 98
== END 2025-01-25 18:06 | disposition home health service (06) | DRG 579 ==
LOC: ER 11:06 → OVERFLOW 16:31 → WEST WING 20:30
PROVIDERS: ADMIT Internal Medicine Geriatric Medicine; ATTEND Internal Medicine Geriatric Medicine
PROC: 0QBP0ZX Excision of Left Metatarsal, Open Approach, Diagnostic (ICD-10-PCS; 2025-01-17)
PROC: 0Y9N0ZZ Drainage of Left Foot, Open Approach (ICD-10-PCS; principal; 2025-01-17 09:56)
PROC: 0Y9N0ZZ Drainage of Left Foot, Open Approach (ICD-10-PCS; 2025-01-22)
PROC: 02HV33Z Insertion of Infusion Device into Superior Vena Cava, Percutaneous Approach (ICD-10-PCS; 2025-01-24)
PROC: B548ZZA Ultrasonography of Superior Vena Cava, Guidance (ICD-10-PCS; 2025-01-24)
DX: L03.116 Cellulitis of left lower limb (principal); N17.0 Acute kidney failure with tubular necrosis; E87.0 Hyperosmolality and hypernatremia; M86.8X7 Other osteomyelitis, ankle and foot; E87.1 Hypo-osmolality and hyponatremia; L02.612 Cutaneous abscess of left foot; E11.621 Type 2 diabetes mellitus with foot ulcer; N18.9 Chronic kidney disease, unspecified; J45.909 Unspecified asthma, uncomplicated; F32.A Depression, unspecified; I12.9 Hypertensive chronic kidney disease with stage 1 through stage 4 chronic kidney disease, or unspecified chronic kidney disease; E66.9 Obesity, unspecified; E11.69 Type 2 diabetes mellitus with other specified complication; E11.22 Type 2 diabetes mellitus with diabetic chronic kidney disease; E11.65 Type 2 diabetes mellitus with hyperglycemia; E78.5 Hyperlipidemia, unspecified; E86.0 Dehydration; I25.10 Atherosclerotic heart disease of native coronary artery without angina pectoris; M20.42 Other hammer toe(s) (acquired), left foot; Z88.5 Allergy status to narcotic agent; Z88.1 Allergy status to other antibiotic agents; Z86.73 Personal history of transient ischemic attack (TIA), and cerebral infarction without residual deficits; Z82.49 Family history of ischemic heart disease and other diseases of the circulatory system; Z95.1 Presence of aortocoronary bypass graft; Z83.3 Family history of diabetes mellitus; Z80.9 Family history of malignant neoplasm, unspecified; M21.962 Unspecified acquired deformity of left lower leg; Z79.82 Long term (current) use of aspirin; Z68.34 Body mass index [BMI] 34.0-34.9, adult
CPT/HCPCS: 36415; 36569; 71045; 73700; 76775; 76937; 80048; 80053; 80061; 80202; 81001; 82043; 82306; 82570; 82607; 82962; 83036; 83605; 83735; 83970; 84100; 84156; 84300; 84443; 85025; 85610; 85652; 85730; 86141; 86850; 86900; 86901; 87040; 87070; 87075; 87076; 87081; 87086; 87205; 93005; 93306; 93925; 97163; G0378; J1100; J1335; J1815; J2003; J2250; J2405; J2543; J2704; J3490

== ENCOUNTER 2025-02-01 12:31 | Inpatient (IN) | payer OTHER, MEDICAID ==
[~2025-02-01] VITALS: Ht 157.5 cm; Wt 81.8 kg
[2025-02-01 13:31] LABS: Hematocrit 33.2 % (36.0-46.0); Hemoglobin 10.8 g/dL (12.2-16.2); Mean Corpuscular Hemoglobin 29.9 pg (28.0-32.0); Mean Corpuscular Volume 91.8 fL (80.0-100.0); Nucleated Red Blood Cells % 0.1 %
[2025-02-01 13:37] LABS: Potassium 5.0 mmol/L (3.5-5.1); Sodium 141 mmol/L (136-145)
[2025-02-01 13:38] LABS: Anion Gap 10 (5-15); Carbon Dioxide 22 mmol/L (20-31)
[2025-02-01 13:39] LABS: Calcium 9.0 mg/dL (8.7-10.4)
[2025-02-01 13:41] LABS: Chloride 109 mmol/L (98-107)
[2025-02-01 13:43] LABS: BUN/Creatinine Ratio 21.5 (10.0-20.0)
--- NOTE | 2025-02-01 13:45 | ED.PDOC ---
History of Present Illness(SKN HPI Comments 74y F who presents to the ED for chief complaint of wound check. 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 Pt was discharge to have home health IV antibiotics since. Pt today had home health nurse come today to administer the antibiotics and noted blood in IV line and was not able to administer her IV ertapenem. Pt nurse noted possible infection to the L foot at site of surgery which had jammie bandage applied and told to come to the ED for evaluation. Pt now in ED, has jammie bandage to L foot and noted pinching pain to the L heel of foot. Pt otherwise has noted BP of 117/ 41 in the ED, with otherwise stable vitals. Pt denies any other symptoms at this time. Chief Complaint: Wound Check Time Seen by MD: 13:39 Primary Care Provider: HIRAM History of Present Illness: Nurses Notes, Medications, Allergies Allergies: Coded Allergies: Ceftriaxone (Verified Allergy, Unknown, 09/25/15) Morphine (Unverified Allergy, Unknown, 12/08/16) Shrimp Flavor Agent (non-screening) (Verified Allergy, Unknown, 12/08/16) Home Meds Reported Medications Triamterene & Hydrochlorothiaz (Maxzide) 1 Tab Tab, 1 TAB PO DAILY, #30 TAB 5 Refills 12/08/16 Ascorbic Acid (VITAMIN C TABLET) 500 Mg Tb, 1 TAB PO DAILY, #30 TAB 3 Refills 12/08/16 Ranitidine Hcl (Ranitidine Hcl) 300 Mg Cap, 1 CAP PO DAILY, #30 CAP 3 Refills 12/08/16 Levofloxacin Hemihydrate (LEVOFLOXACIN) 750 Mg Tab, 750 MG PO DAILY, MG 12/08/16 Sucralfate (Sucralfate) 1 Gm Tab, 1 GM PO DAILY, GM 12/08/16 Lisinopril (Lisinopril) 10 Mg Tab, 10 MG PO DAILY, TAB 10/26/15 Aspirin (Aspirin) 325 Mg Tab, 1 TAB PO DAILY, #30 TAB 5 Refills 10/26/15 Carvedilol (Coreg) 3.125 Mg Tab, 1 TAB PO BID, #180 TAB 1 Refill 10/26/15 Docusate Sodium (COLACE CAPSULE) 100 Mg Cp, 100 MG PO HS, CP 10/26/15 Omeprazole (PRILOSEC) 20 Mg Cap, 40 MG PO DAILY, CAP 10/26/15 Clopidogrel Bisulfate (Plavix) 75 Mg Tab, 1 TAB PO DAILY, #90 TAB 1 Refill 10/26/15 Sitagliptin Phosphate (Januvia) 100 Mg Tab, 1 TAB PO DAILY, #30 TAB 5 Refills 10/26/15 Ranitidine Hcl (Ranitidine Hcl) 300 Mg Tab, 1 TAB PO QPM, #90 TAB 3 Refills 10/26/15 Metformin Hydrochloride (Metformin Hcl) 1,000 Mg Tab, 1000 MG PO BID 04/15/12 Insulin Glulisine (Apidra Solostar) Solostar Inj, 5 SC TIDWM 04/15/12 Insulin Glargine (Lantus) 100 Units/Ml Vial, 40 UNITS SC BID 04/15/12 Information Source: Patient, Friend Mode of Arrival: Ambulatory Brought in by: friend Severity: Moderate Timing: Days Duration: Since onset Prehospital treatment: None Location: Leg Mechanism: Preceding Wound Developed: Generalized erythema Object: None Condition of Object: None Retained Foreign Body: No Wound Type: None Immunization Status of Animal: Unknown Tetanus: Unknown History of: Diabetes Associated Signs and Symptoms: Redness Past Medical History PAST MEDICAL HISTORY: Asthma, CKF, CVA, Depression, DM, High Lipids, HTN Surgical History: , PTCA Surgical History (Other): L leg surgery, B/L foot surgery, WASH TEST CHECKER History: No Pertinent WASH TEST CHECKER History Family History Family History: Family hx of DM, Family hx of Cancer Social History Smoker: Non-Smoker Alcohol: Denies ETOH Use Drugs: Denies Drug Use Lives In: Home Constitutional: denies: chills, diaphoresis, fatigue, fever, malaise, sweats, weakness, others EENTM: denies: blurred vision, double vision, ear bleeding, ear discharge, ear drainage, ear pain, ear ringing, eye pain, eye redness, hearing loss, mouth melonie n, mouth swelling, nasal discharge, nose bleeding, nose congestion, nose pain, photophobia, tearing, throat pain, throat swelling, voice changes, others Respiratory: denies: cough, hemoptysis, orthopnea, SOB at rest, shortness of breath, SOB with excertion, stridor, wheezing, others Cardiovascular: denies: chest pain, dizzy spells, diaphoresis, Dyspnea on exertion, edema, irregular heart beat, left arm pain, lightheadedness, palpitations, PND, syncope, others Gastrointestinal: denies: abdomen distended, abdominal pain, blood streaked bowels, constipated, diarrhea, dysphagia, difficulty swallowing, hematemesis, melena, nausea, poor appetite, poor fluid intake, rectal bleeding, rectal pain, vomiting, others Genitourinary: denies: abnormal vagina bleeding, burning, dyspareunia, dysuria, flank pain, frequency, hematuria, incontinence, pain, , vagina discharge, urgency, others Neurological: denies: dizziness, fainting, headache, left sided numbness, left sided weakness, numbness, paresthesia, pre-existing deficit, right sided numbness, right sided weakness, seizure, speech problems, tingling, tremors, weakness, others Musculoskeletal: denies: back pain, gout, joint pain, joint swelling, muscle pain, muscle stiffness, neck pain, others Integumetry: reports: wounds (l leg); denies: bruises, change in color, change in hair/nails, dryness, laceration, lesions, lumps, rash, others Allergic/Immunocompromised: denies: Difficulty Healing, Frequent Infections, Hives, Itching, others Hematologic/Lymphatic: denies: anemia, blood clots, easy bleeding, easy bruising, swollen glands, others Endocrine: denies: excessive hunger, excessive sweating, excessive thirst, excessive urination, flushing, intolerance to cold, intolerance to heat, unexplained weight gain, unexplained weight loss, others Psychiatric: denies: anxiety, bipolar disorder, depression, hopeless, panic disorder, schizophrenia, sleepless, suicidal, others All Other Systems: Reviewed and Negative Physical Exam General Appearance: Moderate Distress HEENT: Normal ENT Inspection, Pharynx Normal, TMs Normal Neck: Full Range of Motion, Non-Tender, Normal, Normal Inspection Respiratory: Chest Non-Tender, Lungs Clear, No Accessory Muscle Use, No Respiratory Distress, Normal Breath Sounds Cardiovascular: No Edema, No JVD, No Murmur, No Gallop, Normal Peripheral Pulses, Regular Rate/Rhythm Breast Exam: Deferred Gastrointestinal: No Organomegaly, Non Tender, No Pulsatile Mass, Normal Bowel Sounds, Soft Genitalia: Deferred Pelvic: Deferred Rectal: Deferred Extremities: No calf tenderness, Normal capillary refill, No pedal edema, Other (The patient has a PICC line to the right arm, the patient has a wound to the left foot) Musculoskeletal : Apperance: Normal Neurologic: Alert, retail banker II-XII nml as Tested, No Motor Deficits, Normal Affect, Normal Mood, No Sensory Deficits Cerebellar Function: Normal Reflexes: Normal Skin: Dry, Normal Color, Warm Lymphatic: No Adenopathy Was a procedure done? Was a procedure done?: No Differential Diagnosis (INTG) Differential Diagnosis: N/A Abscess: Abscess, Bacteremia, Cellulitis X-Ray, Labs, Meds, VS Vital Signs Date Time Temp Pulse Resp B/P (MAP) Pulse Ox O2 Delivery O2 Flow Rate FiO2 02/01/25 15:34 97.5 67 17 108/62 (77) 97 97.5 02/01/25 15:34 67 17 97 Room Air 02/01/25 12:41 97.6 81 18 117/41 96 97.6 Lab Test 02/01/25 13:21 Range/Units White Blood Count 7.2 4.4-10.8 10^3/uL Red Blood Count 3.62 L 4.0-5.20 10^6/uL Hemoglobin 10.8 L 12.2-16.2 g/dL Hematocrit 33.2 L 36.0-46.0 % Mean Corpuscular Volume 91.8 80.0-100.0 fL Mean Corpuscular Hemoglobin 29.9 28.0-32.0 pg Mean Corpuscular Hemoglobin Concent 32.6 32.0-36.0 g/dL Red Cell Distribution Width 14.4 H 11.8-14.3 % Platelet Count 328 140-450 10^3/uL Mean Platelet Volume 7.7 6.9-10.8 fL Neutrophils (%) (Auto) 57.0 37.0-80.0 % Lymphocytes (%) (Auto) 32.6 10.0-50.0 % Monocytes (%) (Auto) 6.8 0.0-12.0 % Eosinophils (%) (Auto) 2.9 0.0-7.0 % Basophils (%) (Auto) 0.7 0.0-2.0 % Neutrophils # (Auto) 4.1 1.6-8.6 10 ^3/uL Lymphocytes # (Auto) 2.3 0.4-5.4 10 ^3/uL Monocytes # (Auto) 0.5 0-1.3 10 ^3/uL Eosinophils # (Auto) 0.2 0-0.8 10 ^3/uL Basophils # (Auto) 0.1 0-0.2 10 ^3/uL Nucleated Red Blood Cells 0.1 % Erythrocyte Sedimentation Rate 52 H 0-20 mm/hr Sodium Level 141 136-145 mmol/L Potassium Level 5.0 3.5-5.1 mmol/L Chloride Level 109 H 98-107 mmol/L Carbon Dioxide Level 22 20-31 mmol/L Anion Gap 10 5-15 Blood Urea Nitrogen 26 H 9-23 mg/dL Creatinine 1.21 H 0.550-1.02 mg/dL Glomerular Filtration Rate Calc 46 >90 mL/min BUN/Creatinine Ratio 21.5 H 10.0-20.0 Serum Glucose 236 H 74-106 mg/dL Calcium Level 9.0 8.7-10.4 mg/dL PROCEDURE(s): LFTCT - CT L FOOT WO CONTRAST IMPRESSION: 1. Subcutaneous edema along the medial plantar aspect of the great toe, may be due to cellulitis in the appropriate clinical setting. 2. Cortical deformity at the medial aspect of the 1st metatarsal head, may be sequelae of prior Postsurgical changes. Superimposed erosive changes not excluded. Osteomyelitis not excluded. Similar findings are seen in the prior exam. Correlate with clinical findings. If clinically indicated, MRI could be obtained to better characterize. 3. Similar-appearing erosive changes at the proximal articular surface of the proximal phalanx of the great toe. May also be sequelae of osteomyelitis in the appropriate clinical setting. Correlate with clinical findings. 4. Dislocated 2nd digit MTP joint. IV Hep-Lock was established. The patient's chemistry panel shows a BUN of 26 and a creatinine of 1.21 The patient is CBC otherwise within normal limits. The patient is being admitted at this time We feel that this PICC line is not potentially functioning at this time so the patient is being admitted Images Reviewed?: Images reviewed and evaluated by me Time of 1ST Reevaluation: 14:10 Reevaluation 1ST: Unchanged Patient Education/Counseling: Diagnosis, Treatment, Prognosis Family Education/Counseling: Diagnosis, Treatment, Prognosis SEPSIS Sepsis Screen Date sepsis recognized/suspect: Feb 01, 2025 Time Sepsis recognized/suspect: 1243 Recent Procedure: No On Antibiotic Therapy: No Respiratory Rate >20: No Heart Rate >90: No Temp<36 C (96.8 F) or >38.3 C: No SBP <90 or MAP <65 mmHG: No New Acute Mental Status Change: No Is the patient on CPAP, BIPAP,: No Physician Orders Ct L Foot Wo Contrast (02/01/25 13:08) Vital Signs Date Time Temp Pulse Resp B/P (MAP) Pulse Ox O2 Delivery O2 Flow Rate FiO2 02/01/25 15:34 97.5 67 17 108/62 (77) 97 97.5 02/01/25 15:34 67 17 97 Room Air 02/01/25 12:41 97.6 81 18 117/41 96 97.6 Laboratory Tests Test 02/01/25 13:21 White Blood Count 7.2 10^3/uL (4.4-10.8) Departure 1 Departure Time of Disposition: 16:59 Impression: Primary Impression: Osteomyelitis of great toe of left foot Additional Impression: Diabetes uncontrolled Disposition: ADMITTED INPATIENT Admit to: Med Surg Condition: Fair Critical Care Note Critical Care Time?: No Stability Stability form required: Yes Unstable for transfer: ED Physician Assesment (Clinical assesment) Heart Score Heart Score: Heart Score Response (Comments) Value History N/A 0 EKG N/A 0 Age N/A 0 Risk Factors N/A 0 Troponin N/A 0 Total 0 I personally scribed for MOHINDER STOKES MD ([email or web address]) on 02/01/25 at 13:45. Electronically submitted by Feliberto Restrepo ([email or web address]). I personally scribed for MOHINDER STOKES MD ([email or web address]) on 02/01/25 at 13:49. Electronically submitted by Feliberto Restrepo (Outline AppERICK). I personally scribed for MOHINDER STOKES MD ([email or web address]) on 02/01/25 at 14:35. Electronically submitted by Feliberto Restrepo ([email or web address]). MOHINDER STOKES MD Feb 01, 2025 13:45
[2025-02-01 13:46] LABS: Blood Urea Nitrogen 26 mg/dL (9-23); Glucose 236 mg/dL (74-106)
--- NOTE | 2025-02-01 14:24 | DVH ---
CLINICAL INFORMATION: Infection. TECHNIQUE: Axial CT images of the left foot were obtained without IV contrast. Coronal and sagittal reformatted images were obtained, reviewed, and stored. All CT scans at this medical facility are performed using dose modulation techniques as appropriate to a performed exam including the following: Automated exposure control was utilized; adjustment of the MA and/or KV according to patient size; and use of iterative reconstruction technique. CTDIvol = 7.75 mGy DLP = 209.97 mGy-cm COMPARISON: CT CT L FOOT WO CONTRAST on DOS: 01/16/25 FINDINGS: Moderate subcutaneous edema along the medial plantar aspect of the great toe near the MTP joint and portions of the proximal phalanx. Cortical deformity at the medial aspect of the 1st metatarsal head, may be sequelae of prior postsurgical changes, although superimposed erosive changes not excluded in the setting of overlying soft tissue infection. Osteomyelitis can not be excluded. Erosive changes at the proximal articular surface of the proximal phalanx of the great toe also noted, unchanged. No other findings are seen to suggest osteomyelitis. There is dorsal dislocation at the 2nd MTP joint with the proximal phalanx dislocated up to 0.8 cm in the dorsal direction, similar to the prior exam. Moderate arthritic changes of the tarsometatarsal joints. No organized fluid collection identified on limited noncontrast enhanced Exam to suggest abscess. There is dense arterial calcification. IMPRESSION: 1. Subcutaneous edema along the medial plantar aspect of the great toe, may be due to cellulitis in the appropriate clinical setting. 2. Cortical deformity at the medial aspect of the 1st metatarsal head, may be sequelae of prior Postsurgical changes. Superimposed erosive changes not excluded. Osteomyelitis not excluded. Similar findings are seen in the prior exam. Correlate with clinical findings. If clinically indicated, MRI could be obtained to better characterize. 3. Similar-appearing erosive changes at the proximal articular surface of the proximal phalanx of the great toe. May also be sequelae of osteomyelitis in the appropriate clinical setting. Correlate with clinical findings. 4. Dislocated 2nd digit MTP joint.
[2025-02-01 15:34] VITALS: BP 108/62; PULSE 67; RESP 17; TEMP 97.5; O2SAT 97
[2025-02-01] MEDS ORDERED: ACETAMINOPHEN 325 MG TAB PO PRN ×2 (18:45→19:00)
[2025-02-01] MEDS ORDERED: ONDANSETRON HCL 4 MG/2 ML VIAL IV PRN ×2 (18:45→19:00)
[2025-02-01] MEDS ORDERED: HYDROcodone-ACET 5/325MG TAB PO PRN ×2 (18:45→19:00)
[2025-02-01] MEDS ORDERED: DEXTROSE (50%) 50ML SYRG IV PRN ×2 (18:45→19:00)
--- NOTE | 2025-02-01 18:50 | DVHHP2 ---
History of Present Illness Reason for Visit: LEFT FOOT History of Present Illness 74-YEAR-OLD FEMALE PRESENTS FOR EVALUATION OF LEFT FOOT. PATIENT REPORTS BEING SEEN BY HER HOME HEALTH NURSE TODAY AND ADVISED TO PRESENT FOR EVALUATION OF HER PICC LINE THAT COULD BE POSSIBLY INFECTED AND TO HAVE HER LEFT FOOT WOUND ASSESSED. PATIENT IS STATUS POST DEBRIDEMENT OF LEFT FOOT WOUND TWO WEEKS AGO. PATIENT IS CURRENTLY ON IMIPENEM VIA PICC LINE. PATIENT DENIES ANY FEVER OR CHILLS. PATIENT STATES THAT THE DRESSING TO THE PICC LINE OR HER LEFT FOOT WOUND HAS NOT BEEN CHANGED SINCE DISCHARGE 01/24/2025. Past Medical History DIABETES MELLITUS, DYSLIPIDEMIA, HYPERTENSION, CVA, CHRONIC KIDNEY DISEASE, ASTHMA Past Surgical History PTCA, , LEFT FOOT DEBRIDEMENT Family History NONCONTRIBUTORY Smoke: No ALCOHOL: none Drugs: None Lives: with Family Review of Systems Review of Systems REVIEW OF SYSTEMS ARE CURRENTLY NEGATIVE OTHERWISE ADDRESSED IN HPI. Allergies: Coded Allergies: Ceftriaxone (Verified Allergy, Unknown, 09/25/15) Morphine (Unverified Allergy, Unknown, 12/08/16) Shrimp Flavor Agent (non-screening) (Verified Allergy, Unknown, 12/08/16) Medications Current Medications Medications Dose Ordered Sig/Bree Route Start Time Stop Time Status Last Admin Dose Admin Patient Own Medication 1 gm DAILY IV 02/02/25 10:00 UNV Ranolazine 500 mg DAILY PO 02/02/25 10:00 UNV Atorvastatin Calcium 80 mg HS PO 02/01/25 22:00 UNV Aspirin 81 mg DAILY PO 02/02/25 10:00 UNV Sacubitril/ Valsartan 1 tab BID PO 02/01/25 22:00 UNV Losartan Potassium 25 mg DAILY PO 02/02/25 10:00 UNV Carvedilol 3.125 mg Q12HR PO 02/01/25 22:00 UNV Clopidogrel Bisulfate 75 mg DAILY PO 02/02/25 10:00 UNV Exam Vital Signs Vital Signs Date Time Temp Pulse Resp B/P (MAP) Pulse Ox O2 Delivery O2 Flow Rate FiO2 02/01/25 15:34 97.5 67 17 108/62 (77) 97 97.5 02/01/25 15:34 Room Air Exam GEN: 74-YEAR-OLD FEMALE IN NO APPARENT DISTRESS SKIN: WARM, DRY, NORMAL COLOR AND TEXTURE, NO RASH. HEENT: NORMOCEPHALIC ATRAUMATIC, MUCOUS MEMBRANES MOIST AND PINK. NECK: CERVICAL AND SUPRACLAVICULAR NODES NORMAL WITHOUT ENLARGEMENT, TRACHEA IS MIDLINE, THYROID GLAND IS NORMAL WITHOUT MASSES. PULMONARY: CLEAR TO AUSCULTATION AND PERCUSSION BILATERALLY. CARDIAC: REGULAR RATE AND RHYTHM. NO MURMUR ABDOMEN: SOFT, NONTENDER, NONDISTENDED, BOWEL SOUNDS PRESENT ALL 4 QUADRANTS, NO GUARDING, NO RIGIDITY, NO ORGANOMEGALY. EXTREMITIES: NO CYANOSIS, CLUBBING, LEFT FOOT SURGICAL WOUND NO DRAINAGE OR FOUL SMELL, NEURO: CRANIAL NERVES II THROUGH XII GROSSLY INTACT, NORMAL AFFECT AND SPEECH, NO FOCAL MOTOR DEFICITS. Labs/Xrays ORDERING PHYSICIAN: MOHINDER STOKES MD PROCEDURE(s): LFTCT - CT L FOOT WO CONTRAST REASON: infection ORDER NUMBER(s): [id number], ACCESSION NUMBER(s): [id number] CLINICAL INFORMATION: Infection. TECHNIQUE: Axial CT images of the left foot were obtained without IV contrast. Coronal and sagittal reformatted images were obtained, reviewed, and stored. All CT scans at this medical facility are performed using dose modulation techniques as appropriate to a performed exam including the following: Automated exposure control was utilized; adjustment of the MA and/or KV according to patient size; and use of iterative reconstruction technique. CTDIvol = 7.75 mGy DLP = 209.97 mGy-cm COMPARISON: CT CT L FOOT WO CONTRAST on DOS: 01/16/25 FINDINGS: Moderate subcutaneous edema along the medial plantar aspect of the great toe near the MTP joint and portions of the proximal phalanx. Cortical deformity at the medial aspect of the 1st metatarsal head, may be sequelae of prior postsurgical changes, although superimposed erosive changes not excluded in the setting of overlying soft tissue infection. Osteomyelitis can not be excl uded. Erosive changes at the proximal articular surface of the proximal phalanx of the great toe also noted, unchanged. No other findings are seen to suggest osteomyelitis. There is dorsal dislocation at the 2nd MTP joint with the proximal phalanx dislocated up to 0.8 cm in the dorsal direction, similar to the prior exam. Moderate arthritic changes of the tarsometatarsal joints. No organized fluid collection identified on limited noncontrast enhanced Exam to suggest abscess. There is dense arterial calcification. IMPRESSION: 1. Subcutaneous edema along the medial plantar aspect of the great toe, may be due to cellulitis in the appropriate clinical setting. 2. Cortical deformity at the medial aspect of the 1st metatarsal head, may be sequelae of prior Postsurgical changes. Superimposed erosive changes not excluded. Osteomyelitis not excluded. Similar findings are seen in the prior exam. Correlate with clinical findings. If clinically indicated, MRI could be obtained to better characterize. 3. Similar-appearing erosive changes at the proximal articular surface of the proximal phalanx of the great toe. May also be sequelae of osteomyelitis in the appropriate clinical setting. Correlate with clinical findings. 4. Dislocated 2nd digit MTP joint. Labs Test 02/01/25 13:21 Range/Units White Blood Count 7.2 4.4-10.8 10^3/uL Red Blood Count 3.62 L 4.0-5.20 10^6/uL Hemoglobin 10.8 L 12.2-16.2 g/dL Hematocrit 33.2 L 36.0-46.0 % Mean Corpuscular Volume 91.8 80.0-100.0 fL Mean Corpuscular Hemoglobin 29.9 28.0-32.0 pg Mean Corpuscular Hemoglobin Concent 32.6 32.0-36.0 g/dL Red Cell Distribution Width 14.4 H 11.8-14.3 % Platelet Count 328 140-450 10^3/uL Mean Platelet Volume 7.7 6.9-10.8 fL Neutrophils (%) (Auto) 57.0 37.0-80.0 % Lymphocytes (%) (Auto) 32.6 10.0-50.0 % Monocytes (%) (Auto) 6.8 0.0-12.0 % Eosinophils (%) (Auto) 2.9 0.0-7.0 % Basophils (%) (Auto) 0.7 0.0-2.0 % Neutrophils # (Auto) 4.1 1.6-8.6 10 ^3/uL Lymphocytes # (Auto) 2.3 0.4-5.4 10 ^3/uL Monocytes # (Auto) 0.5 0-1.3 10 ^3/uL Eosinophils # (Auto) 0.2 0-0.8 10 ^3/uL Basophils # (Auto) 0.1 0-0.2 10 ^3/uL Nucleated Red Blood Cells 0.1 % Erythrocyte Sedimentation Rate 52 H 0-20 mm/hr Sodium Level 141 136-145 mmol/L Potassium Level 5.0 3.5-5.1 mmol/L Chloride Level 109 H 98-107 mmol/L Carbon Dioxide Level 22 20-31 mmol/L Anion Gap 10 5-15 Blood Urea Nitrogen 26 H 9-23 mg/dL Creatinine 1.21 H 0.550-1.02 mg/dL Glomerular Filtration Rate Calc 46 >90 mL/min BUN/Creatinine Ratio 21.5 H 10.0-20.0 Serum Glucose 236 H 74-106 mg/dL Calcium Level 9.0 8.7-10.4 mg/dL SEPSIS Sepsis Screen Date sepsis recognized/suspect: Feb 01, 2025 Time Sepsis recognized/suspect: 1243 Recent Procedure: No On Antibiotic Therapy: No Respiratory Rate >20: No Heart Rate >90: No Temp<36 C (96.8 F) or >38.3 C: No SBP <90 or MAP <65 mmHG: No New Acute Mental Status Change: No Is the patient on CPAP, BIPAP,: No Physician Orders Ct L Foot Wo Contrast (02/01/25 13:08) (Nf) Ertapenem (02/02/25 10:00) * Wound Consult (02/01/25 ) Ranolazine (Ranexa Er) (02/02/25 10:00) Atorvastatin (Lipitor) (02/01/25 22:00) Aspirin Tablet (02/02/25 10:00) Sacubitril-Valsartan (Entresto 24-26 Mg (02/01/25 22:00) Losartan Tablet (Cozaar Tablet) (02/02/25 10:00) Carvedilol Tablet (Coreg Tablet) (02/01/25 22:00) Clopidogrel Bisulfate (Plavix) (02/02/25 10:00) *Podiatry Consult Otilia(Zoltanmg) (02/01/25 18:21) Mri L Foot Wo Contrast (02/01/25 18:40) Vital Signs Date Time Temp Pulse Resp B/P (MAP) Pulse Ox O2 Delivery O2 Flow Rate FiO2 02/01/25 15:34 97.5 67 17 108/62 (77) 97 97.5 02/01/25 15:34 67 17 97 Room Air 02/01/25 12:41 97.6 81 18 117/41 96 97.6 Laboratory Tests Test 02/01/25 13:21 White Blood Count 7.2 10^3/uL (4.4-10.8) Assessment/Plan Assessment/Plan ASSESSMENT LEFT FOOT? OSTEOMYELITIS STATUS POST LEFT FOOT DEBRIDEMENT UNCONTROLLED DIABETES MELLITUS CHRONIC KIDNEY DISEASE PLAN ADMIT THE PATIENT TO MED SURGE TO THE HOSPITALIST CONTINUE ERTAPENEM PODIATRY CONSULT WOUND CONSULT RESUME HOME MEDICATIONS CONTINUE TREATMENT PER ORDERS. Plan discussed with: Patient My Orders Orders - LUIS WINKLER Procedure Category Date Status Time (Nf) Ertapenem PHA 02/02/25 Logged 10:00 * Wound Consult CONS 02/01/25 Transmitted Ranolazine (Ranexa Er) PHA 02/02/25 Logged 10:00 Atorvastatin (Lipitor) PHA 02/01/25 Logged 22:00 Aspirin Tablet PHA 02/02/25 Logged 10:00 Sacubitril-Valsartan PHA 02/01/25 Logged (Entresto 24-26 Mg 22:00 Losartan Tablet PHA 02/02/25 Logged (Cozaar Tablet) 10:00 Carvedilol Tablet PHA 02/01/25 Logged (Coreg Tablet) 22:00 Clopidogrel Bisulfate PHA 02/02/25 Logged (Plavix) 10:00 *Podiatry Consult CONS 02/01/25 Transmitted Musson([facility]) 18:21 Mri L Foot Wo Contrast MRI 02/01/25 Verified 18:40 Date of Service: Feb 01, 2025 Billing Provider: LUIS WINKLER Common Visit Codes: [id number] INP/OBS CARE (MOD) LUIS WINKLER Feb 01, 2025 18:49
[2025-02-01] MEDS ORDERED: InsuLIN REG 1unit/0.01ml Soln (100units/ml) SC SCH ×2 (22:00)
[2025-02-01] MEDS ORDERED: SACUBITRIL-VALSARTAN 24mg/26mg TAB PO SCH ×2 (22:00)
[2025-02-01] MEDS ORDERED: CARVEDILOL 3.125 MG TAB PO SCH ×2 (22:00)
[2025-02-01] MEDS ORDERED: ACCU-CHEK COMFORT CURVE STRIP VI SCH ×2 (22:00)
[2025-02-01] MEDS ORDERED: ATORVASTATIN 20 MG TAB PO SCH ×2 (22:00)
[2025-02-02] MEDS ORDERED: CLOPIDOGREL BISULFATE 75 MG TAB PO SCH ×2 (10:00)
[2025-02-02] MEDS ORDERED: ENOXAPARIN SOD 30 MG/0.3 ML SYRINGE SC SCH ×2 (10:00)
[2025-02-02] MEDS ORDERED: RANOLAZINE ER 500 MG TAB PO SCH ×2 (10:00)
[2025-02-02] MEDS ORDERED: LOSARTAN POTASSIUM 25 MG TAB PO SCH ×2 (10:00)
== END 2025-02-01 18:46 | disposition left against medical advice (07) | DRG 638 ==
LOC: ER 12:31 → OVERFLOW 18:40 → ER 18:47
PROVIDERS: ADMIT Nurse Practitioner; ATTEND Nurse Practitioner
DX: E11.69 Type 2 diabetes mellitus with other specified complication (principal); M86.8X7 Other osteomyelitis, ankle and foot; E11.22 Type 2 diabetes mellitus with diabetic chronic kidney disease; I12.9 Hypertensive chronic kidney disease with stage 1 through stage 4 chronic kidney disease, or unspecified chronic kidney disease; J45.909 Unspecified asthma, uncomplicated; N18.9 Chronic kidney disease, unspecified; Z53.29 Procedure and treatment not carried out because of patient's decision for other reasons; E78.5 Hyperlipidemia, unspecified; Z79.4 Long term (current) use of insulin; Z79.82 Long term (current) use of aspirin; Z88.1 Allergy status to other antibiotic agents; Z88.5 Allergy status to narcotic agent; Z79.84 Long term (current) use of oral hypoglycemic drugs; Z86.73 Personal history of transient ischemic attack (TIA), and cerebral infarction without residual deficits; Z83.3 Family history of diabetes mellitus; Z98.891 History of uterine scar from previous surgery
CPT/HCPCS: 36415; 73700; 80048; 85025; 85652; G0378